=== PATIENT | female | born 2000 | race Caucasian/White ===

== ENCOUNTER 2019-11-15 18:49 | Observation (INO) | payer OTHER, SELFPAY ==
--- NOTE | 2019-11-15 18:49 | OBADM ---
This patient, Anna Dang, admitted to the OB room [facility] Post [facility] for observation. Patient/family oriented to hospital policies and general routines including ID bracelet, bed and alarms, visiting hours, pain management, procedures, bathroom and other care routines, personal items, smoking policy, room service/diet, and visiting hours. Patient/Family are encouraged to report perceived risks to care and to ask questions if they do not understand what they are told or what they should do.
[2019-11-15 19:15] VITALS: BP 121/68; PULSE 79
[2019-11-15 19:28] LABS: Add Urine Microscopic? YES; Amorphous Sediment Urine Few; Appearance Urine Clear (Clear); Bacteria Urine Trace /hpf; Bilirubin Urine Negative (Negative); Blood Urine Negative (Negative); Color Urine Straw (Yellow); Glucose Urine UA Negative (Negative); Ketones Urine 1+ mg/dL (Negative); Leukocyte Esterase Ur Negative LEU/UL (NEGATIVE); Nitrate Urine Negative (Negative); Protein Urine Negative (Negative); RBC Urine 0-2 /hpf (0-2); Specific Grav Ur 1.011 (1.001-1.035); Squamous Epithelial Cell Urine Many /hpf (Few); Urobilinogen Urine Negative mg/dL (<2.0); WBC Urine 0-3 /hpf (0-3)
[2019-11-15 19:30] VITALS: BP 102/71; PULSE 91
[2019-11-15 19:45] VITALS: BP 99/69; PULSE 96
[2019-11-15 20:00] VITALS: BP 99/56; PULSE 74
[2019-11-15 20:45] VITALS: BP 128/80; PULSE 99; TEMP 37.7
[2019-11-15] MEDS: TERBUTALINE SULFATE 1 MG/ML VIAL 0.25 MG SUB-Q (21:20)
[2019-11-15 21:36] VITALS: BMI 25.3
[2019-11-15 21:59] VITALS: TEMP 37.4
[2019-11-15 22:02] LABS: Fetal Fibronectin Negative
--- NOTE | 2019-12-16 11:12 | P.PNOB_ITS ---
OB - Triage/Final Diagnosis Evaluation Laboratory results: Laboratory Tests 11/15/19 11/15/19 19:12 21:27 Urine Color Straw Urine Appearance Clear Urine pH 8.0 Ur Specific [place] 1.011 Urine Protein Negative Urine Glucose (UA) Negative Urine Ketones 1+ H Ur Blood (Man) Negative Urine Nitrate Negative Urine Bilirubin Negative Urine Urobilinogen Negative Ur Leukocyte Esterase Negative Urine RBC 0-2 Urine WBC 0-3 Ur Squamous Epith Cells Many H Amorphous Sediment Few H Urine Bacteria Trace Fibronectin Negative Final Diagnosis (1) contractions: Code(s): O47.9 - False labor, unspecified Status: Acute
== END 2019-11-15 22:25 | disposition home or self-care (01) ==
PROVIDERS: Admitting Provider Obstetrics & Gynecology; Visit Provider Obstetrics & Gynecology
DX: O47.03 False labor before 37 completed weeks of gestation, third trimester (principal); Z3A.30 30 weeks gestation of pregnancy
CPT/HCPCS: 81001; 82731; 87086; 87088; 96372; G0378; G0379; J3105

== ENCOUNTER 2019-12-28 15:25 | Outpatient (RCR) | payer OTHER, SELFPAY ==
--- NOTE | ~2019-12-28 | US_ITS ---
EXAMINATION: US OB BPP wo non-stress EXAM DATE: 12/28/2019 16:44 INDICATION: Decreased movement. Third trimester. TECHNIQUE: Pelvic obstetrical transabdominal sonogram was performed by a technologist. There are mu ltiple grayscale and Doppler images available for interpretation. There are no earlier studies of th is gestation for comparison. FINDINGS: There is a single fetus identified in vertex presentation with a heart rate of 139 beats pe r minute. The placenta is located in the anterior position. There is no sonographic evidence of retr oplacental hemorrhage identified. BIOPHYSICAL PROFILE (performed by the technologist) breathing (30 sec sustained breathing in 30 minutes): 2 out of 2 movement (3 gross body movements in 30 minutes): 2 out of 2 tone (one episode of lwikwlo-eemarvohq-iiuuznd limb movement): 2 out of 2 Amniotic fluid pocket (2 cm): 2 out of 2 Total score: 8 out of 8 IMPRESSION: 1. Single fetus with heart rate of 139 bpm. 2. Normal biophysical profile score of 8 out of 8. Reviewed, dictated and finalized at location A.
[2019-12-28 16:50] VITALS: BP 130/89; PULSE 86
== END 2020-01-25 08:19 | disposition home or self-care (01) ==
LOC: ANHOBOP 15:25
PROVIDERS: Visit Provider Obstetrics & Gynecology
DX: O36.8130 Decreased fetal movements, third trimester, not applicable or unspecified (principal); Z3A.37 37 weeks gestation of pregnancy
CPT/HCPCS: 59025; 76819

== ENCOUNTER 2020-01-06 13:05 | Outpatient (CLI) | payer OTHER, SELFPAY ==
[2020-01-06 13:30] VITALS: BP 130/90; PULSE 85
[2020-01-06 14:00] VITALS: BP 131/84; PULSE 80
[2020-01-06 14:01] LABS: Basophils Absolute Auto 0.1 K/mm3 (0.0-0.1); Basophils Percent Auto 0.5 % (0.2-1.2); Eosinophils Absolute Auto 0.1 K/mm3 (0-0.3); Eosinophils Percent Auto 0.6 % (0-4.4); Hematocrit 36.8 % (37.0-47.0); Hemoglobin 12.5 g/dL (12.0-15.0); Immature Granulocyte Absolute 0.17 K/mm3 (0.00-0.031); Immature Granulocyte Percent A 1.7 % (0-0.5); Lymphocytes Absolute Auto 1.23 K/mm3 (0.9-3.2); Mean Corpuscular Hemoglobin 30.9 pg (26-34); Mean Corpuscular Volume 90.9 fl (80-100); Mean Platelet Volume 9.7 fl (7.4-10.4); Neutrophils Absolute Auto 7.7 K/mm3 (1.3-6.7); Neutrophils Percent Auto 75.2 % (45.5-73.1); Platelet Count Result 275 k/mm3 (150-375); Red Blood Count 4.05 M/mm3 (4.2-5.4); White Blood Count 10.3 K/mm3 (4.5-10.0)
[2020-01-06 14:04] LABS: Add Urine Microscopic? NO; Appearance Urine Clear (Clear); Bilirubin Urine Negative (Negative); Blood Urine Negative (Negative); Color Urine Straw (Yellow); Glucose Urine UA Negative (Negative); Ketones Urine Negative (Negative); Leukocyte Esterase Ur Negative LEU/UL (NEGATIVE); Nitrate Urine Negative (Negative); Protein Urine Negative (Negative); Urobilinogen Urine Negative mg/dL (<2.0)
[2020-01-06 14:08] LABS: Creatinine Urine 38.4 mg/dL; Total Protein Urine Random 12 mg/dL
[2020-01-06 14:12] LABS: Blood Urea Nitrogen 8 mg/dL (7-17); Carbon Dioxide 26 mmol/L (22-30); Chloride 105 mmol/L (98-107); Sodium 134 mmol/L (137-145)
[2020-01-06 14:13] LABS: Alanine Aminotransferase 17 U/L (4-35); Albumin Level 3.5 g/dL (3.5-5.1); Alkaline Phosphatase 86 U/L (38-126); Aspartate Amino Transferase 26 U/L (14-36); Bilirubin,Total 0.4 mg/dL (0.2-1.3); Calcium 8.8 mg/dL (8.4-10.2); Estimated Glomerular Filt Rate > 60; Glucose 83 mg/dL (65-105); Uric Acid 3.7 mg/dL (2.5-7.5)
[2020-01-06 14:15] VITALS: BP 131/86; PULSE 91
[2020-01-06 14:30] VITALS: BP 119/73; PULSE 81
--- NOTE | 2020-01-06 14:37 | PC.NURSE ---
Nikkie Celaya notified of lab results and BP's. OK to dc home and follow up next Thursday or Thu in office.
== END 2020-01-06 14:40 | disposition home or self-care (01) ==
LOC: ANHOBOP 13:27 → ANHOBPP 13:30
PROVIDERS: Advanced Practice Midwife; Visit Provider Obstetrics & Gynecology
DX: O13.9 Gestational [pregnancy-induced] hypertension without significant proteinuria, unspecified trimester (principal)
CPT/HCPCS: 36415; 59025; 80053; 81003; 82570; 84156; 84550; 85025; 87086; 99199

== ENCOUNTER 2020-01-12 12:37 | Outpatient (CLI) | payer OTHER, SELFPAY ==
[2020-01-12 13:00] VITALS: BP 119/78; PULSE 75
[2020-01-12 13:15] VITALS: BP 124/86; PULSE 68
[2020-01-12 13:30] VITALS: BP 120/81; PULSE 73
== END 2020-01-12 13:44 | disposition home or self-care (01) ==
LOC: ANHOBOP 12:49 → ANHOBPP 12:50
PROVIDERS: Visit Provider Obstetrics & Gynecology
DX: O13.9 Gestational [pregnancy-induced] hypertension without significant proteinuria, unspecified trimester (principal)
CPT/HCPCS: 59025; 99199

== ENCOUNTER 2020-01-24 16:57 | Inpatient (IN) | payer OTHER, SELFPAY ==
[2020-01-24] VITALS (14 sets, daily range): BP systolic 126–145; BP diastolic 75–99; PULSE 64–94; TEMP 36.9; BMI 29.3
--- NOTE | 2020-01-24 16:57 | LDADM ---
This patient, Anna Dang, was admitted to Labor/Delivery/Recovery 104 on 01/24/20 at 16:57. Plans for labor, pain management and were discussed with patient. Patient/family oriented to hospital policies and general routines including ID bracelet, bed and alarms, visiting hours, pain management, procedures, bathroom and other care routines, personal items, smoking policy, room service/diet and guest tray routines, security routines, and visiting hours. Patient/Family are encouraged to report perceived risks to care and to ask questions if they do not understand what they are told or what they should do. See OBIX for further documentation.
--- NOTE | 2020-01-24 17:31 | WPDANESEPP ---
Anes - Eval Pre Procedure Procedure: Labor epidural Date/Time: 01/24/20 17:31 Surgeon: Behzad Preop Diagnosis: Abd pain with contractions Pre Op Diagnosis: iol Patient Data Age: 19 Gender: F Height: Weight: Allergies Allergy/AdvReac Type Severity Reaction Status Date / Time No Known Allergies Allergy Unverified 04/21/17 17:35 Home Medications Medication Instructions Recorded Confirmed Type PNV cmb#95-ferrous fumarate-FA 1 tablet PO DAILY 12/28/19 12/28/19 History [] diphenhydramine HCl [Allergy 25 mg PO Q6H PRN 12/28/19 12/28/19 History (diphenhydramine)] Patient hx anesthesia problems: none Family hx anesthesia problems: none PMFSH Past Medical History Medical History (Updated 01/24/20 @ 17:32 by Eusebio Babb CRNA) Asthma Bipolar 1 disorder HPV (human papilloma virus) anogenital infection and not yet delivered Family History Family History Grandparent Hypertension Cancer Asthma Diabetes mellitus Heart disease Thyroid disease Mother Asthma Father Psychiatric disorder Social History Social History Substance use: current Gender identity (if verbalized by the patient): Female Spiritual care concerns: No Exam Day of Procedure 01/24/20 17:31 Patient weight: normal Airway: Mallampati scale class II Neurological: alert and oriented
[2020-01-24 17:37] LABS: Basophils Percent Auto 0.3 % (0.2-1.2); Eosinophils Absolute Auto 0.1 K/mm3 (0-0.3); Eosinophils Percent Auto 0.5 % (0-4.4); Hematocrit 38.3 % (37.0-47.0); Immature Granulocyte Absolute 0.15 K/mm3 (0.00-0.031); Immature Granulocyte Percent A 1.2 % (0-0.5); Lymphocytes Absolute Auto 1.57 K/mm3 (0.9-3.2); Lymphocytes Percent Auto 12.4 % (18.3-44.2); Mean Corpuscular HGB Conc 33.9 g/dl (32-36); Mean Corpuscular Volume 91.4 fl (80-100); Mean Platelet Volume 10.1 fl (7.4-10.4); Monocytes Absolute Auto 1.4 K/mm3 (0.1-0.6); Monocytes Percent Auto 11.2 % (2.6-8.5); Neutrophils Absolute Auto 9.5 K/mm3 (1.3-6.7); Neutrophils Percent Auto 74.4 % (45.5-73.1); Platelet Count Result 305 k/mm3 (150-375); Red Blood Count 4.19 M/mm3 (4.2-5.4); Red Cell Distribution Width 12.5 % (11.5-14.5); White Blood Count 12.7 K/mm3 (4.5-10.0)
[2020-01-24] MEDS: DINOPROSTONE 10 MG VAG INSERT VAGINAL (17:41)
[2020-01-25] VITALS (79 sets, daily range): BP systolic 100–157; BP diastolic 65–112; PULSE 52–110; TEMP 36.9–38.1; O2SAT 100
[2020-01-25 07:17] LABS: Rapid Plasma Reagin Non-Reactive (NonReactive)
--- NOTE | 2020-01-25 07:21 | WPDOBADMIT ---
Obstetrics - Admit Note Admission Note: record reviewed. No pertinent additions to the history and/or any subsequent changes in the physical findings that are not consistent with the expected course of the were found.MIL at 41 weeks gestation, cervadil overnight, cervix 170/-2 AROM large amount of clear odorless fluid, fingers felt but were pulled back after rupture, anticipate vaginal delivery Additions to the history and/or subsequent changes in the physical findings follow. None.
[2020-01-25] MEDS: LACTATED RINGERS 1,000 ML 125 ML IV CONT ×4 (08:13→19:43)
[2020-01-25] MEDS: OXYTOCIN 30 UNITS/NS 500 ML 30 UNITS/500 ML BAG 6 UNITS IV CONT (08:14)
[2020-01-25] MEDS: ONDANSETRON INJ 4 MG/2 ML VIAL IV PUSH ×2 (10:12→19:43)
--- NOTE | 2020-01-25 23:55 | WPDOBADMIT ---
Obstetrics - Admit Note Admission Note: record reviewed. No pertinent additions to the history and/or any subsequent changes in the physical findings that are not consistent with the expected course of the were found. Additions to the history and/or subsequent changes in the physical findings follow. None.
--- NOTE | 2020-01-25 23:55 | PM.OBPRVD ---
OB - Delivery Note Procedure Delivery date: 01/25/20 Procedure: vaginal delivery Intrapartal events: None Induction method: AROM, per misoprostol protocol and per pitocin protocol Delivery monitor: external FHT, external uterine and internal uterine Route of delivery: Laceration description: None Specimen: No Estimated blood loss (mL): 55 Anesthesia type: Epidural Disposition: other () Baby Date of : 01/25/20 Time of : 23:42 Weeks of gestation at delivery: 41 Infant gender: Female Weight (pounds): 6 Weight (ounces): 12 presentation: vertex position: Left Occiput Anterior Placenta delivery description: Spontaneous cord vessel description: 3 Vessels, Clamped/Cut and Around Body x2 score one minute: 7 score five minutes: 9
[2020-01-26] VITALS (9 sets, daily range): BP systolic 122–158; BP diastolic 74–109; PULSE 55–84; RESP 16; TEMP 36.8–37.3; O2SAT 98–100
[2020-01-26] MEDS: OXYTOCIN 30 UNITS/NS 500 ML 30 UNITS/500 ML BAG 125 UNITS IV CONT (00:09)
[2020-01-26] MEDS: BENZOCAINE 20% AER SPR (*SP) 56 GM CAN 1 SPRAY TOPICAL (02:23)
[2020-01-26] MEDS: IBUPROFEN 600 MG TABLET PO ×4 (02:23→21:15)
[2020-01-26] MEDS: WITCH HAZEL 40 PADS 1 PAD TOPICAL (02:23)
[2020-01-26 06:10] LABS: Hematocrit 34.2 % (37.0-47.0); Hemoglobin 11.6 g/dL (12.0-15.0)
--- NOTE | 2020-01-26 07:40 | P.PNOB_ITS ---
OB - PN: Subj Subjective Date/time seen: 01/26/20 07:40 Patient comments: no complaints, pain well controlled and other (Lochia similar to menses) [place]borne baby status: doing well OB - PN: Obj Data Labs CBC & Chem 7: 01/26/20 05:54 Labs: Laboratory Results - last 24 hr 01/26/20 05:54 Hgb 11.6 L Hct 34.2 L OB - PN A/P Plan day: 1 (s/p vaginal delivery, doing well) Plan: routine care Time Spent With Patient Time: Total time spent is greater than 50% in coordination of care (as d ocumented) at patient's floor/unit and/or counseling patient: Exam Const: General: no acute distress GI: Inspection: other (Fundus firm and nontender at umbilicus) GI Palp: Yes Soft to palpation and No Tenderness to palpation present (GI) Extrem: General: no edema
[2020-01-26] MEDS: DOCUSATE SODIUM 100 MG CAPSULE PO ×2 (08:37→21:16)
[2020-01-26] MEDS: MULTIVIT/MIN/PREN/FOL AC/IRON TABLET 1 TAB PO (08:37)
--- NOTE | 2020-01-26 09:06 | WPDANLDPN2 ---
Anes-Prog Note L&D Date/Time: 01/26/20 09:06 Comfortable throughout: labor and delivery Neuraxial method: epidural Epidural/Spinal procedure site: clean & non-tender Neuro status: Neuro function grossly intact. Cardiovascular status: normal Respiratory status: normal Airway patency: baseline Mental status: baseline Post-Op hydration status: normal Vital Signs: Last Vital Signs Temp 37.1 C 01/26/20 03:00 Pulse 66 01/26/20 03:00 Resp 16 01/26/20 03:00 BP 122/75 01/26/20 03:00 Pulse Ox 100 01/25/20 15:47 I/O: Intake & Output 01/25/20 01/26/20 01/26/20 23:59 07:59 15:59 Intake Total 1100 800 Output Total 133 Balance 1100 667 Post-procedural complaints: none Patient feedback: Patient satisfied with anesthetic care.
--- NOTE | 2020-01-26 11:50 | PC.NURSE ---
Consulted with patient, mother reports slight tenderness with feeding, reporting is easily awoken and eager to feed. Reviewed infant feeding cues, frequencies, duration of feedings, feeding elimination flow sheet, and signs of adequate intake. Demonstrated stimulation techniques to wake for feeding. Observed mother latching in cradle positioning allowing infant to self attach with shallow latch. Assisted with to breast. Reviewed positioning/alignment cross cradle, holding breast in U hold and asymmetrical latch on. Discussed the rational for each. was able to latch correctly. Infant nursed eagerly, with steady draws and frequent swallowing noted. Reviewed signs of a correct latch, effective nursing and suck swallow ratio. Infant was able to maintain latch without discomfort to mother. Mother reports has not been latching as deeply or feeding as continuous. Nipple care reviewed. Suggested mother stimulate to keep infant awake and nursing effectively for increased intake and to assist with maintaining deep latch. Instructed mother to call out for RN assistance if she is unable to latch infant for feeding or she has discomfort with nursing. Instructed feeding should be initiated three hours from start of last feeding or if feeding cues are noted before. Mother voiced understanding of information shared.
[2020-01-26] MEDS: LANOLIN (LANSINOH) 7.5 GM CREAM 1 APPLIC TOPICAL (21:16)
[2020-01-27] MEDS: IBUPROFEN 600 MG TABLET PO ×2 (05:40→12:42)
--- NOTE | 2020-01-27 07:14 | PM.OBPNVD ---
OB - PN: Subj Subjective Date/time seen: 01/27/20 07:14 Patient comments: no complaints baby status: doing well OB - PN: Obj Data Labs CBC & Chem 7: 01/26/20 05:54 OB - PN A/P Plan day: 2 Plan: discharge home Time Spent With Patient Time: Total time spent is greater than 50% in coordination of care (as documented) at patient's floor/unit and/or counseling patient: Exam Const: General: comfortable Resp: Effort & Inspection: normal respiratory effort Psych: Appearance: grossly normal Affect: normal affect Attitude: cooperative Judgement: Good judgement present (Psych)
[2020-01-27 08:20] VITALS: BP 133/80; PULSE 71; RESP 18; TEMP 36.5; O2SAT 99
[2020-01-27] MEDS: MULTIVIT/MIN/PREN/FOL AC/IRON TABLET 1 TAB PO (08:35)
[2020-01-27] MEDS: DOCUSATE SODIUM 100 MG CAPSULE PO (08:36)
--- NOTE | 2020-01-27 12:52 | PC.NURSE ---
Patient viewed the discharge video Mother & Baby Care, The First Two Weeks . Patient was given the opportunity and encouraged to ask questions. Patient verbalized understanding of information shared and has been given the mother/baby guide for home reference.
--- NOTE | 2020-01-27 13:00 | PC.NURSE ---
Observed mother is able to independently latch with appropriate positioning/alignment. She reports slight any nipple discomfort which is resolving with deeper latch. Mother is feeding as required and waking infant to feed if needed. Infant has had at least 8 effective feedings in the past 24 hours, and is currently meeting outcomes for weight, output, jaundice and feeding frequencies. Mother states she feels confident to continue effective at home. Reviewed transition to breast milk, signs of adequate intake, and engorgement/relief. Instructed to call ICP if intake/output less than required. Reviewed regular medications mother is taking. Information provided per Rosemarie. Reviewed community resources on the [facility] website and in the Mom/Baby guide. Information on outpatient services provided. Mother has no further questions at this time.
[2020-01-28 10:12] VITALS: BP 130/80; PULSE 84; RESP 20; TEMP 37.1
--- NOTE | 2020-02-03 07:50 | PM.OBDSVD ---
DS: Admitting Diagnosis Admitting Diagnosis Admitting Diagnosis: Encounter for supervision of normal , unspecified, third trimester OB - DS: Summary OB Procedures : None OB Procedures Intrapartum: Spontaneous Vag Delivery OB Procedures: : None Time Spent with Patient Time attestation: Total time spent providing and/or coordinating discharge services: Discharge Plan Discharge Attending physician on discharge: Antonietta Stahl Consulting providers: Mahad Abrams ; Katie Celaya Discharging Clinician: Katie Celaya Patient Disposition: Home, Self-Care Activity: pelvic rest Diet: regular Discharge Instructions: Education: Mom and Baby Guide Given to: Mother Follow-Up: Call your delivering provider's office for an appointment to be seen in: 4 Weeks Mom and baby should come to the [facility] for the follow-up appointment. Appointment Date/Time: January 28, 2020 at 10:00 am What to expect at your follow-up visit: Physical Assessment Call [phone] if you are unable to keep your appointment time. BREAST CARE: 1. Wear a snug supportive bra. 2. For engorgement discomfort: Breast Feeding: A. Apply warm moist washcloths B. Express milk as needed to relieve engorgement C. Wear loose clothing 3. For sore nipples: A. Identify correct latch-on B. Apply warm moist washcloths before and after nursing C. Air dry nipples after nursing D. May apply Lansinoh cream to nipples EPISIOTOMY/PERINEAL CARE: 1. Until bleeding stops, use your melissa bottle after urinating 2. Change your pad frequently throughout the day 3. You may take sitz baths several times a day (fill your bathtub with warm water and soak for 20 minutes.) Do NOT bathe in the water 4. No tub baths until seen by your physician - You may shower ACTIVITY: 1. Rest as much as possible. 2. Do not exercise or lift anything heavier than your baby (such as laundry or other children.) 3. Avoid stairs or driving as much as possible. 4. Do not put anything into the vagina. No douching, tampons, or sexual activity until seen by physician. NOTIFY PHYSICIAN IF YOU HAVE ANY QUESTIONS OR IF ANY OF THE FOLLOWING SYMPTOMS OCCUR: 1. If your episiotomy or incision becomes red, swollen, or more painful than what you have experienced in the hospital. 2. If your vaginal bleeding becomes foul smelling. 3. If your vaginal bleeding becomes more heavy than a period or if your bleeding changes from pink to bright red. However, you may pass an occasional walnut-sized clot once or twice for the first week . 4. If you experience a sharp, shooting pain in you calves. 5. If you discover a hard, reddened area on your breast or if you experience flu-like symptoms. DIET: 1. Eat regular, well-balanced meals. 2. Drink plenty of fluids daily. If , drink to thirst. Patient Instructions: Antibiotic Form Stand Alone Forms: General Discharge Information Follow-up/Referrals: Katie Celaya CNM [Certified Nurse Sewage Screen Operator] - 4 Weeks Discharge Medications: Continued PNV cmb#95-ferrous fumarate-FA [] 28 mg iron- 800 mcg Tablet 1 tablet PO DAILY RF: 0 diphenhydramine HCl [Allergy (diphenhydramine)] 25 mg Capsule 25 mg PO Q6H PRN (Reason: Allergy Symptoms) RF: 0 Date of admission: 01/24/20 16:57 Primary Care Provider: PHYSICIAN,FIELD SUPERVISOR [employer] Admitting Provider: Antonietta Stahl Discharge Date/Time: 01/27/20 14:48 Attending physician on admission: Ana Wen
== END 2020-01-27 14:48 | disposition home or self-care (01) | DRG 560 ==
LOC: ANHOB2 01-27 08:56 → ANHLDR 01-31 11:58 → ANHOB2 01-31 11:58
PROVIDERS: Advanced Practice Midwife; Admitting Provider Obstetrics & Gynecology; Visit Provider Obstetrics & Gynecology
DX: O75.2 Pyrexia during labor, not elsewhere classified (principal); O76 Abnormality in fetal heart rate and rhythm complicating labor and delivery; O69.82X0 Labor and delivery complicated by other cord entanglement, without compression, not applicable or unspecified; Z3A.41 41 weeks gestation of pregnancy; Z37.0 Single live birth
CPT/HCPCS: 36415; 85014; 85018; 85025; 86592; 86850; 86900; 86901; A9270; J0131; J2405; J2590; J2795; J3010; J7120

== ENCOUNTER 2020-05-15 17:20 | Emergency (ER) | payer OTHER, SELFPAY ==
[2020-05-15 17:26] VITALS: BP 146/86; PULSE 95; RESP 16; TEMP 36.6; O2SAT 99
--- NOTE | 2020-05-15 17:26 | ED.WOUNDLAC ---
HPI - Wound/Laceration General Chief Complaint: Wound/Laceration Stated Complaint: cat scratches on wrists/arms and thigh Time Seen by Provider: 05/15/20 17:26 Source: patient and RN notes reviewed History of Present Illness HPI narrative: Patient is a 19-year-old female who presents the urgent care with complaints of cat scratches to the right arm and left thigh. Patient also has scratches to the left wrist. States that she spoke to her breast milk and safety and health consultant and they advised her to have the areas checked out. Patient denies any increase swelling or redness to the area. States that she only has indoor cats and got into the middle of a cat fight. Patient denies of any other acute complaints. Denies of any known fever. No acute distress noted. Patient read the plan of care. Related Data Home Medications Medication Instructions Recorded Confirmed PNV cmb#95-ferrous fumarate-FA 1 tablet PO DAILY 12/28/19 05/15/20 [] Allergies Allergy/AdvReac Type Severity Reaction Status Date / Time No Known Allergies Allergy Verified 05/15/20 17:36 Review of Systems Review of Systems: Narrative: CONSTITUTIONAL: Denies fever, chills, or sweats. EYES: Denies visual changes, redness, or discharge. ENT: Denies rhinorrhea, congestion, sore throat, or otalgia. CARDIOVASCULAR: Denies chest pain, palpitations, or edema. RESPIRATORY: Denies cough or dyspnea. GASTROINTESTINAL: Denies abdominal pain, nausea, vomiting, or diarrhea. GENITOURINARY: Denies dysuria or hematuria. SKIN: Reports of cat scratches to left wrist, right forearm and left thigh MUSCULOSKELETAL: Denies back pain, joint pain, or myalgia. NEUROLOGIC: Denies headache, numbness, or weakness. All other systems reviewed are negative, except as documented in HPI. [facility] Past Medical History Medical History (Updated 05/15/20 @ 17:38 by MEGAN Ferrari) Asthma Bipolar 1 disorder HPV (human papilloma virus) anogenital infection and not yet delivered Social History Social History Smoking status: Never smoker Substance use: current Gender identity (if verbalized by the patient): Female Spiritual care concerns: No Comments At the time of my signature, I reviewed and agree with the nursing past medical, surgical, social, and family history. There is no relevant family history pertinent to the patient complaint. Exam Narrative: Exam Narrative: GENERAL: This is a well-nourished, well-developed patient, in no apparent distress. HEAD: normocephalic, atraumatic. EYES: PERRL. Sclera clear/white. Vision is grossly intact. EARS: External ears normal NOSE: External nose normal with no obvious nasal discharge, nares without redness, no rhinorrhea. THROAT: Mucous membranes moist NECK: Neck supple SKIN: Multiple linear scabbed superficial scratches noted to the right forearm, left wrist and left thigh without any surrounding erythema or drainage. Warm, intact with no suspicious lesions or rash, good texture and turgor. NEURO: awake, alert, and oriented to person, place and time. There were no obvious focal neurologic abnormalities. EXTREMITIES: No clubbing, cyanosis, or edema. Course Vital Signs Vital signs: Vital Signs Temperature 97.9 F 05/15/20 17:26 Pulse Rate 95 05/15/20 17:26 Respiratory Rate 16 05/15/20 17:26 Blood Pressure 146/86 H 05/15/20 17:26 Pulse Oximetry 99 05/15/20 17:26 Temperature 97.9 F 05/15/20 17:26 Pulse Rate 95 05/15/20 17:26 Respiratory Rate 16 05/15/20 17:26 Blood Pressure 146/86 H 05/15/20 17:26 Pulse Oximetry 99 05/15/20 17:26 Reviewed-patient is informed that they may have pre-hypertension or hypertension based on a blood pressure reading in the department. I recommend the patient call the primary care provider listed on their discharge instructions or a physician of their choice this week to arrange follow-up for further evalua
== END 2020-05-15 17:43 | disposition home or self-care (01) ==
PROVIDERS: Emergency Provider Nurse Practitioner Family
DX: O9A.219 Injury, poisoning and certain other consequences of external causes complicating pregnancy, unspecified trimester (principal); Z3A.00 Weeks of gestation of pregnancy not specified; S50.811A Abrasion of right forearm, initial encounter; S60.812A Abrasion of left wrist, initial encounter; S70.312A Abrasion, left thigh, initial encounter; W55.03XA Scratched by cat, initial encounter; J45.909 Unspecified asthma, uncomplicated
CPT/HCPCS: 99213; G0463

== ENCOUNTER 2022-04-16 15:07 | Emergency (ER) | payer OTHER, SELFPAY ==
[2022-04-16 15:14] VITALS: BP 108/59; PULSE 97; RESP 20; TEMP 37.1; O2SAT 100
--- NOTE | 2022-04-16 15:18 | ED.SKABFB ---
HPI - Skin/Abscess/Foreign Bdy General Chief complaint: Skin/Abscess/Foreign Body Stated complaint: Skin Problem Time Seen by Provider: 04/16/22 15:19 Source: patient and RN notes reviewed History of Present Illness HPI narrative: Patient is a 21-year-old female who presents the urgent care with complaints of a possible abscess to the sacral region. Patient states that she has had a tender area there for many years but the last 2 years she has had off-and-on pain. Patient denies any drainage of the area. States that for the last few weeks is gotten more painful and her primary care doctor told her to go to the emergency room or the urgent care for drainage. Patient is not taken anything [id number] for her symptoms. No other acute complaints. No acute distress noted. Patient aware of the plan of care. Some parts of this dictation were generated by voice recognition software and may contain typographical and/or grammatical inaccuracies. Related Data Home Medications Medication Instructions Recorded Confirmed No Home Medications 04/16/22 04/16/22 Allergies Allergy/AdvReac Type Severity Reaction Status Date / Time No Known Allergies Allergy Verified 04/16/22 15:32 [facility] Past Medical History Medical History (Updated 04/16/22 @ 15:40 by MEGAN Ferrari) Asthma Bipolar 1 disorder HPV (human papilloma virus) anogenital infection and not yet delivered Family History Family History Grandparent Hypertension Cancer Asthma Diabetes mellitus Heart disease Thyroid disease Mother Asthma Father Psychiatric disorder Social History Social History Smoking status: Never smoker Substance use: current Gender identity (if verbalized by the patient): Female Spiritual care concerns: No Exam Narrative: GENERAL: This is a well-nourished, well-developed patient, in no apparent distress. HEAD: normocephalic, atraumatic. EYES: PERRL. Sclera clear/white. Vision is grossly intact. EARS: External ears normal NOSE: External nose normal with no obvious nasal discharge, nares without redness, no rhinorrhea. THROAT: Mucous membranes moist NECK: Neck supple SKIN: Pea-sized, tender, deep, firm nodule to be sacrum questionable to pilonidal cyst without notable signs or symptoms of infection. NEURO: awake, alert, and oriented to person, place and time. There were no obvious focal neurologic abnormalities. EXTREMITIES: No clubbing, cyanosis, or edema. Course Course Level of Care: Express Care Visit Vital Signs Vital signs: Vital Signs Temperature 98.7 F 04/16/22 15:14 Pulse Rate 97 04/16/22 15:14 Respiratory Rate 20 04/16/22 15:14 Blood Pressure 108/59 L 04/16/22 15:14 Pulse Oximetry 100 04/16/22 15:14 Oxygen Delivery Room Air 04/16/22 15:14 Temperature 98.7 F 04/16/22 15:14 Pulse Rate 97 04/16/22 15:14 Respiratory Rate 20 04/16/22 15:14 Blood Pressure 108/59 L 04/16/22 15:14 Pulse Oximetry 100 04/16/22 15:14 Oxygen Delivery Room Air 04/16/22 15:14 Reviewed MDM - Skin/Abscess/Foreign Bdy MDM Narrative Medical decision making narrative: Explained to the patient that the current pilonidal cyst is very deep and even though it is tender, there are no signs of infection. These types of cyst need surgical removal and you will need to follow-up with a general surgeon. If you develop any increase in pain associated with an abscess to the surface with redness, swelling, fever?follow-up with your PCP or in the emergency room if necessary. Antibiotics are not necessary at this time. Advised the patient to keep the area very dry and clean. Use Tylenol/ibuprofen as needed. Follow-up with your PCP for reevaluation within 1 week. Differential Diagnosis Differential diagnosis: Likely abscess of skin or subcutaneous tissue, viral exanthem, dermatophytos
== END 2022-04-16 15:43 | disposition home or self-care (01) ==
PROVIDERS: Emergency Provider Nurse Practitioner Family; PCP Nurse Practitioner Family
DX: L05.91 Pilonidal cyst without abscess (principal); J45.909 Unspecified asthma, uncomplicated
CPT/HCPCS: 99211; G0463

== ENCOUNTER 2022-04-17 16:26 | Emergency (ER) | payer OTHER, SELFPAY ==
[2022-04-17 16:28] VITALS: BP 120/68; PULSE 88; RESP 18; TEMP 36.6; O2SAT 100
--- NOTE | 2022-04-17 17:11 | ED.SKABFB ---
HPI - Skin/Abscess/Foreign Bdy General Chief complaint: Skin/Abscess/Foreign Body Stated complaint: Cyst Time Seen by Provider: 04/17/22 16:51 Source: patient and RN notes reviewed Mode of arrival: ambulatory Limitations: no limitations History of Present Illness HPI narrative: This is a 21 year old female who presents for evaluation of pilonidal cyst. Patient has noticed small lump at her tail bone for years, but for past 2 days she has had tenderness at area. She was evaluated at an urgent care and told she needed referral for surgery. Today she is having more pain and swelling. She also thinks it has opened up. She was told she needed to come to ER for drainage. She denies nausea, vomiting and fever. Related Data Allergies Allergy/AdvReac Type Severity Reaction Status Date / Time No Known Allergies Allergy Verified 04/16/22 15:32 Review of Systems Review of Systems: CONSTITUTIONAL: Denies fever, chills, or sweats. EYES: Denies visual changes, redness, or discharge. ENT: Denies rhinorrhea, congestion, sore throat, or otalgia. CARDIOVASCULAR: Denies chest pain, palpitations, or edema. RESPIRATORY: Denies cough or dyspnea. GASTROINTESTINAL: Denies abdominal pain, nausea, vomiting, or diarrhea. GENITOURINARY: Denies dysuria or hematuria. SKIN: Denies rash or itching. MUSCULOSKELETAL: Denies back pain, joint pain, or myalgia. NEUROLOGIC: Denies headache, numbness, or weakness. PSYCHIATRIC: Denies anxiety or depression. PMFSH Past Medical History Medical History Asthma Bipolar 1 disorder HPV (human papilloma virus) anogenital infection and not yet delivered Family History Family History Grandparent Hypertension Cancer Asthma Diabetes mellitus Heart disease Thyroid disease Mother Asthma Father Psychiatric disorder Social History Social History Smoking status: Never smoker Substance use: current Gender identity (if verbalized by the patient): Female Spiritual care concerns: No Exam Const: General: alert Nutritional Appearance: well nourished Orientation/consciousness: patient oriented x3 Eyes: EOM: EOMs intact bilaterally Resp: Effort & Inspection: normal respiratory effort Skin: General skin exam: normal color Rashes: no rashes Other: small opening at gluteal crease with scant discharge. no erythema, there is mild tenderness Neuro: General: patient oriented x3, moves all extremities and CN's II-XI intact bilaterally Cranial nerves: Yes Nystagmus not present Speech: normal speech Gait exam (Neuro): Normal gait present Extrem: General: normal to inspection Psych: Mental Status: mental status grossly normal Affect: normal affect Attitude: cooperative Course Reevaluation(s) Reevaluation #1: I discussed with patient that no pus obtained this time. Will discharge with antibiotics, pain medication and she will do sitz baths. Date: 04/17/22 Time: 18:26 Vital Signs Vital signs: Vital Signs Temperature 97.9 F 04/17/22 16:28 Pulse Rate 88 04/17/22 16:28 Respiratory Rate 18 04/17/22 16:28 Blood Pressure 120/68 04/17/22 16:28 Pulse Oximetry 100 04/17/22 16:28 Oxygen Delivery Room Air 04/17/22 16:28 Temperature 97.9 F 04/17/22 16:28 Pulse Rate 88 04/17/22 16:28 Respiratory Rate 18 04/17/22 16:28 Blood Pressure 120/68 04/17/22 16:28 Pulse Oximetry 100 04/17/22 16:28 Oxygen Delivery Room Air 04/17/22 16:28 Procedures Abscess I/D other: Date of Incision: 04/17/22 Time of Incision: 18:24 Side (if applicable): left (pilonidal gluteal) Local Anesthetic: lidocaine 1% and with epi Amount of anesthesia used (mL): 5 Technique: incised with #11 blade Irrigation: Yes Packing used?: none I&D Results: Blood
[2022-04-17] MEDS: LIDO 1%/EPINEPHRINE 1:100,000 20 ML VIAL INFILTRATE (18:19)
[2022-04-17] MEDS: ONDANSETRON HCL ODT 4 MG TABLET PO (18:26)
[2022-04-17] MEDS: HYDROcodone/acetaminophen (*CRX) 5-325 MG TABLET 1 TAB PO (18:27)
== END 2022-04-17 18:39 | disposition home or self-care (01) ==
PROVIDERS: Emergency Provider General Practice; PCP Nurse Practitioner Family
DX: L05.91 Pilonidal cyst without abscess (principal); J45.909 Unspecified asthma, uncomplicated
CPT/HCPCS: 10080; 99283; A9270

== ENCOUNTER 2022-09-29 01:03 | Day surgery (SDC) | payer OTHER, SELFPAY ==
[2022-09-24 15:21] VITALS: BMI 23.3
--- NOTE | 2022-09-24 15:27 | PC.NURSE ---
Report to the Outpatient Waiting Room, entrance under the green pavilion located off [facility], at time 1000 on date 09/29/22. Planned Procedure Time: 1200. Time changes happen often and if your time is changed the preop area will call you the afternoon before. - You and your visitor will be asked to self-screen and do not enter if you have any COVID symptoms. - Only one visitor is requested with a max of two and NO children visitors are allowed at this time. - The patient visitor may be requested to leave or wait in car when not with patient due to distancing restrictions. - A mask is optional within the hospital. Patients may have clear liquids (water, carbonated beverages, clear teas, apple juice) until 3 hours prior to surgery with a maximum of 20 ounces. - No food from midnight until time of surgery Take the following medications with a SIP of water the morning of surgery: NONE Medications to discontinue per physician: N/A Date to take last dose: N/A Please no make-up, nail yoruba, hairspray, perfume, deodorant, or body powder the day of surgery. No jewelry (including any body piercings) or valuables the day of surgery, leave them at home. Please take a shower or bath the night before, or the morning of, surgery with an antibacterial soap. Wear comfortable, loose fitting clothing. - Jewelry must be removed prior to entering the operating room. Rings and piercings that are not removed may be cut off. - The hospital will not accept responsibility for valuables. - Please leave all valuables, including medications, at home the day of surgery. If you are going home after surgery, a licensed dump truck driver off highway must drive you home. - NO public transportation without another adult if you receive anesthesia. - We recommend that an adult stay with you for 24 hours following discharge. - We also recommend that you do not drive, make important decision, drink alcoholic beverages, or take any drugs that were not prescribed by your health care provider for at least 24 hours after your discharge time. Follow any additional instructions given to you from your surgeon. If you or anyone in your household have experienced Covid symptoms in the past week, please notify your surgeon or the nurse liaison at the phone number below for possible testing. Telephone instructions given to PT - KHURRAM LUO and asked if any additional questions and then verbalized understanding. Patient advised to call surgeon office or pre surgery nurse liaison [phone] if any additional questions.
--- NOTE | 2022-09-29 08:08 | WPDANESEPPF ---
Anes - Initial Pre Proc Eval Procedure: Operation Date: 09/29/22 12:00 Proposed Procedures p Hysteroscopy, Intrauterine Device Removal - Tiffanie Gorman MD Date/Time: 09/29/22 08:08 Surgeon: Tiffanie Gorman MD Pre Op Diagnosis: misplaced IUD Patient Data Age: 22 Gender: F Height: 1.65 m Weight: 63.5 kg Allergies Allergy/AdvReac Type Severity Reaction Status Date / Time No Known Allergies Allergy Verified 09/24/22 15:20 Home Medications Medication Instructions Recorded Confirmed Type lactase 3,000 unit tablet (Lactaid) 3,000 unit PO ONCE PRN Abdominal 09/24/22 09/24/22 History Discomfort Patient hx anesthesia problems: none Family hx anesthesia problems: none Results Review: All pre-operative results and documents have been reviewed as part of the pre-operative evaluation. [facility] Past Medical History Medical History Asthma Bipolar 1 disorder HPV (human papilloma virus) anogenital infection and not yet delivered Family History Family History Grandparent Hypertension Cancer Asthma Diabetes mellitus Heart disease Thyroid disease Mother Asthma Father Psychiatric disorder Social History Social History Smoking packs per day: 0.5 Smoking cigarettes per day: 10.0 Years smoked: 5 Smoking pack-years: 2.50 Smoking status: Former smoker Tobacco type: cigarettes and e-cigarettes/vaping Smoking end date: 09/07/21 Alcohol intake: current Alcohol use details: 1/MONTH Substance use: current Substance use type: marijuana Living arrangements: with family Gender identity (if verbalized by the patient): Female Spiritual care concerns: No Anes - Eval Final PreProcedure Day of Procedure 09/29/22 08:08 Patient weight: normal Heart: regular rate and rhythm Lungs: clear to auscultation and normal air movement Airway: Mallampati scale class II Neurological: alert and oriented Last oral intake: >/= 8 hours ASA classification: II Emergent: no Anesthetic plan: proceed Anesthesia type and monitoring: general GIVS Results Review: All pre-operative results and documents have been reviewed as part of the pre-operative evaluation. Informed Consent: The patient's anesthetic plan and its attendant risks and benefits were discussed with the patient/family/POA. Questions were solicited and answers provided to the satisfaction of the patient/family/POA.
[2022-09-29] MEDS: LACTATED RINGERS 1,000 ML 30 ML IV CONT (10:57)
[2022-09-29 11:05] VITALS: BP 117/82; PULSE 110; RESP 16; TEMP 37.2; O2SAT 100
--- NOTE | 2022-09-29 11:53 | PM.IMHP ---
H&P: HPI History of Present Illness Date/Time: 09/29/22 11:53 Chief Complaint: retained IUD Narrative: Teodoro is a with mirena IUD in since 2019. [place] get [place] [facility] [place] it but it did not budge, and pt has severe anxiety, so doing it in the OR this time. She also has bipolar and asthma. Review of Systems Review of Systems: All systems reviewed & are unremarkable except as noted in HPI and below PMFSH Past Medical History Medical History Asthma Bipolar 1 disorder HPV (human papilloma virus) anogenital infection and not yet delivered Family History Family History Grandparent Hypertension Cancer Asthma Diabetes mellitus Heart disease Thyroid disease Mother Asthma Father Psychiatric disorder Social History Social History Smoking packs per day: 0.5 Smoking cigarettes per day: 10.0 Years smoked: 5 Smoking pack-years: 2.50 Smoking status: Former smoker Tobacco type: cigarettes and e-cigarettes/vaping Smoking end date: 09/07/21 Alcohol intake: current Alcohol use details: 1/MONTH Substance use: current Substance use type: marijuana Living arrangements: with family Gender identity (if verbalized by the patient): Female Spiritual care concerns: No Meds Home Medications and Allergies Home Medications Medication Instructions Recorded Confirmed Type lactase 3,000 unit tablet (Lactaid) 3,000 unit PO ONCE PRN Abdominal 09/24/22 09/24/22 History Discomfort Allergies Allergy/AdvReac Type Severity Reaction Status Date / Time No Known Allergies Allergy Verified 09/24/22 15:20 Vital Signs Vital Signs - 24 hr 09/29/22 11:05 Temperature 98.9 F Pulse Rate 110 H Respiratory Rate 16 Blood Pressure 117/82 Pulse Oximetry 100 Oxygen Delivery Room Air Exam Const: General: no acute distress Resp: Effort & Inspection: normal respiratory effort Auscultation: clear to auscultation bilaterally Cardio: Rate: regular rate Rhythm: regular rhythm GI: GI Palp: Yes Soft to palpation Extrem: General: normal to inspection Assessment and Plan Assessment and plan (1) IUD complication: Code(s): T83.9XXA - Unspecified complication of genitourinary prosthetic device, implant and graft, initial encounter Status: Acute Plan COnsented for HSC and IUD removal in OR, discussed RBA including failure to remove all or part of IUD. Questions answered. Will proceed.
--- NOTE | 2022-09-29 11:56 | WPDHPUPDATE1 ---
History and Physical Update Update Date/Time: 09/29/22 11:56 History and Physical has been reviewed, including an updated exam of the patient. There are NO changes in the patient's condition. Risks, benefits, and alternatives have been discussed and questions answered. Patient agrees to proceed with procedure.
[2022-09-29] MEDS: BUPIVACAINE/EPINEPHRINE 0.5% 10 ML VIAL INFILTRATE (12:31)
[2022-09-29] MEDS: FERRIC SUBSULFATE 8 ML SOLUTION WITH APPLICATOR TOPICAL (12:32)
--- NOTE | 2022-09-29 12:38 | W.PM.PROC2 ---
Procedure Note - Detailed Date of Procedure 09/29/22 Pre-op Diagnosis misplaced IUD Post-op Diagnosis Same Procedure Performed Hysteroscopy and IUD removal Surgeon Tiffanie Gorman MD Cooker Sulfite none Anesthesia MAC Indications IUD unable to remove in office Findings IUD and string in uterine cavity Description of Procedure The patient was taken to the OR and placed in dorthal lithotomy in [facility]. She received MAC anesthesia. A speculum was placed and the cervix grasped with a single tooth tenaculum. 10cc of 0.5% marcaine with epinephrine was instilled in a paracervical block. The cervix was sequentially dilated to accomodate a 5mm hysteroscope. The hysteroscope was inserted and the uterine cavity was visualized with the findings noted above. The IUD string was grasped firmly with the hysteroscopic grasper and with firm traction and the IUD was removed with the hysteroscope. The tenaculum was removed and the cervix was made hemostatic with Monsel's solution and pressure. The speculum was removed. The patient tolerated the procedure well. Estimated Blood Loss 5 Drains No Packing No Pathology Yes Complications No immediate complications Condition Stable Disposition Same day
[2022-09-29 12:41] VITALS: BP 106/56; PULSE 87; RESP 16; O2SAT 100
[2022-09-29 13:10] VITALS: BP 109/46; PULSE 66; RESP 16; O2SAT 98
[2022-09-29 13:40] VITALS: BP 109/55; PULSE 84; RESP 16; O2SAT 100
[2022-09-29 13:49] VITALS: BP 121/58; PULSE 64; RESP 16
== END 2022-09-29 13:55 | disposition home or self-care (01) ==
PROVIDERS: PCP Nurse Practitioner Family; Visit Provider Obstetrics & Gynecology
PROC: 0U5B8ZZ Destruction of Endometrium, Via Natural or Artificial Opening Endoscopic (ICD-10-PCS; CPT 58563; principal; 2022-09-29 12:00)
DX: T83.32XA Displacement of intrauterine contraceptive device, initial encounter (principal); Y84.8 Other medical procedures as the cause of abnormal reaction of the patient, or of later complication, without mention of misadventure at the time of the procedure; F31.9 Bipolar disorder, unspecified; F41.9 Anxiety disorder, unspecified; J45.909 Unspecified asthma, uncomplicated; A63.0 Anogenital (venereal) warts; Z87.891 Personal history of nicotine dependence
CPT/HCPCS: 58562; A9270; J2250; J2704; J3010; J7030; J7120

== ENCOUNTER 2023-01-23 15:04 | Emergency (ER) | payer OTHER, SELFPAY ==
[2023-01-23 15:10] VITALS: BP 116/73; PULSE 97; RESP 14; TEMP 37; O2SAT 100
[2023-01-23 15:19] VITALS: BP 116/73; PULSE 97; RESP 14; TEMP 37; O2SAT 100
--- NOTE | 2023-01-23 15:45 | ED.DENTAL ---
HPI - Dental/Oral General Chief complaint: Dental/Oral Stated complaint: Mouth Sore Time Seen by Provider: 01/23/23 15:46 Source: patient, RN notes reviewed and old records reviewed Mode of arrival: ambulatory Limitations: no limitations History of Present Illness HPI Narrative: 22 year old female who presents to [facility] care with complaints of discomfort to left upper jaw region related to red lesion on gum which has some white exudate under most posterior upper molar for the past 3 days. Patient reports that she saw her dentist recently for filling on right molar. Patient reports that she has some radiation of pain to her jaw has taken Ibuprofen and has used peroxide gargles, denies any pain to tooth.Patient reports no fevers or any facial swelling, no trismus noted. MD Complaint: tooth pain (gum lesion) Location: Tooth # (under #16 tooth) Onset (ago): day(s) (3) Severity scale (1-10): 3 Treatment prior to arrival: other (Ibuprofen and peroxide and water gargles) Related Data Home Medications Medication Instructions Recorded Confirmed lamotrigine 50 mg disintegrating 50 mg PO BID 01/23/23 01/23/23 tablet Allergies Allergy/AdvReac Type Severity Reaction Status Date / Time No Known Allergies Allergy Verified 01/23/23 15:18 Review of Systems Review of Systems: CONSTITUTIONAL: Denies fever, chills, or sweats. ENT: Denies rhinorrhea, congestion, sore throat, or otalgia. Reports dental pain lesion to gum area right below most posterior upper molar CARDIOVASCULAR: Denies chest pain, palpitations, or edema. RESPIRATORY: Denies cough or dyspnea. SKIN: Denies rash or itching. MUSCULOSKELETAL: Denies myalgia. NEUROLOGIC: Denies headache All systems reviewed & are unremarkable except as noted in HPI and below PMFSH Past Medical History Medical History Asthma Bipolar 1 disorder HPV (human papilloma virus) anogenital infection and not yet delivered Family History Family History Grandparent Hypertension Cancer Asthma Diabetes mellitus Heart disease Thyroid disease Mother Asthma Father Psychiatric disorder Social History Social History Smoking packs per day: 0.5 Smoking cigarettes per day: 10.0 Years smoked: 5 Smoking pack-years: 2.50 Smoking status: Former smoker Tobacco type: cigarettes and e-cigarettes/vaping Smoking end date: 09/07/21 Alcohol intake: current Alcohol use details: 1/MONTH Substance use: current Substance use type: marijuana Living arrangements: with family Gender identity (if verbalized by the patient): Female Spiritual care concerns: No Comments At time of signature, agree with nursing past medical, surgical, social and family history. There is no relevant family history pertinent to the presenting complaint Exam Narrative: GENERAL: Well-appearing, well-nourished, and in no acute distress. HEAD: Normocephalic, atraumatic. EYES: PERRLA and EOMI. ENT: Nares clear, no rhinorrhea or epistaxis. Mucous membranes moist. Patient has good dentition, lesion underneath left upper back molar that is red with white exudate, no trismus or Bryson angina or facial swelling. NECK: Supple. no lymphadenopathy CHEST: Clear to auscultation. No respiratory distress.SAO2 100% on room air HEART: Regular rate and rhythm. No murmur heard. Normal peripheral pulses. SKIN: Warm, dry, no rash. NEURO: No focal deficits. Alert and oriented x3. Course Course Emergency Course: Patient is aware of diagnosis, understands and agrees to treatment plan. Anticipatory guidance given. Patient agrees to follow-up as directed and is aware of reasons to seek care at the emergency department. Portions of this record may have been created with voice recognition software Level of Care: Express Care Visit
== END 2023-01-23 16:11 | disposition home or self-care (01) ==
PROVIDERS: Emergency Provider Registered Nurse; PCP Nurse Practitioner Family
DX: K05.20 Aggressive periodontitis, unspecified (principal); J45.909 Unspecified asthma, uncomplicated; F31.9 Bipolar disorder, unspecified; F12.90 Cannabis use, unspecified, uncomplicated
CPT/HCPCS: 99213; G0463

== ENCOUNTER 2023-04-02 15:03 | Outpatient (CLI) | payer OTHER, SELFPAY ==
--- NOTE | 2023-04-02 15:17 | ECG_ITS ---
Measurements Intervals [place] Rate: 76 P: 68 [place]: 141 QRS: 82 QRSD: 100 T: 69 QT: 366 QTc: 412 Interpretive Statements SINUS RHYTHM WITH SINUS ARRHYTHMIA INCOMPLETE RIGHT BUNDLE BRANCH BLOCK BORDERLINE ECG NO PREVIOUS ECG AVAILABLE FOR COMPARISON Electronically Signed On 04-02-2023 16:11:43 CDT by Efrain Conde D.O.
== END 2023-04-02 15:04 | disposition home or self-care (01) ==
LOC: ANHCARD 15:06
PROVIDERS: PCP Nurse Practitioner Family; Visit Provider Nurse Practitioner Family
DX: Z86.79 Personal history of other diseases of the circulatory system (principal); I45.10 Unspecified right bundle-branch block
CPT/HCPCS: 93005

== ENCOUNTER 2023-05-02 15:15 | Emergency (ER) | payer OTHER, SELFPAY ==
[2023-05-02 15:20] VITALS: BP 130/69; PULSE 93; RESP 20; TEMP 36.8; O2SAT 100
[2023-05-02 15:24] VITALS: BP 130/69; PULSE 93; RESP 20; TEMP 36.8; O2SAT 100
--- NOTE | 2023-05-02 15:24 | ED.FEMALEGU ---
HPI - Female Genitourinary General Chief complaint: Urogenital-Female Stated complaint: Urinary Problems History of Present Illness HPI Narrative: patient presents with urinary tract infection symptoms and vaginal irritation no concern for std no flank pain no gross hematuria and no suprapubic pain Related Data Home Medications Medication Instructions Recorded Confirmed lamotrigine 100 mg tablet mg 05/02/23 Allergies Allergy/AdvReac Type Severity Reaction Status Date / Time No Known Allergies Allergy Verified 01/23/23 15:18 Review of Systems Review of Systems: CONSTITUTIONAL: Denies fever, chills, or sweats. EYES: Denies visual changes, redness, or discharge. ENT: Denies rhinorrhea, congestion, sore throat, or otalgia. CARDIOVASCULAR: Denies chest pain, palpitations, or edema. RESPIRATORY: Denies cough or dyspnea. GASTROINTESTINAL: Denies abdominal pain, nausea, vomiting, or diarrhea. GENITOURINARY: Denies dysuria or hematuria. SKIN: Denies rash or itching. MUSCULOSKELETAL: Denies back pain, joint pain, or myalgia. NEUROLOGIC: Denies headache, numbness, or weakness. PSYCHIATRIC: Denies anxiety or depression. [facility] Past Medical History Medical History Asthma Bipolar 1 disorder HPV (human papilloma virus) anogenital infection and not yet delivered Family History Family History Grandparent Hypertension Cancer Asthma Diabetes mellitus Heart disease Thyroid disease Mother Asthma Father Psychiatric disorder Social History Social History Smoking packs per day: 0.5 Smoking cigarettes per day: 10.0 Years smoked: 5 Smoking pack-years: 2.50 Smoking status: Former smoker Tobacco type: cigarettes and e-cigarettes/vaping Smoking end date: 09/07/21 Alcohol intake: current Alcohol use details: 1/MONTH Substance use: current Substance use type: marijuana Living arrangements: with family Gender identity (if verbalized by the patient): Female Spiritual care concerns: No Comments At time of signature, agree with nursing past medical, surgical, social and family history. There is no relevant family history pertinent to the presenting complaint Exam Narrative: GENERAL: Well-appearing, well-nourished, and in no acute distress. HEAD: Normocephalic, atraumatic. EYES: PERRLA and EOMI. ENT: Nares clear, no rhinorrhea or epistaxis. Mucous membranes moist. NECK: Supple. CHEST: Clear to auscultation. No respiratory distress. HEART: Regular rate and rhythm. No murmur heard. Normal peripheral pulses. ABDOMEN: Soft, nontender, nondistended, normal active bowel sounds. EXTREMITIES: Normal range of motion. No edema. SKIN: Warm, dry, no rash. NEURO: No focal deficits. Alert and oriented x3. [place] Coma Scale Eye Opening: Spontaneous 4 Lisa Coma Scale Motor: Obeys Commands 6 [place] Coma Scale Verbal: Oriented 5 [place] Coma Scale Total 15 Course Course Level of Care: Express Care Visit Vital Signs Vital signs: Vital Signs Temperature 36.8 C 05/02/23 15:20 Pulse Rate 93 05/02/23 15:20 Respiratory Rate 20 05/02/23 15:20 Blood Pressure 130/69 05/02/23 15:20 Pulse Oximetry 100 05/02/23 15:20 Oxygen Delivery Room Air 05/02/23 15:20 Temperature 36.8 C 05/02/23 15:20 Pulse Rate 93 05/02/23 15:20 Respiratory Rate 20 05/02/23 15:20 Blood Pressure 130/69 05/02/23 15:20 Pulse Oximetry 100 05/02/23 15:20 Oxygen Delivery Room Air 05/02/23 15:20 Please ADRIANA schedule a followup visit with your personal physician for further evaluation and treatment. Including recheck and discussion of your blood pressure. If your symptoms persist, change or worsen significantly before you can contact your personal physician then please, without delay, go to the emergency d
== END 2023-05-02 15:39 | disposition home or self-care (01) ==
PROVIDERS: Emergency Provider Nurse Practitioner Family; PCP Nurse Practitioner Family
DX: N39.0 Urinary tract infection, site not specified (principal); N76.0 Acute vaginitis; F12.90 Cannabis use, unspecified, uncomplicated; J45.909 Unspecified asthma, uncomplicated
CPT/HCPCS: 81003; 87086; 87088; 99213; G0463

== ENCOUNTER 2023-05-08 13:35 | Outpatient (CLI) | payer OTHER, SELFPAY ==
--- NOTE | 2023-05-13 12:24 | WPDHOLTEREM ---
Holter/Event Monitor Holter/Event Monitor Date of procedure: 05/08/23 Holter/Event Procedure: 48 Hr Holter Monitor Indications: Abnormal EKG Conclusion: 1. 48 hour holter monitor on 05/08/23. 2. Underlying rhythm is sinus rhythm. HR range 41-169 bpm; average HR 79 bpm. HR at 41 bpm was at 03:29; HR at 169 bpm was at 14:39. 3. There are 9 premature supraventricular complexes and 3 supraventricular couplets. No supraventricular tachycardia. 4. There are 172 premature ventricular complexes. No ventricular tachycardia. 5. No sinoatrial or atrioventricular blocks. No significant pauses greater than 2 seconds. 6. Patient reports symptoms of shortness of breath, chest tightness, lightheadedness, spotty vision which demonstrate sinus rhythm, HR range 101-113 bpm.
== END 2023-05-08 13:36 | disposition home or self-care (01) ==
LOC: ANHCARD 13:37
PROVIDERS: PCP Nurse Practitioner Family; Visit Provider Nurse Practitioner Family
DX: R94.31 Abnormal electrocardiogram [ECG] [EKG] (principal)
CPT/HCPCS: 93225; 93226

== ENCOUNTER 2023-06-21 10:19 | Emergency (ER) | payer OTHER, SELFPAY ==
[2023-06-21 10:30] VITALS: BP 126/63; PULSE 93; RESP 16; TEMP 36.6; O2SAT 98
--- NOTE | 2023-06-21 10:56 | ED.URI ---
HPI - URI/Sore Throat General Chief Complaint: Upper Respiratory Infection Stated Complaint: Runny Nose/Sore Throat History of Present Illness HPI Narrative: PATIENT PRESENTS WITH NASAL CONGESTION SORE THROAT ON AND OFF. NO FEVER NO COUGH NORMALLY HEALTHY INDIVIDUAL IS NOT TAKING ANYTHING [id number] FOR SYMPTOMS Related Data Home Medications Medication Instructions Recorded Confirmed lamotrigine 100 mg tablet 100 mg PO HS 05/02/23 06/21/23 Allergies Allergy/AdvReac Type Severity Reaction Status Date / Time No Known Allergies Allergy Verified 06/21/23 10:41 Review of Systems Review of Systems: CONSTITUTIONAL: DENIES CHILLS, OR SWEATS. REPORTS FEVER AND GENERALIZED BODY ACHES EYES: DENIES VISUAL CHANGES, REDNESS, OR DISCHARGE. ENT: DENIES OTALGIA. REPORTS NASAL CONGESTION RUNNY NOSE AND SORE THROAT CARDIOVASCULAR: DENIES CHEST PAIN, PALPITATIONS, OR EDEMA. RESPIRATORY: DENIES DYSPNEA. REPORTS OCCASIONAL COUGH GASTROINTESTINAL: DENIES ABDOMINAL PAIN, NAUSEA, VOMITING, OR DIARRHEA. GENITOURINARY: DENIES DYSURIA OR HEMATURIA. SKIN: DENIES RASH OR ITCHING. MUSCULOSKELETAL: DENIES BACK PAIN, JOINT PAIN, OR MYALGIA. REPORTS GENERALIZED BODY ACHES NEUROLOGIC: DENIES HEADACHE, NUMBNESS, OR WEAKNESS. PSYCHIATRIC: DENIES ANXIETY OR DEPRESSION. FOR[facility]LY [facility], [facility] Past Medical History Medical History Asthma Bipolar 1 disorder HPV (human papilloma virus) anogenital infection and not yet delivered Family History Family History Grandparent Hypertension Cancer Asthma Diabetes mellitus Heart disease Thyroid disease Mother Asthma Father Psychiatric disorder Social History Social History Smoking packs per day: 0.5 Smoking cigarettes per day: 10.0 Years smoked: 5 Smoking pack-years: 2.50 Smoking status: Former smoker Tobacco type: cigarettes and e-cigarettes/vaping Smoking end date: 09/07/21 Alcohol intake: current Alcohol use details: 1/MONTH Substance use: current Substance use type: marijuana Living arrangements: with family Gender identity (if verbalized by the patient): Female Spiritual care concerns: No Comments AT TIME OF SIGNATURE, AGREE WITH NURSING PAST MEDICAL, SURGICAL, SOCIAL AND FAMILY HISTORY. THERE IS NO RELEVANT FAMILY HISTORY PERTINENT TO THE PRESENTING COMPLAINT Exam Narrative: THE PATIENT IS A WELL-DEVELOPED, WELL-NOURISHED IN NO ACUTE DISTRESS. SKIN: SKIN IS WARM AND DRY WITHOUT ERYTHEMA, SWELLING OR EXUDATE. THERE IS GOOD TURGOR. NO TENTING. HEAD: ATRAUMATIC. NORMOCEPHALIC. NO TEMPORAL OR SCALP TENDERNESS. EYES: MOIST AND BRIGHT. SCLERA AND CONJUNCTIVAE NORMAL. NO DISCHARGE. PERRLA. EXTRAOCULAR MOTIONS INTACT. GROSS VISUAL ACUITY INTACT. EARS: PINNA IS NORMAL SHAPE AND CONTOUR. CLEAR EXTERNAL AUDITORY CANALS. TM PEARLY VILLATORO WITH GOOD CONE OF LIGHT, NO ERYTHEMA OR SUPPURATION. BILATERAL CERUMEN NOTED NO GROSS HEARING DEFICIT. NOSE: PINK, MOIST MUCOSA WITH GOOD AIR MOVEMENT. CLEAR RHINORRHEA WITHOUT NASAL FLARING. SEPTUM MIDLINE. MOUTH: MOIST MUCOUS MEMBRANES. THROAT; MILD ERYTHEMA NOTED TO POSTERIOR OROPHARYNX WITH MODERATE POSTNASAL DRAINAGE. WITHOUT EXUDATE OR ULCERATION.. UVULA MIDLINE. NORMAL MOVEMENT OF SOFT PALATE. NECK: SUPPLE AND NONTENDER WITH FULL RANGE OF MOTION WITHOUT DISCOMFORT. NO MENINGEAL SIGNS. LUNGS: EQUAL AND BILATERAL BREATH SOUNDS WITHOUT WHEEZES, RALES OR RHONCHI. CHEST: THE CHEST WALL IS WITHOUT RETRACTIONS OR USE OF ACCESSORY MUSCLES. HEART: HAS A REGULAR RATE AND RHYTHM WITHOUT MURMUR, GALLOPS, CLICK OR RUB. ABDOMEN: SOFT, NONTENDER WITH POSITIVE ACTIVE BOWEL SOUNDS. NO REBOUND TENDERNESS. EXTREMITIES: WITHOUT CYANOSIS, CLUBBING OR EDEMA. EQUAL 2+ DISTAL PULSES AND 2 SECOND CAPILLARY REFILL NOTED. NEUROLOGIC: ALERT, ACTIVE, . THE PATIENT MOVES ALL EXTREMITIES WI
== END 2023-06-21 11:10 | disposition home or self-care (01) ==
PROVIDERS: Emergency Provider Nurse Practitioner Family; PCP Nurse Practitioner Family
DX: J06.9 Acute upper respiratory infection, unspecified (principal); F12.90 Cannabis use, unspecified, uncomplicated; Z87.891 Personal history of nicotine dependence; J45.909 Unspecified asthma, uncomplicated; F31.9 Bipolar disorder, unspecified
CPT/HCPCS: 99213; G0463

== ENCOUNTER 2024-03-12 18:07 | Emergency (ER) | payer OTHER, SELFPAY ==
[2024-03-12 18:15] VITALS: BP 129/79; PULSE 91; RESP 18; TEMP 36.4; O2SAT 100
--- NOTE | 2024-03-12 18:19 | ED.SKABFB ---
HPI - Skin/Abscess/Foreign Bdy General Chief complaint: Skin/Abscess/Foreign Body Stated complaint: Insect Bites Time Seen by Provider: 03/12/24 18:20 Source: patient, RN notes reviewed and old records reviewed Mode of arrival: ambulatory Limitations: no limitations History of Present Illness HPI narrative: 23 year old female presents to [facility] care with complaints of bug bites which are itchy and red. Patient reports bite behind right knee, left thigh and to left upper arm for the past 5-6 days. Patient reports that she has applied some BRANDAN to the bites. Patient has not taken any Benadryl or any antihistamines for itching. Patient reports no fevers. chills or body aches. MD complaint: insect bite/sting Onset (ago): day(s) (5-6 days) Severity scale (1-10): 3 Quality: pruritic Treatments prior to arrival: OTC topical medication (BRANDAN) Related Data Home Medications Medication Instructions Recorded Confirmed lamotrigine 100 mg tablet 100 mg PO HS 05/02/23 03/12/24 Allergies Allergy/AdvReac Type Severity Reaction Status Date / Time No Known Allergies Allergy Verified 03/12/24 18:18 Review of Systems Review of Systems: CONSTITUTIONAL: Denies fever, chills, or sweats. CARDIOVASCULAR: Denies chest pain, palpitations, or edema. RESPIRATORY: Denies cough or dyspnea. SKIN: Reports insect bites to right leg behind knee, to left thigh and to left arm that are itchy and red MUSCULOSKELETAL: Denies joint pain or myalgia. NEUROLOGIC: Denies headache, numbness, or weakness. All systems reviewed & are unremarkable except as noted in HPI and below PMFSH Past Medical History Medical History (Updated 03/14/24 @ 13:56 by Courtney Hardy NP) Anxiety Asthma Bipolar 1 disorder HPV (human papilloma virus) anogenital infection IUD complication had to be surgically removed Family History Family History Grandparent Hypertension Cancer Asthma Diabetes mellitus Heart disease Thyroid disease Mother Asthma Father Psychiatric disorder Social History Social History Smoking packs per day: 0.5 Smoking cigarettes per day: 10.0 Years smoked: 5 Smoking pack-years: 2.50 Smoking status: Former smoker Tobacco type: cigarettes and e-cigarettes/vaping Smoking end date: 09/07/21 Alcohol intake: current Alcohol use details: 1/MONTH Substance use: current Substance use type: marijuana Living arrangements: with family Gender identity (if verbalized by the patient): Female Spiritual care concerns: No Comments At time of signature, agree with nursing past medical, surgical, social and family history. There is no relevant family history pertinent to the presenting complaint Exam Narrative: GENERAL: Well-appearing, well-nourished, and in no acute distress. HEAD: Normocephalic, atraumatic. EYES: PERRLA, conjunctivae clear, and EOMI. ENT: Mucous membranes moist. Oropharynx without edema, erythema or lesions. NECK: Supple. No lymphadenopathy CHEST: Clear to auscultation. No respiratory distress.No cough SAO2 100% on room air HEART: Regular rate and rhythm. SKIN: Warm, dry.? Red itchy insect bites right posterior knee, left thigh, and left arm itchy no drainage noted. NEURO:? Alert and oriented x3. PSYCH: Normal mood and affect Course Course Emergency Course: Patient is aware of diagnosis, understands and agrees to treatment plan.? Anticipatory guidance given.? Patient agrees to follow-up as directed and is aware of reasons to seek care at the emergency department. Portions of this record may have been created with voice recognition software Level of Care: Express Care Visit Vital Signs Vital signs: Vital Signs Temperature 36.4 C L 03/12/24 18:15 Pulse Rate 91 03/12/24 18:15 Respiratory Rate 18 03/12/24 18:15 Blood Pressure 129/79 03/12/24
== END 2024-03-12 18:43 | disposition home or self-care (01) ==
PROVIDERS: Emergency Provider Registered Nurse; PCP Nurse Practitioner Family
DX: S80.261A Insect bite (nonvenomous), right knee, initial encounter (principal); S70.362A Insect bite (nonvenomous), left thigh, initial encounter; S40.862A Insect bite (nonvenomous) of left upper arm, initial encounter; W57.XXXA Bitten or stung by nonvenomous insect and other nonvenomous arthropods, initial encounter; Z87.891 Personal history of nicotine dependence; F31.9 Bipolar disorder, unspecified
CPT/HCPCS: 99213; G0463

== ENCOUNTER 2024-07-04 10:37 | Emergency (ER) | payer OTHER, SELFPAY ==
[2024-07-04 10:40] VITALS: BP 135/62; PULSE 109; RESP 18; TEMP 37.2; O2SAT 100
--- NOTE | 2024-07-04 11:16 | ED_ITS ---
HPI - URI/Sore Throat General Chief Complaint: Upper Respiratory Infection Stated Complaint: Congestion/Cough/Chest Congestion Time Seen by Provider: 07/04/24 11:10 Source: patient, RN notes reviewed and old records reviewed Mode of arrival: ambulatory Limitations: no limitations History of Present Illness HPI Narrative: 24 year old female who presents to [facility] care with complaints of 1 week duration of cough with wheezing at times noted, sinus congestion with stuffiness and drainage, facial pressure and intermittent headaches. Patient reports that she has history of GRACE denies any increased dyspnea, no tachypnea noted SAO2 100% on room air. Patient reports that cough has increased in the past 2 days and she feels very fatigued. MD elicited complaint: cough, rhinorrhea, nasal congestion, sinus pain and other (headache) Onset (ago): week(s) (1) Consistency: progressively worsening Severity: moderate Pain scale (0-10): 5 Able to tolerate fluids by mouth: Yes Treatments prior to arrival: acetaminophen, ibuprofen and other (Zyrtec) Related Data Home Medications Medication Instructions Recorded Confirmed lamotrigine 100 mg tablet 100 mg PO HS 05/02/23 07/04/24 metoprolol succinate 25 mg See Rx Instructions .Route .COMPLEX 07/04/24 07/04/24 tablet,extended release 24 hr sodium chloride 1,000 mg soluble 1,000 mg PO BID 07/04/24 07/04/24 tablet Allergies Allergy/AdvReac Type Severity Reaction Status Date / Time No Known Allergies Allergy Verified 07/04/24 10:52 Review of Systems Review of Systems: CONSTITUTIONAL: Reports malaise, no chills, sweats, or fever. states fatigue EYES: Denies visual changes, redness, or discharge. ENT: Reports rhinorrhea, congestion, sinus pain,no otalgia and no sore throat. CARDIOVASCULAR: Denies chest pain, palpitations, or edema. RESPIRATORY: Reports cough.? Denies acute dyspnea, reports noted some ewheezing GASTROINTESTINAL: Denies abdominal pain, nausea, vomiting, diarrhea SKIN: Denies rash or itching. MUSCULOSKELETAL: Denies myalgia. NEUROLOGIC:Rports headache. All systems reviewed & are unremarkable except as noted in HPI and below PMFSH Past Medical History Medical History Anxiety Asthma Bipolar 1 disorder HPV (human papilloma virus) anogenital infection IUD complication had to be surgically removed Grace disease Family History Family History Grandparent Hypertension Cancer Asthma Diabetes mellitus Heart disease Thyroid disease Mother Asthma Father Psychiatric disorder Social History Social History Smoking packs per day: 0.5 Smoking cigarettes per day: 10.0 Years smoked: 5 Smoking pack-years: 2.50 Smoking status: Former smoker Tobacco type: cigarettes and e-cigarettes/vaping Smoking end date: 09/07/21 Alcohol intake: current Alcohol use details: 1/MONTH Substance use: current Substance use type: marijuana Living arrangements: with family Gender identity (if verbalized by the patient): Female Spiritual care concerns: No Comments At time of signature, agree with nursing past medical, surgical, social and family history. There is no relevant family history pertinent to the presenting complaint Exam Narrative: GENERAL: Well-appearing, well-nourished, and in no acute distress. HEAD: Normocephalic EYES: PERRLA, conjunctivae clear ENT: Nares clear, turbinates edematous and erythematous, clear discharge, sinus pressure headache,. Mucous membranes moist. TM pearly molina with dull light reflex bilaterally; no tragal tenderness. Oropharynx erythematous without lesions. Tonsils not enlarged and without exudate, no drooling, no hoarseness, n o trismus, uvula midline, post nasal drainage. NECK: Supple. No lymphadenopathy CHEST: Clear to auscultation, breath sounds equal. No wheezing, rhonchi, rales, or stridor. No respiratory distress, speaks in full sentences.cough noted SAO2 100% on room air HEART: Regular rate and rhythm. No murmur heard. SKIN: Warm, dry, no rash. NEURO: Alert and oriented x3. PSYCH: Normal mood and affect Course Course Emergency Course: Patient is aware of diagnosis, understands and agrees to treatment plan.? Anticipatory guidance given.? Patient agrees to follow-up as directed and is aware of reasons to seek care at the emergency department. Portions of this record may have been created with voice recognition software Level of Care: Express Care Visit Vital Signs Vital signs: Vital Signs Temperature 37.2 C 07/04/24 10:40 Pulse Rate 109 H 07/04/24 10:40 Respiratory Rate 18 07/04/24 10:40 Blood Pressure 135/62 07/04/24 10:40 Pulse Oximetry 100 07/04/24 10:40 Oxygen Delivery Room Air 07/04/24 10:40 Temperature 37.2 C 07/04/24 10:40 Pulse Rate 109 H 07/04/24 10:40 Respiratory Rate 18 07/04/24 10:40 Blood Pressure 135/62 07/04/24 10:40 Pulse Oximetry 100 07/04/24 10:40 Oxygen Delivery Room Air 07/04/24 10:40 Reviewed MDM - URI/Sore Throat MDM Narrative Medical decision making narrative: Differential diagnosis considered: Ruiz virus, strep pharyngitis, allergic rhinitis, upper respiratory tract infection, sinusitis, rhinosinusitis, nasopharyngitis. viral pharyngitis, otitis media, otitis externa, pneumonia, bronchitis, viral cough syndrome, viral syndrome, and influenza.? Exam findings show no acute concerns or changes; patient is non-toxic appearing and is in no distress.? Patient is appropriate for outpatient treatment and follow-up. Differential Diagnosis Differential diagnosis: Likely upper respiratory infection, sinusitis, viral infection and other (cough and congestion) Medical Records Attestation: I reviewed the patient's medical records. Lab Data Attestation: I reviewed the patient's lab results. Lab results narrative: COVID antigen negative Labs: Lab Results 07/04/24 Range/Units 11:08 POC SARS CoV-2 Ag Negative (Negative) Critical Care Time Critical Care Time Critical Care Time: No Discharge Plan Discharge Clinical Impression: Bacterial sinusitis, Acute cough Patient Disposition: Home, Self-Care Condition: Stable Instructions: Antibiotic Form Additional Instructions: Increase fluids especially juices and water [id number] cough and cold medicine of your choice for your symptoms Zyrtec Claritin or Pau daily Tylenol or ibuprofen for any fever pain Steroids as directed--take with food heat to the face 20-30 minutes 4-6 times a day for pain Salt water gargles, throat lozenges or throat sprays as desired Antibiotic as directed--finished the medication If your symptoms persist, change or worsen significantly before you can contact your personal physician then please, without delay, go to the emergency department for further evaluation. Follow-up with PCP in 7-10 days or sooner if needed Follow up with PCP soon in regards to your blood pressure which is elevated above threshold for referral. Blood pressure above 120/80 may indicate pre- hypertension. 135/62 Prescriptions: New amoxicillin-pot clavulanate 875-125 mg tablet 1 tablet PO Q12H Qty: 20 0RF prednisone 20 mg tablet 20 mg PO BID Qty: 10 0RF Rx Instructions: Take a.m. and early p.m. No Action lamotrigine 100 mg tablet 100 mg PO HS mupirocin 2 % ointment 1 applic topical BID Qty: 22 0RF metoprolol succinate 25 mg tablet extended release 24 hr See Rx Instructions .ROUTE .COMPLEX Rx Instructions: as prescribed sodium chloride 1,000 mg tablet,soluble 1,000 mg PO BID Follow-up/Referrals: Tristan,Mitzy Rankin APN [Primary Care Provider] - Stand Alone Forms: Work/School Release IP Time of Disposition: 11:26 Quality [place] Coma Scale Eyes: Open Verbal: Oriented and Alert Motor: Follows Commands Lisa Coma Total Score: 15
[2024-07-04 11:23] LABS: EDCOVIDSCREEN Negative (Negative)
== END 2024-07-04 11:30 | disposition home or self-care (01) ==
PROVIDERS: Emergency Provider Registered Nurse; PCP Nurse Practitioner Family
DX: J32.9 Chronic sinusitis, unspecified (principal); R05.1 Acute cough; Z20.822 Contact with and (suspected) exposure to COVID-19; Z87.891 Personal history of nicotine dependence; F31.9 Bipolar disorder, unspecified; J45.909 Unspecified asthma, uncomplicated
CPT/HCPCS: 87426; 99213; G0463

== ENCOUNTER 2024-07-26 14:49 | Emergency (ER) | payer OTHER, SELFPAY ==
[2024-07-26 14:59] VITALS: BP 109/67; PULSE 94; RESP 16; TEMP 37.1; O2SAT 99
--- NOTE | 2024-07-26 15:32 | ED_ITS ---
HPI - Nausea/Vomiting/Diarrhea General Chief complaint: Nausea/Vomiting/Diarrhea Stated complaint: Vomiting/Diarrhea/Headache/Body Aches Time Seen by Provider: 07/26/24 15:32 Source: patient, RN notes reviewed and old records reviewed Mode of arrival: ambulatory Limitations: no limitations History of Present Illness HPI Narrative: 24-year-old female to Express Care with complaint of acute onset of emesis and diarrhea starting at 7:00 a.m. today. Patient reports vomiting 6 times since onset and to episodes of diarrhea. Patient endorsing abdominal cramping and body aches. Patient states that she took Zofran at home 1 hour prior to arrival. Patient denies urinary changes, fever, allergies, abdominal injury, pertinent medical history. patient states she is unable to keep anything down, including water. Patient resting comfortably in exam room in no acute distress. Respirations even and nonlabored. Related Data Home Medications Medication Instructions Recorded Confirmed lamotrigine 100 mg tablet 100 mg PO HS 05/02/23 07/04/24 metoprolol succinate 25 mg See Rx Instructions .Route .COMPLEX 07/04/24 07/04/24 tablet,extended release 24 hr sodium chloride 1,000 mg soluble 1,000 mg PO BID 07/04/24 07/04/24 tablet Allergies Allergy/AdvReac Type Severity Reaction Status Date / Time No Known Allergies Allergy Verified 07/26/24 17:35 Review of Systems Review of Systems: All systems reviewed & are unremarkable except as noted in HPI and below Constitutional: Constitutional: Reports as per HPI and Reports body ache(s) Eyes: Eyes: Reports no additional eye complaints ENT: Reports system reviewed and no additional complaints, except as documented Cardiovascular: Cardiovascular: Reports no additional cardiovascular complaints, Denies chest pain and Denies dyspnea Respiratory: Respiratory: Reports no additional respiratory complaints, Denies cough and Denies dyspnea Gastrointestinal: Gastrointestinal: Reports as per HPI, Reports abdominal pain, Denies melena, Denies hematochezia, Reports diarrhea, Reports nausea and Reports vomiting Musculoskeletal: Musculoskeletal: Reports no additional musculoskeletal complaints Neurologic: Reports system reviewed and no additional complaints, except as documented Psychiatric: Psychiatric: Reports no additional psychiatric complaints PMFSH Past Medical History Medical History Anxiety Asthma Bipolar 1 disorder HPV (human papilloma virus) anogenital infection IUD complication 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 Family History Family History Grandparent Hypertension Cancer Asthma Diabetes mellitus Heart disease Thyroid disease Mother Asthma Father Psychiatric disorder Social History Social History Smoking packs per day: 0.5 Smoking cigarettes per day: 10.0 Years smoked: 5 Smoking pack-years: 2.50 Smoking status: Former smoker Tobacco type: cigarettes and e-cigarettes/vaping Smoking end date: 09/07/21 Alcohol intake: current Alcohol use details: 1/MONTH Substance use: current Substance use type: marijuana Living arrangements: with family Gender identity (if verbalized by the patient): Female Spiritual care concerns: No Comments At the time of my signature, I reviewed and agree with the nursing past medical, surgical, social, and family history. There is no relevant family history pertinent to the patient complaint. Exam Const: General: cooperative, no acute distress, well developed, alert, tired appearing, uncomfortable and well nourished Nutritional Appearance: well nourished Orientation/consciousness: patient oriented x3 Limitations: no limitations HENMT: Head: normal to inspection Ears: external ears normal Face/Nose/Sinus: Normal external nose present, Normal nares present, normal fac ial exam, No erythema and No edema Face and sinus: normal facial exam, no erythema and no edema Mouth: Yes Normal oral and palatal mucosa present Eyes: General: appearance normal, both eyes and all related structures Neck: Neck: normal visual inspection, full ROM and no meningeal signs Chest: Chest palpation & inspection: normal inspection of the chest Resp: Effort & Inspection: normal respiratory effort and able to speak in complete sentences Auscultation: clear to auscultation bilaterally Cardio: Jugular venous distension: no JVD Rate: regular rate Rhythm: regular rhythm GI: Inspection: normal to inspection GI Palp: Yes abdominal tenderness, Yes Soft to palpation, Yes Guarding due to palpation present (GI) and Yes Rebound tenderness present Back/Spine/Pelvis: Cervical Spine: cervical ROM normal Skin: General skin exam: normal color, no rashes or lesions noted and turgor normal Neuro: General: patient oriented x3, gait normal, moves all extremities and no meningeal signs Speech: normal speech Gait exam (Neuro): Normal gait present Extrem: General: normal to inspection, full ROM and capillary refill normal Psych: Appearance: grossly normal and well kempt Course Course Emergency Course: Some parts of this dictation were generated by voice recognition software and may contain typographical and/or grammatical inaccuracies. Level of Care: Express Care Visit Vital Signs Vital signs: Vital Signs Temperature 37.1 C 07/26/24 14:59 Pulse Rate 94 07/26/24 14:59 Respiratory Rate 16 07/26/24 14:59 Blood Pressure 109/67 07/26/24 14:59 Pulse Oximetry 99 07/26/24 14:59 Oxygen Delivery Room Air 07/26/24 14:59 Temperature 37.1 C 07/26/24 14:59 Pulse Rate 94 07/26/24 14:59 Respiratory Rate 16 07/26/24 14:59 Blood Pressure 109/67 07/26/24 14:59 Pulse Oximetry 99 07/26/24 14:59 Oxygen Delivery Room Air 07/26/24 14:59 reviewed Transfer Transfered to: [facility] Transportation: Other ( private vehicle) Transfer rationale: higher level of care Accepting physician: Dr. Dempsey MDM - Nausea/Vomiting/Diarrhea MDM Narrative Medical decision making narrative: 24-year-old female to Express Care with complaint of acute onset of emesis and diarrhea starting at 7:00 a.m. today. Patient reports vomiting 6 times since onset and to episodes of diarrhea. Patient endorsing abdominal cramping and body aches. Patient states that she took Zofran at home 1 hour prior to arrival. Patient denies urinary changes, fever, allergies, abdominal injury, pertinent medical history. patient states she is unable to keep anything down, including water. Patient resting comfortably in exam room in no acute distress. Respirations even and nonlabored. On exam, patient appears acutely tender in all 4 quadrants, especially to right upper quadrant and right lower quadrant. Rebound tenderness present. Extensive conversation with patient regarding transfer recommendation. Patient is sitting uncomfortably in exam room nontoxic in appearance. Patient appropriate for transfer to [facility] Transfer instructions reviewed with patient, including strict orders to report directly to the emergency department. Patient offered EMS transport. Patient declined and prefers private vehicle. Patient verbalized understanding. Some parts of this dictation were generated by voice recognition software and may contain typographical and/or grammatical inaccuracies. Differential Diagnosis Differential diagnosis: Likely traveler's diarrhea, food poisoning, gastroenteritis, clostridium difficile infection, drug-induced nausea and vomiting and dehydration Discharge Plan Discharge Clinical Impression: Gastroenteritis, Abdominal pain Patient Disposition: Home, Self-Care Condition: Stable Prescriptions: No Action lamotrigine 100 mg tablet 100 mg PO HS metoprolol succinate 25 mg tablet extended release 24 hr See Rx Instructions .ROUTE .COMPLEX Rx Instructions: as prescribed sodium chloride 1,000 mg tablet,soluble 1,000 mg PO BID ondansetron 4 mg tablet,disintegrating 4 mg PO Q8H Qty: 14 0RF Follow-up/Referrals: Tristan,Mitzy Rankin APN [Primary Care Provider] -
== END 2024-07-26 16:16 | disposition home or self-care (01) ==
PROVIDERS: Emergency Provider Nurse Practitioner Family; PCP Nurse Practitioner Family
DX: K52.9 Noninfective gastroenteritis and colitis, unspecified (principal); Z87.891 Personal history of nicotine dependence
CPT/HCPCS: 99211; G0463

== ENCOUNTER 2024-07-26 17:35 | Emergency (ER) | payer OTHER, SELFPAY ==
[2024-07-26] VITALS (18 sets, daily range): BP systolic 104–128; BP diastolic 64–88; PULSE 77–131; RESP 10–26; TEMP 36.9; O2SAT 93–100
--- NOTE | ~2024-07-26 | CT_ITS ---
EXAMINATION: CT abdomen pelvis w con DATE: 07/26/2024 19:16 INDICATION: Right lower quadrant abdominal pain. TECHNIQUE: Computed tomography (CT) of the abdomen and pelvis was performed with 100 mL Omnipaque 350 intravenous contrast. Automated exposure control and iterative reconstruction technique were employe d. The dose-length product was 328.95 mGy-cm. COMPARISON: None. FINDINGS: The visualized portions of the lung bases are clear without pneumonia or pleural effusion. The heart size is normal. No pericardial effusion. The liver, gallbladder, spleen, pancreas, adrenal glands, and kidneys are normal. There are no dilated loops of bowel. The appendix is not visualized. There is a physiologic fluid in the pelvis. There are no pathologically enlarged lymph nodes. The bon es are unremarkable. IMPRESSION: 1. No etiology for the patient's symptoms. Reviewed, dictated and finalized at location A. YS DRAFTSPERSON
--- NOTE | ~2024-07-26 | US_ITS ---
EXAMINATION: US transvaginal DATE: 07/26/2024 20:53 INDICATION: Right lower quadrant abdominal pain. Ovarian torsion. TECHNIQUE: Multiple transabdominal and transvaginal sonographic images of the pelvis were obtained. COMPARISON: CT abdomen and pelvis 07/26/2024 FINDINGS: TRANSABDOMINAL ULTRASOUND: The uterus measures 8.8 x 3.5 x 4.7 cm. There is no free fluid in the pelvis. TRANSVAGINAL ULTRASOUND: The endometrial complex measures 8 mm in thickness. The right ovary measures 3.4 x 2.0 x 2.7 cm. The left ovary measures 3.7 x 2.1 x 2.9 cm. There is normal vascular flow in the ovaries. IMPRESSION: 1. Normal pelvis. Reviewed, dictated and finalized at location A. D SYSTEM OPERATOR IMPRESSION: 1. Normal pelvis.
[2024-07-26 18:12] LABS: BEDSIDEPREGUCG Negative (Negative)
--- NOTE | 2024-07-26 18:19 | ED_ITS ---
HPI - Abdominal Pain General Chief Complaint: Abdominal Pain Stated Complaint: sent from for abdominal pain Time Seen by Provider: 07/26/24 17:56 History of Present Illness HPI narrative: 24-year-old female history of Juarez presents to the emergency department from urgent care for abdominal pain. Patient states she woke up this morning at 7:00 a.m. with nausea and vomiting. She then developed pain generally throughout her abdomen. she went to urgent care in a tenderness in the right lower quadrant was sent to the ED for further evaluation. She denies prior abdominal surge amy, no fever. She does report a history of sinus tachycardia and is on metoprolol succinate 12.5 mg q.d. but is not taking this today because of vomiting and for at her dose yesterday. She also reports associated diarrhea. LMP 3 weeks ago. Denies dysuria or hematuria, vaginal discharge or concern for STDs. Related Data Home Medications Medication Instructions Recorded Confirmed lamotrigine 100 mg tablet 100 mg PO HS 05/02/23 07/04/24 metoprolol succinate 25 mg See Rx Instructions .Route .COMPLEX 07/04/24 07/04/24 tablet,extended release 24 hr sodium chloride 1,000 mg soluble 1,000 mg PO BID 07/04/24 07/04/24 tablet Allergies Allergy/AdvReac Type Severity Reaction Status Date / Time No Known Allergies Allergy Verified 07/26/24 17:35 Review of Systems Review of Systems: All systems reviewed & are unremarkable except as noted in HPI and below PMFSH Past Medical History Medical History Anxiety Asthma Bipolar 1 disorder HPV (human papilloma virus) anogenital infection IUD complication 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 Family History Family History Grandparent Hypertension Cancer Asthma Diabetes mellitus Heart disease Thyroid disease Mother Asthma Father Psychiatric disorder Social History Social History Smoking packs per day: 0.5 Smoking cigarettes per day: 10.0 Years smoked: 5 Smoking pack-years: 2.50 Smoking status: Former smoker Tobacco type: cigarettes and e-cigarettes/vaping Smoking end date: 09/07/21 Alcohol intake: current Alcohol use details: 1/MONTH Substance use: current Substance use type: marijuana Living arrangements: with family Gender identity (if verbalized by the patient): Female Spiritual care concerns: No Exam Narrative: GENERAL: Well-appearing, well-nourished, and in no acute distress. HEAD: Normocephalic, atraumatic. EYES: EOMI. ENT: Nares clear, no rhinorrhea or epistaxis. Mucous membranes moist. NECK: Supple. CHEST: Clear to auscultation. No respiratory distress. HEART: Tachycardic, regular rhythm. No murmur heard. Normal peripheral pulses. ABDOMEN: normoactive bowel sounds. Abdomen soft with tenderness in the right lower quadrant and right upper quadrant. No rebound, guarding rigidity. Negative Rovsing's, psoas and obturator's sign. No CVA tenderness EXTREMITIES: Normal range of motion. No edema. SKIN: Warm, dry, no rash. NEURO: No focal deficits. Alert and oriented x3 Course Vital Signs Vital signs: Vital Signs Temperature 98.5 F 07/26/24 17:45 Pulse Rate 120 H 07/26/24 17:45 Respiratory Rate 16 07/26/24 17:45 Blood Pressure 109/64 07/26/24 17:45 Pulse Oximetry 100 07/26/24 17:45 Oxygen Delivery Room Air 07/26/24 17:45 Temperature 98.5 F 07/26/24 17:45 Pulse Rate 91 07/26/24 18:47 Respiratory Rate 21 H 07/26/24 18:47 Blood Pressure 108/71 07/26/24 18:46 Pulse Oximetry 100 07/26/24 18:47 Oxygen Delivery Room Air 07/26/24 17:45 MDM - Abdominal Pain MDM Narrative Medical decision making narrative: 24-year-old female with history of sinus tachycardia Juarez presents to the emergency department for abdominal pain, N/ V/ D that started this morning. Vit als with tachycardia 120. She is afebrile nontoxic appearing. Exam significant for the above. CBC shows mild leukocytosis of 10.9. Chemistries are unremarkable other than mild bilirubin of 2. Remainder of LFTs are unremarkable. She has no significant tenderness to the right upper quadrant, negative Benjamin sign. Urinalysis does show ketonuria, 6-10 WBCs 3 RBCs. She denies signs of UTI, w ill wait for urine culture results. is negative. Lipase is normal. CT abdomen pelvis is unremarkable. Transvaginal ultrasound is unremarkable. Workup discussed with the patient. She states her symptoms have largely resolved after IV fluids and Toradol. She states she feels much better. Tachycardia has resolved. Suspect gastroenteritis. Will send Bradly to pharmacy. Encouraged Tylenol ibuprofen as needed for pain and discuss strict ED return precautions. She is agreeable to plan and verbalized understanding. Discharged in stable condition. Lab Data 07/26/24 18:12 07/26/24 18:12 Labs: Lab Results 07/26/24 07/26/24 Range/Units 18:11 18:12 WBC 10.9 H (4.5-10.0) K/mm3 RBC 4.74 (4.2-5.4) M/mm3 Hgb 14.4 (12.0-15.0) g/dL Hct 41.9 (37.0-47.0) % MCV 88.4 (80-100) fl MCH 30.4 (26-34) pg MCHC 34.4 (32-36) g/dl RDW 11.4 L (11.5-14.5) % Plt Count 336 (150-375) k/mm3 MPV 9.1 (7.4-10.4) fl Immature Gran % (Auto) 0.4 (0-0.5) % Neut % (Auto) 88.9 H (45.5-73.1) % Lymph % (Auto) 4.3 L (18.3-44.2) % Hancock % (Auto) 6.1 (2.6-8.5) % Eos % (Auto) 0.1 (0-4.4) % Baso % (Auto) 0.2 (0.2-1.2) % Lymph # (Auto) 0.47 L (0.9-3.2) K/mm3 Hancock # (Auto) 0.7 H (0.1-0.6) K/mm3 Eos # (Auto) 0.0 (0-0.3) K/mm3 Baso # (Auto) 0.0 (0.0-0.1) K/mm3 Abs Immat Gran (auto) 0.04 H (0.00-0.031) K/mm3 Absolute Neuts (auto) 9.7 H (1.3-6.7) K/mm3 Absolute Nucleated RBC 0.000 (0.0-0.012) K/mm3 Nucleated RBC % 0.0 (0.0-0.2) % Sodium 135 L (137-145) mmol/L Potassium 3.7 (3.4-5.0) mmol/L Chloride 102 (98-107) mmol/L Carbon Dioxide 22 (22-30) mmol/L Anion Gap 11 (4-12) mmol/L BUN 11 (7-17) mg/dL Creatinine 0.50 L (0.7-1.0) mg/dL Estim Creat Clear Calc 128 ml/min Estimated GFR > 60 (59 - ) Glucose 105 (65-110) mg/dL Calcium 9.4 (8.4-10.2) mg/dL Total Bilirubin 2.0 H (0.2-1.3) mg/dL AST 32 (14-36) U/L ALT 30 (6-35) U/L Alkaline Phosphatase 50 (38-126) U/L Total Protein 8.0 (6.3-8.2) g/dL Albumin 4.9 (3.5-5.1) g/dL Lipase 38 (23-300) U/L Urine Color Yellow (Yellow) Urine Appearance Turbid H (Clear) Urine pH 6.5 (5.0-9.0) Ur Specific Ulysses 1.018 (1.001-1.035) Urine Protein Negative (Negative) mg/dL Urine Glucose (UA) Negative (Negative) mg/dL Urine Ketones 3+ H (Negative) mg/dL Ur Blood (Man) 1+ H (Negative) Urine Nitrate Negative (Negative) Urine Bilirubin Negative (Negative) Urine Urobilinogen 1.0 (<2.0) mg/dL Leukocyte Esterase Rfl 2+ H (Negative) LYNN/UL Urine RBC 3-5 H (0-2) /hpf Urine WBC 6-10 H (0-3) /hpf Ur Squamous Epith Cells Few (Few) /hpf Urine Bacteria 1+ /hpf Urine Casts ---- POC Urine HCG, Qual Negative (Negative) Imaging Data Radiologist's impression: ITS Impressions Abdomen/Pelvis CT 07/26/24 19:23 IMPRESSION: 1. No etiology for the patient's symptoms. Transvaginal US 07/26/24 20:55 IMPRESSION: 1. Normal pelvis. Discharge Plan Discharge Clinical Impression: Gastroenteritis Patient Disposition: Home, Self-Care Condition: Stable Instructions: Antibiotic Form, Gastroenteritis (ED), Abdominal Pain (ED) Additional Instructions: You were evaluated in the emergency department for abdominal pain and nausea and vomiting. Your workup here is reassuring. Please take the Zofran as needed, eat a bland diet and drink plenty of fluids. Follow-up your primary care provider. Return to the emergency department if you develop worsening or changing symptoms. Prescriptions: New ondansetron 4 mg tablet,disintegrating 4 mg PO Q8H Qty: 14 0RF No Action lamotrigine 100 mg tablet 100 mg PO HS metoprolol succinate 25 mg tablet extended release 24 hr See Rx Instructions .ROUTE .COMPLEX Rx Instructions: as prescribed sodium chloride 1,000 mg tablet,soluble 1,000 mg PO BID Follow-up/Referrals: Tristan,Mitzy Rankin APN [Primary Care Provider] -
[2024-07-26] MEDS: SODIUM CHLORIDE 0.9% IV 1,000 ML 999 ML IV CONT (18:25)
[2024-07-26] MEDS: KETOROLAC 15 MG/ML VIAL (*BKC) IV PUSH (18:25)
[2024-07-26 18:26] LABS: Basophils Percent Auto 0.2 % (0.2-1.2); Eosinophils Percent Auto 0.1 % (0-4.4); Hematocrit 41.9 % (37.0-47.0); Hemoglobin 14.4 g/dL (12.0-15.0); Immature Granulocyte Absolute 0.04 K/mm3 (0.00-0.031); Immature Granulocyte Percent A 0.4 % (0-0.5); Lymphocytes Absolute Auto 0.47 K/mm3 (0.9-3.2); Lymphocytes Percent Auto 4.3 % (18.3-44.2); Mean Corpuscular HGB Conc 34.4 g/dl (32-36); Mean Corpuscular Hemoglobin 30.4 pg (26-34); Mean Corpuscular Volume 88.4 fl (80-100); Mean Platelet Volume 9.1 fl (7.4-10.4); Monocytes Absolute Auto 0.7 K/mm3 (0.1-0.6); Monocytes Percent Auto 6.1 % (2.6-8.5); Neutrophils Absolute Auto 9.7 K/mm3 (1.3-6.7); Neutrophils Percent Auto 88.9 % (45.5-73.1); Platelet Count Result 336 k/mm3 (150-375); Red Blood Count 4.74 M/mm3 (4.2-5.4); Red Cell Distribution Width 11.4 % (11.5-14.5); White Blood Count 10.9 K/mm3 (4.5-10.0)
[2024-07-26] MEDS: METOPROLOL SUCCINATE EXT REL 12.5 MG TABCR PO (18:33)
[2024-07-26 18:36] LABS: Alanine Aminotransferase 30 U/L (6-35); Albumin Level 4.9 g/dL (3.5-5.1); Alkaline Phosphatase 50 U/L (38-126); Anion Gap 11 mmol/L (4-12); Aspartate Amino Transferase 32 U/L (14-36); Blood Urea Nitrogen 11 mg/dL (7-17); Calcium 9.4 mg/dL (8.4-10.2); Carbon Dioxide 22 mmol/L (22-30); Chloride 102 mmol/L (98-107); Estimated CRCL calculation 128 ml/min; Estimated Glomerular Filt Rate > 60; Glucose 105 mg/dL (65-110); Lipase 38 U/L (23-300); Potassium 3.7 mmol/L (3.4-5.0); Sodium 135 mmol/L (137-145)
[2024-07-26 18:52] LABS: Add Urine Microscopic? YES; Appearance Urine Turbid (Clear); Bilirubin Urine Negative (Negative); Blood Urine 1+ (Negative); Color Urine Yellow (Yellow); Glucose Urine UA Negative (Negative); Ketones Urine 3+ mg/dL (Negative); Leukocyte Esterase Ur 2+ LEU/UL (Negative); Nitrate Urine Negative (Negative); Protein Urine Negative (Negative); Specific Grav Ur 1.018 (1.001-1.035); pH Urine 6.5 (5.0-9.0)
[2024-07-26 18:54] LABS: Bacteria Urine 1+ /hpf; Squamous Epithelial Cell Urine Few /hpf (Few)
== END 2024-07-26 21:46 | disposition home or self-care (01) ==
PROVIDERS: Emergency Provider Physician Assistant; PCP Nurse Practitioner Family
DX: K52.9 Noninfective gastroenteritis and colitis, unspecified (principal); J45.909 Unspecified asthma, uncomplicated; A18.01 Tuberculosis of spine; Z87.891 Personal history of nicotine dependence
CPT/HCPCS: 36415; 74177; 76830; 80053; 81001; 81025; 83690; 85025; 87086; 96361; 96374; 99284; A9270; J1885; J7030; Q9967

== ENCOUNTER 2024-09-08 11:41 | Outpatient (CLI) | payer OTHER, SELFPAY ==
--- NOTE | ~2024-09-08 | XR_ITS ---
HISTORY: NON TRAUMA BUMP To MIDDLE OF FOREARM WITH PAIN COMPARISON: None TECHNIQUE: 2 views of the left forearm were performed FINDINGS: No acute or subacute fracture. Joint spaces are preserved and alignment is normal. Soft tissues are unremarkable without foreign body or significant calcification. Age-appropriate mineralization. IMPRESSION: No acute or subacute fracture, as detailed above Reviewed, dictated and finalized at location A. [employer]
== END 2024-09-08 11:42 | disposition home or self-care (01) ==
PROVIDERS: PCP Nurse Practitioner Family; Visit Provider Nurse Practitioner Family
DX: M79.632 Pain in left forearm (principal)
CPT/HCPCS: 73090

== ENCOUNTER 2024-10-05 10:44 | Outpatient (CLI) | payer OTHER, SELFPAY ==
--- NOTE | ~2024-10-05 | US_ITS ---
EXAMINATION: US soft tissue UE LT DATE: 10/05/2024 11:25 INDICATION: Nontraumatic painful bump at the mid left forearm TECHNIQUE: Multiple ultrasound grayscale images of the region of concern at the left forearm were obt ained. COMPARISON: None. FINDINGS: At the region of concern is a small lenticular region of decreased echogenicity in the subcutaneous f at which measures 4.5 x 4 x 2 mm. There is a linear echogenic internal septation which extends throug hout the hypoechoic region but which appears contiguous with septations extending throughout the surr ounding fat without evident mass effect or architectural distortion. Vascular flow seen on color Dopp ler in the soft tissues surrounding the lesion. The underlying musculature and surface of the bone. U nremarkable. No other abnormal masses or fluid collections identified. IMPRESSION: 1. Indeterminate 4.5 x 4 x 2 mm hypoechoic lesion in the subcutaneous fat at the region of concern. Would favor focal edema/inflammation of indeterminate etiology over a lymph node, lipoma or other araceli id neoplasm. Reviewed, dictated and finalized at location B. H UP PAINTER IMPRESSION: 1. Indeterminate 4.5 x 4 x 2 mm hypoechoic lesion in the subcutaneous fat at t he region of concern. Would favor focal edema/inflammation of indeterminate letty ology over a lymph node, lipoma or other solid neoplasm.
--- OUTSIDE RECORDS SUMMARY | 2024-10-05 11:52 | XMS_ITS | Referral Summary ---
Author Organization [facility] Address [address] [place] [address] Care Team Providers [employer] Name Role Phone Mitzy Hudson NP Primary Care Provider [phone] Encounters Date Type Department Care Team Description 09/29/2024 9:00 AM FEDERAL AID COORDINATOR - 09/29/2024 11:59 PM FEDERAL AID COORDINATOR Hospital Encounter [facility] [address] [place] [address] Obstructive sleep apnea Discharge Disposition: Discharge to home or self care 09/23/2024 Telephone [facility] [address] [place] [address] [address] [place] [phone] Mel Chi MA 09/20/2024 2:20 PM FEDERAL AID COORDINATOR Lab [address] Restless leg syndrome; Iron deficiency 09/20/2024 1:15 PM FEDERAL AID COORDINATOR Office Visit [facility] Sleep Medicine at [address] [place] [phone] Naheed Mcleod MD Obstructive sleep apnea (Primary Dx); Pulmonary hypertension (HCC); Hypersomnia; Overweight; Restless leg syndrome; Iron deficiency 08/29/2024 3:15 PM FEDERAL AID COORDINATOR Therapy [facility] [place] [address] Darinel Davenport PT Low back pain, unspecified back pain laterality, unspecified chronicity, unspecified whether sciatica present (Primary Dx) 07/27/2024 5:45 PM FEDERAL AID COORDINATOR Therapy [facility] [place] [address] Marcella Cruz, PT Low back pain, unspecified back pain laterality, unspecified chronicity, unspecified whether sciatica present (Primary Dx) 07/22/2024 9:00 AM FEDERAL AID COORDINATOR Therapy [facility] [place] [address] Marcella Cruz, PT Low back pain, unspecified back pain laterality, unspecified chronicity, unspecified whether sciatica present (Primary Dx) 07/13/2024 9:15 AM FEDERAL AID COORDINATOR Therapy [facility] [place] [address] Marcella Cruz, PT Low back pain, unspecified back pain laterality, unspecified chronicity, unspecified whether sciatica present (Primary Dx) 07/12/2024 12:47 PM FEDERAL AID COORDINATOR - 07/12/2024 11:59 PM FEDERAL AID COORDINATOR Hospital Encounter [facility] [address] [place] [address] Nontoxic goiter, unspecified Discharge Disposition: Discharge to home or self care 07/11/2024 9:30 AM [facility] [place] [address] Marcella Cruz, PT Low back pain, unspecified back pain laterality, unspecified chronicity, unspecified whether sciatica present (Primary Dx) from Last 3 Months Allergies No known active allergies Medications lamoTRIgine (LaMICtal) 100 mg tablet Take 1 tablet (100 mg total) by mouth daily Active metoprolol XL (TOPROL-XL) 25 mg extended release tablet Take 1 tablet (25 mg total) by mouth daily 30 tablet 11 Active Additional Information Patient taking differently: 12.5 mgoral Daily, Reported on 09/20/2024 Active Problems Problem Noted Date Diagnosed Date Obstructive sleep apnea 10/04/2024 POTS (postural orthostatic tachycardia syndrome) 07/02/2023 Syncope and collapse 05/26/2023 Orthostatic dizziness 05/26/2023 Chest tightness 05/26/2023 Depressive disorder 02/16/2021 Asthma 11/16/2019 Anxiety 11/16/2019 Social History Tobacco Use Types Packs/Day Years Used Date Smoking Tobacco: Former Cigarettes Smokeless Tobacco: Never Tobacco Cessation:Counseling Given: Not Answered Comments:09/09 ppd Comments No Sex and Gender Information Value Date Recorded Sex Assigned at Not on file Legal Sex Female 7:55 AM FEDERAL AID COORDINATOR Gender Identity Not on file Sexual Orientation Not on file Last Filed Vital Signs Vital Sign Reading Time Taken Comments Blood Pressure 116/72 09/20/2024 1:29 PM FEDERAL AID COORDINATOR Pulse 90 09/20/2024 1:29 PM FEDERAL AID COORDINATOR Temperature 36.4 ??C (97.5 ??F) 06/18/2022 2:17 PM CD T Respiratory Rate 18 06/29/2023 2:27 PM CDT Oxygen Saturation 98% 09/20/2024 1:29 PM FEDERAL AID COORDINATOR Inhaled Oxygen Concentration - - Weight 68.5 kg (151 lb) 09/20/2024 1:29 PM FEDERAL AID COORDINATOR Height 165.1 cm (5' 5 ) 09/20/2024 1:29 PM FEDERAL AID COORDINATOR Body Mass Index 25.13 09/20/2024 1:29 PM FEDERAL AID COORDINATOR Plan of Treatment Not on file Procedures Procedure Name Priority Date/Time Associated Diagnosis Comments PORTABLE/HOME SLEEP STUDY Routine 10/03/2024 Obstructive sleep apnea FERRITIN Routine 09/20/2024 2:19 PM FEDERAL AID COORDINATOR Restless leg syndrome Iron deficiency THYROID Schedule Routine, Read Routine (OP Routine) 07/12/2024 1:11 PM FEDERAL AID COORDINATOR Nontoxic goiter, unspecified from Last 3 Months Results * Portable/Home Sleep Study (10/03/2024) Nathalias Naheed Mcleod MD - 10/03/2024 HOME SLEEP APNEA TEST HISTORY: nAna Dang is a 24 y.o. female who presents for Home sleep apnea test. (HSAT). Reason for sleep study: Snoring, excessive daytime sleepiness, pulmonary hypertension [place] Sleepiness Score: 4 Weight: 151 lbs BMI: 25.13 ?? PROCEDURE: This is a single night diagnostic study. This Home Sleep apnea Test (HSAT) utilized an unattended FDA approved [employer] apnea link home air portable monitoring device investigating for obstructive sleep apnea. The patient was provided instructions of the device and application by the registered generation engineering technologist at the [facility]. This test was performed without a cytotechnologist supervisor in attendance. In this study, the following parameters were monitored: Kait-nasal airflow, snoring, chest respiratory effort, abdominal respiratory effort, body position, movement, oxygen saturation, and heart rate. Respiratory events are scored according to the criteria from The [place] Academy [employer] (AASM) Manual for the scoring of sleep and associated events - version 2.6. FINDINGS: The recorded bed time starts at 11:55 pm. The total recording duration is 7:23 hours. The respiratory events (RE) included 1 apneas and 1 hypopneas. The total Respiratory event index (SARI) was 0.5 per hour. Obstructive apnea index was 0.2, central apnea index was 0.0, mixed apnea index was 0.0. Lowest SpO2 was 88 % and time spent < 88% was 0:00 hours. Oxygen desaturation index was 0.4. Patient spent 1:21 hours in supine and 2:37 hours in non-supine position. Average heart rate was 65/min, minimum heart rate was 48/min, and maximum heart rate was 114/min. INTERPRETATION: This is an adequate quality Home Sleep apnea Test. (HSAT) 1. This home sleep apnea study (HSAT) is negative for obstructive sleep apnea. RECOMMENDATIONS: 1. If there is strong clinical suspicion of sleep apnea, a repeat home sleep apnea test or in-lab attended sleep study should be considered. Limitations of the study: 1. A sleep EEG was not recorded; therefore, the actual amount of time spent in sleep, stages of sleep and respiratory events associated with arousals cannot be determined by this study. 2. All indexes are computed against monitoring time, not total sleep time. For this reason, the degree of severity may be underestimated * Please note: The severity of the sleep apnea may vary from night to night depending on body position during sleep, REM sleep and sleep efficiency. These factors should be taken into consideration. Naheed Mcleod MD [facility] Narrative Naheed Mcleod MD - 10/03/2024 Ocst is ready for review us Naheed Mcleod MD SLEEP CENTER ORDERABLES Final Re sult * Ferritin (09/20/2024 2:19 PM FEDERAL AID COORDINATOR) Ferritin 50 15 - 150 ng/mL Blood 09/20/2024 2:19 PM FEDERAL AID COORDINATOR 09/20/2024 4:08 PM FEDERAL AID COORDINATOR us Naheed Mcleod MD LAB BLOOD ORDERABLES Final Resul t HUSAM JONES (WITHAMS) [facility] Department [place] [address] * US Thyroid (07/12/2024 1:11 PM FEDERAL AID COORDINATOR) Anatomical Region Laterality Modality Head and Neck N/A Ultrasound 07/15/2024 1:19 PM FEDERAL AID COORDINATOR Narrative 07/15/2024 1:20 PM FEDERAL AID COORDINATOR EXAM DESCRIPTION: ?? US THYROID REASON FOR STUDY: ?? Nontoxic goiter. ??Per the patient, clinician thought thyroid looked enlarged on exam. TECHNIQUE: Ultrasound of the thyroid was performed with grayscale and color doppler. COMPARISON: None FINDINGS: RIGHT: The right thyroid lobe measures 6.1 x 1.7 x 1.6 cm. ??The parenchyma is homogeneous, without discrete nodule. LEFT: The left thyroid lobe measures ??5.8 x 1.7 x 1.8 ??cm. ??The parenchyma is homogeneous, without discrete nodule. ISTHMUS: The isthmus measures ??4 mm ??in AP dimension. ??The isthmus is normal in echotexture. VASCULARITY: ??Normal. OTHER: ??No other significant finding. IMPRESSION: 1. ?? Thyroid lobes symmetric in size. ??No discrete nodularity. REFERENCE: According to the ACR Thyroid Imaging, Reporting and Data System (TI-RADS): White Paper of the ACR TI-RADS Committee Jan, 2017 recommendations regarding the management of thyroid nodules are as follows: 1. ?? TI-RADS 1: Risk of malignancy <2%, no FNA or follow up required. 2. ?? TI-RADS 2: Risk of malignancy <2%, no FNA or follow up required. 3. ?? TI-RADS 3: Risk of malignancy 2%-5%. Nodules 1.5 cm or greater follow up at 1, 3 and 5 years recommended, for nodules 2.5 cm or greater FNA recommended. 4. ?? TI-RADS 4: Risk of malignancy 5%-20% Nodules 1.0 cm or greater follow up at 1, 2, 3 and 5 years recommended, for nodules 1.5 cm or greater FNA recommended 5. ?? TI-RADS 5: Risk of malignancy >20%. Nodules 0.5 cm or greater annual follow up for 5 years recommended, for nodules 1.0 cm or greater FNA recommended. The ACT TI-RADS committee recommends targeting no more than two nodules for FNA. ??If three or more nodules meet criteria for FNA, the two with the most suspicious appearance based on ACR TI-RADS points should be sampled. THIS IS AN ELECTRONICALLY VERIFIED FINAL REPORT 07/15/2024 1:20 PM - Electronically signed by ??Ninfa Dumas M.D. TW: RAYMOND D: ??07/15/2024 1:20 PM T: ??07/15/2024 1:20 PM Report ID: [id number] Reading Location: ??[id number] Procedure Note Ninfa Dumas MD - 07/15/2024 EXAM DESCRIPTION: US THYROID REASON FOR STUDY: Nontoxic goiter. Per the patient, clinician thought thyroid looked enlarged on exam. TECHNIQUE: Ultrasound of the thyroid was performed with grayscale andcolor doppler. COMPARISON: None FINDINGS: RIGHT: The right thyroid lobe measures 6.1 x 1.7 x 1.6 cm. The parenchymais homogeneous, without discrete nodule. LEFT: The left thyroid lobe measures 5.8 x 1.7 x 1.8 cm. The parenchymais homogeneous, without discrete nodule. ISTHMUS: The isthmus measures 4 mm in AP dimension. The isthmus isnormal in echotexture. VASCULARITY: Normal. OTHER: No other significant finding. IMPRESSION: 1. Thyroid lobes symmetric in size. No discrete nodularity. REFERENCE: According to the ACR Thyroid Imaging, Reporting and Data System (TI-RADS): White Paper of the ACR TI-RADS Committee Jan, 2017recommendations regarding the management of thyroid nodules are as follows: 1. TI-RADS 1: Risk of malignancy <2%, no FNA or follow up required. 2. TI-RADS 2: Risk of malignancy <2%, no FNA or follow up required. 3. TI-RADS 3: Risk of malignancy 2%-5%. Nodules 1.5 cm or greater followup at 1, 3 and 5 years recommended, for nodules 2.5 cm or greater FNArecommended. 4. TI-RADS 4: Risk of malignancy 5%-20% Nodules 1.0 cm or greater followup at 1, 2, 3 and 5 years recommended, for nodules 1.5 cm or greater FNA recommended 5. TI-RADS 5: Risk of malignancy >20%. Nodules 0.5 cm or greater annual follow up for 5 years recommended, for nodules 1.0 cm or greater FNA recommended. The ACT TI-RADS committee recommends targeting no more than two nodulesfor FNA. If three or more nodules meet criteria for FNA, the two with themost suspicious appearance based on ACR TI-RADS points should be sampled. THIS IS AN ELECTRONICALLY VERIFIED FINAL REPORT 07/15/2024 1:20 PM - Electronically signed by Ninfa Dumas M.D. TW: RAYMOND Report ID: [id number] Reading Location: [place] [address] us Mitzy Catherine Hudson PRUNE WASHER IMG US PROCEDURES Final Resu lt from Last [address] [place] [address] [place] [address] [facility] Care Teams Retail [employer] Restaurant Relationship Specialty Start Date End Date Tristan, Mitzy Alexander NP [address] [place] [address] [place] [id number] PCP - General Nurse Practitioner 06/23/22
--- OUTSIDE RECORDS SUMMARY | 2024-10-05 11:52 | XMS_ITS | Clinical Summary ---
Author Organization [facility] Address [address] [place] [address] Phone Care Team Providers Care Domestic Travel Consultant Name Role Phone Provider, None Primary Care Provider Unavailabl e Immunizations Immunization Administration Dates Next Due DTAP VACCINE 06/01/2003, 0,1998,11/05,1998 Hepatitis A Vaccine, Pediatric/adolescent, 2 Dose Schedule 07/14/2005 Hepatitis A, Pediatric, Unsp ecified Formulation 04/14/2006 Hepatitis B Vaccine, Pediatric/adolescent 1998,1998,1998 Hib Vaccine,unspecified Formulation 09/26/1999,0 1998,1998 Human Papillomavirus Vaccine (HPV), quadrivalent 01/16/2010,09/17/2009,07/05/2009 Inactivated Polio Vaccine 06/01/2003,,1998,08/27 Influenza Vaccine 10/14/2012 Influenza Vaccine Nasal 08/15/2010,07/05/2009 Influenza Vaccine, Quadrivalent, PF 06/08/2013 Influenza Vaccine,unspecifie d Formulation 07/25/2008,06/12/2006,07/14/2005,07/18,10/26/2002 Influenza, Seasonal, Injecta ble, Undefined 06/10/2011 MMR Vaccine 10/26/2002,07/02/1999 Meningococcal MCV4, Unspecif ied Formulation 04/24/2010 TDAP Vaccine 04/24/2010 Varicella Vaccine Live 12/28/2006,07/02/1999 Social History Tobacco Use Types Packs/Day Years Used Date Smoking Tobacco: Never Assessed Comments Unknown Sex and Gender Information Value Date Recorded Sex Assigned at Not on file Legal Sex Female 11:15 PM CDT Gender Identity Not on file Sexual Orientation Not on file Plan of Treatment Health Maintenance Due Date Last Done Comments Hepatitis C Virus (HCV) Screening 1998 Pap Smear 2019 DTaP/Tdap/Td Immunization (7 - Td or Tdap) 04/24/2020 04/24/2010, 06/01/2003, 09/26/1999, Additional history exists Influenza Immunization (#1) 05/08/202410/2012, 10/14/2012, 08/15/2010, Additional history exists SARS-COV-2 Immunization ( season) 2024 09/25/2021 Respiratory Syncytial Virus (RSV) Immunization (Adult) (1 - 1-dose 75+ series) 2073 Hepatitis B Immunization Completed 999, 1998, 1998 Human Papillomavirus (HPV) Immunization Completed 01/16/2010, 09/17/2009, 07/05/2009 Meningococcal Immunization (ACWY) Aged Out 04/24/2010 No longer eligible based on patient's age to complete this topic Pneumococcal Immunization Combined Aged Out No longer eligible based on patient's age to complete this topic Rotavirus Immunization Aged Out No lo nger eligible based on patient's age to complete this topic Insurance MEDICAID [employer] [facility] [employer] Care Teams Domestic Travel Consultant Relationship Specialty Start Date End Date Provider, None [place] PCP - General 08/08/18
--- OUTSIDE RECORDS SUMMARY | 2024-10-05 11:52 | XMS_ITS | Referral Summary ---
Author Organization [facility] Address [address] [place] [address] Care Team Providers Care Director Of Development Name Role Phone Mitzy Hudson KATY-GUNCOTTON PACKER Primary Care Provider [phone] Source Comments [facility],non-owned Affiliates and Associated Physician Practices is amultiple site organization consisting of ambulatory clinics and hospital sitesin [place], [place], [place] and [place]. This disclosure is being madepursuant to the Care Everywhere program and may not contain all information available regarding this patient. Last updated 18.[facility] Encounters Date Type Department Care Team Description 07/27/2024 Telephone [facility] [place] [address] Tatiana Aguilar DO 07/18/2024 Travel 07/18/2024 3:00 PM POWDER CARRIER Office Visit [facility] [address] [place] [phone] Tatiana Aguilar DO Chronic urticaria (Primary Dx); Seasonal allergic rhinitis due to pollen; Mild intermittent asthma without complication (HCC); Abdominal bloating; Rhinorrhea 07/05/2024 Travel from Last 3 Months Allergies Active Allergy Reactions Criticality Noted Date Comments Peanut-Derived Anaphylaxis High 07/18/2024 Medications * Be aware that medications may not be up to date on this document. Alwaysverify current medications with the patient. Medication Sig Dispensed Refills Start Date End Date Status ondansetron (ZOFRAN) 8 MG tabletIndications: Nausea and/or Vomiting in Take 8 mg by mouth every 6 hours as needed for Nausea/Vomiting Reasons: Nausea and Vomiting in Active Vit-Fe Fumarate-FA ( VITAMIN) 28-0.8 MG tabletIndications: Take 1 tablet by mouth once daily Reasons: Active acetaminophen (TYLENOL) 500 MG tablet Take 500 mg by mouth every 4 hours as needed for Pain Maximum allowable Acetaminophen amount = 4 Grams (4000 mg) / 24 hours. Active lamoTRIgine (LaMICtal) 100 MG tablet Take 1 (one) tablet by mouth once daily Active metoprolol succinate XL 24hr (Toprol XL) 25 MG tablet Take 0.5 (one-half) tablet by mouth once daily 06/29/2023 Active fexofenadine (Pau) 180 MG tabletIndications: Chronic urticaria Take 1 (one) tablet by mouth once daily 90 tablet 3 07/18/2024 Active fluticasone propionate (Flonase) 50 MCG/ACT nasal sprayIndications:S easonal allergic rhinitis due to pollen,Rhinorrhea Luning 2 (two) sprays into each nostril once daily 16 g 07/18/2024 Active Active Problems Problem Noted Date Diagnosed Date Supervision of normal first , antepartu m 11/16/2019 Echogenic intracardiac focus of fetus on ultrasound 11/16/2019 Overview (11/16/2019): Noted in LV on outside scan Encounter for ultrasound 11/16/2019 Poor growth affecting management of mother, antepartum 11/16/2019 Anxiety 11/16/2019 Asthma 11/16/2019 Bipolar depression 11/16/2019 Social History Tobacco Use Types Packs/Day Years Used Date Smoking Tobacco: Former Cigarettes Q uit: 09/18/2019 Smokeless Tobacco: Never Alcohol Use Standard Drinks/Week Comments Not Currently 0 (1 standard drink = 0.6 oz pur e alcohol) Sex and Gender Information Value Date Recorded Sex Assigned at Not on file Gender Identity Not on file Sexual Orientation Not on file Last Filed Vital Signs Vital Sign Reading Time Taken Comments Blood Pressure 111/75 07/18/2024 3:13 PM POWDER CARRIER Pulse 67 07/18/2024 3:13 PM POWDER CARRIER Temperature 37 ??C (98.6 ??F) 07/18/2024 3:13 PM POWDER CARRIER Respiratory Rate 18 07/18/2024 3:13 PM POWDER CARRIER Oxygen Saturation 98% 07/18/2024 3:13 PM POWDER CARRIER Inhaled Oxygen Concentration - - Weight 67.6 kg (149 lb) 07/18/2024 3:13 PM POWDER CARRIER Height 165.1 cm (5' 5 ) 07/18/2024 3:13 PM POWDER CARRIER Body Mass Index 24.79 07/18/2024 3:13 PM POWDER CARRIER Plan of Treatment Not on file Care Teams Director Of Development Relationship Specialty Start Date End Date Mitzy Hudson APRN-PALOMO [address] [place] [address] PCP - General Nurse Practitioner Family 07/18/24
--- OUTSIDE RECORDS SUMMARY | 2024-10-05 11:52 | XMS_ITS | Patient Health Summary ---
Author Organization [facility] Address [address] [facility] [place] [address] Care Team Providers Care Art Model Name Role Phone Hudson Mitzy BURNS-PIECE PRESSER Primary Care Provider [phone] Note from [facility],non-owned Affiliates and Associated Physician Practices is amultiple site organization consisting of ambulatory clinics and hospital sitesin [place], [place], [place] and [place]. This disclosure is being madepursuant to the Care Everywhere program and may not contain all information available regarding this patient. Last updated 18.[facility] Allergies * Peanut-Derived(Anaphylaxis) -High Criticality Medications * Be aware that medications may not be up to date on this document. Alwaysverify current medications with the patient. * ondansetron (ZOFRAN) 8 MG tablet Take 8 mg by mouth every 6 hours as needed for Nausea/Vomiting Reasons: Nausea and Vomiting in * Vit-Fe Fumarate-FA ( VITAMIN) 28-0.8 MG tablet Take 1 tablet by mouth once daily Reasons: * acetaminophen (TYLENOL) 500 MG tablet Take 500 mg by mouth every 4 hours as needed for Pain Maximum allowable Acetaminophen amount = 4 Grams (4000 mg) / 24 hours. * lamoTRIgine (LaMICtal) 100 MG tablet Take 1 (one) tablet by mouth once daily * metoprolol succinate XL 24hr (Toprol XL) 25 MG tablet(Started 06/29/2023) Take 0.5 (one-half) tablet by mouth once daily * fexofenadine (Pau) 180 MG tablet(Started 07/18/2024) Take 1 (one) tablet by mouth once daily 3 refills by 07/18/2025 * fluticasone propionate (Flonase) 50 MCG/ACT nasal spray(Started 07/18/2024) [place] 2 (two) sprays into each nostril once daily Active Problems Problem Noted Date Diagnosed Date Supervision of normal first , antepartu m 11/16/2019 Echogenic intracardiac focus of fetus on ultrasound 11/16/2019 Encounter for ultrasound 11/16/2019 Poor growth affecting [...] Comments Blood Pressure 111/75 07/18/2024 3:13 PM DEALER SALES REP Pulse 67 07/18/2024 3:13 PM DEALER SALES REP Temperature 37 ??C (98.6 ??F) 07/18/2024 3:13 PM DEALER SALES REP Respiratory Rate 18 07/18/2024 3:13 PM DEALER SALES REP Oxygen Saturation 98% 07/18/2024 3:13 PM DEALER SALES REP Inhaled Oxygen Concentration - - Weight 67.6 kg (149 lb) 07/18/2024 3:13 PM DEALER SALES REP Height 165.1 cm (5' 5 ) 07/18/2024 3:13 PM DEALER SALES REP Body Mass Index 24.79 07/18/2024 3:13 PM DEALER SALES REP Procedures * ECHO CONSULT - (Performed 12/23/2019) Performed for Family history of congenital heart defect, Supervision of normal first , antepartum (HCC), Echogenic intracardiac focus of fetus on ultrasound, Intrauterine growth restriction (IUGR) affecting care of mother, unspecified trimester, single or unspecified fetus * SONOGRAM - COMPLETE(Performed 11/17/2019) Performed for Supervision of normal first , antepartum (HCC), Echogenic intracardiac focusof fetus on ultrasound, Encounter for ultrasound (HCC), Intrauterine growth restriction (IUGR) affecting care of mother, unspecified trimester, single or unspecified fetus, Anxiety, Asthma, unspecified asthma severity, unspecified whether complicated, unspecified whether persistent (HCC), Bipolar depression (HCC) Results * ECHO CONSULT - (12/23/2019 11:29 AM CDT) 12/23/2019 11:2 9 AM CDT Narrative [facility] - 12/23/2019 6:28 PM CDT ?[facility] ? Echo Pat.Name: ??ANNA DANG ? Pat.ID: ?[id number] ? St.Date: ?? 12/23/2019 ? Refer.MD: ??Noman Maria ? Exam Time: 11:29:00 AM ? Study Type: Echo ? Height: ?165cm ? Weight: ?70.8kg ? BSA: ? 1.78 m2 ?Age: ??2000,19Y ? Sex: ? FEMALE ?Sonogrphr: Olga Cortes RDCS ? Pat. Stat.:Outpatient ? CPT - 4: ?90014, 37876, [id number], [id number] Reason for Study: Suspected Cardiac Abnormality History / Clinical: Suspected cardiac anomaly ??137 ??01/20/2020 Procedures: ?? 2D Complete, Doppler Complete, Color Flow Visit ID: ??[id number] ? SUMMARY: Study Data: GA: 36/0 weeks. ??JUANITA: 01/20/2020 . ??: 1. ??Para: 0. ?? Type: Chapman. ?? Lie: Vertex. 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 Findings: Anatomic Relationships: ??Left sided cardiac apex (levocardia). ??There is normal visceral-cardiac situs, and normal segmental cardiac anatomical relationship. Systemic Veins: ??There is normal systemic venous return. Pulmonary Veins: ??The visualized pulmonary veins drain normally to the left atrium. Right Atrium: ??The right atrial size is normal. Left Atrium: ??The left atrial size is normal. Atrial Septum: ??Patent foramen ovale is seen with the foramen flap bowing from right to left and color flow is right to left. Tricuspid Valve: ??The tricuspid valve is structurally normal. ??The inflow pattern is normal. ??Tricuspid velocity is within the normal range. There is no regurgitation present. Mitral Valve: ??The mitral valve is structurally normal. ??The inflow pattern is normal. ??Mitral velocity is within the normal range. There is no regurgitation present. Right Ventricle: ??The cavity size is normal. ??The wall thickness is normal. ??The systolic function is normal. RV Outflow Tract: ??The outflow tract is normal. Left Ventricle: ??The cavity size is normal. ??The wall thickness is normal. ??The systolic function is normal. LV Outflow Tract: ??The outflow tract is normal. Ventricular Septum: ??There is tiny midmuscular defect with bidirectional shunting. Pulmonary Valve: ??Leaflets exhibited normal mobility. The transpulmonic velocity is within the normal range. ??There is no regurgitation present. Aortic Valve: ??Leaflets exhibited normal mobility. The transaortic velocity is within the normal range. ??There is no regurgitation present. Pulmonary Artery: ??The MPA is normal with confluent branch pulmonary arteries. Aorta: ?? aortic arch visualized and is without obstruction by 2D, color flow and Doppler. Ductus Arteriosus: ??The antegrade flow velocity and pattern in the ductal arch is normal. A normal ductus arteriosus is appreciated. Hydrops Assessment: ??No pericardial effusion. ??No evidence of ascites or pleural effusion. Rhythm: ??The rhythm is normal. ??There is 1:1 AV conduction. Dopplers: ??Flow in the ductus venosus is not well visualized. The umbilical vein flow pattern is normal. ??The umbilical artery flow pattern is normal. MEASUREMENTS: ?DOPPLER Pulmonic Valve ?? PV pkPG ? 2.01 mmHg ?PV pkVel ?0.71 m/s HR ?? HR ? 142 bpm ? Signed 12/23/2019 06:28 PM Urvashi Fox MD Procedure Note Urvashi Fox MD - 12/26/2019 [facility] Echo Pat.Name: ANNA DANG Pat.ID: [id number] .Date: 12/23/2019 Refer.MD: Noman Maria Exam Time: 11:29:00 AM Study Type: Echo Height: 165cm Weight: 70.8kg BSA: 1.78 m2 Age: 8 2000,19Y Sex: FEMALE Sonogrphr: Olga Cortes SOFIA Pat. Stat.:Outpatient CPT - 4: 24233, 78512, 27493, 78477 Reason for Study: Suspected Cardiac Abnormality History / Clinical: Suspected cardiac anomaly 137 01/20/2020 Procedures: 2D Complete, Doppler Complete, Color Flow Visit ID: [id number] SUMMARY: Study Data: GA: 36/0 weeks. JUANITA: 01/20/2020 . : 1. Para: 0. Type: Chapman. Lie: Vertex. 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 Findings: Anatomic Relationships: Left sided cardiac apex (levocardia). There is normal visceral-cardiac situs, and normal segmental cardiac anatomical relationship. Systemic Veins: There is normal systemic venous return. Pulmonary Veins: The visualized pulmonary veins drain normally to the left atrium. Right Atrium: The right atrial size is normal. Left Atrium: The left atrial size is normal. Atrial Septum: Patent foramen ovale is seen with the foramen flap bowing from right to left and color flow is right to left. Tricuspid Valve: The tricuspid valve is structurally normal. The inflow pattern is normal. Tricuspid velocity is within the normal range. There is no regurgitation present. Mitral Valve: The mitral valve is structurally normal. The inflow pattern is normal. Mitral velocity is within the normal range. There is no regurgitation present. Right Ventricle: The cavity size is normal. The wall thickness is normal. The systolic function is normal. RV Outflow Tract: The outflow tract is normal. Left Ventricle: The cavity size is normal. The wall thickness is normal. The systolic function is normal. LV Outflow Tract: The outflow tract is normal. Ventricular Septum: There is tiny midmuscular defect with bidirectional shunting. Pulmonary Valve: Leaflets exhibited normal mobility. The transpulmonic velocity is within the normal range. There is no regurgitation present. Aortic Valve: Leaflets exhibited normal mobility. The transaortic velocity is within the normal range. There is no regurgitation present. Pulmonary Artery: The MPA is normal with confluent branch pulmonary arteries. Aorta: aortic arch visualized and is without obstruction by 2D, color flow and Doppler. Ductus Arteriosus: The antegrade flow velocity and pattern in the ductal arch is normal. A normal ductus arteriosus is appreciated. Hydrops Assessment: No pericardial effusion. No evidence of ascites or pleural effusion. Rhythm: The rhythm is normal. There is 1:1 AV conduction. Dopplers: Flow in the ductus venosus is not well visualized. The umbilical vein flow pattern is normal. The umbilical artery flow pattern is normal. MEASUREMENTS: DOPPLER Pulmonic Valve PV pkPG 2.01 mmHg PV pkVel 0.71 m/s HR HR 142 bpm Signed 12/23/2019 06:28 PM Urvashi Fox MD Noman Maria MD ECHO ORDERABLES Performing Organization Address City/State/[facility] [place] Phone Number [facility] [address] [place] [address] * SONOGRAM - COMPLETE (11/17/2019 2:01 PM CDT) Anatomical Region Laterality Modality Other 11/17/2019 2:01 PM CDT Narrative 11/17/2019 4:53 PM CDT ?[facility] ?PHONE: ??FAX: ? Pat. Name: ?ANNA DANG Rosalba. No: ?[id number] Study Date: ?? 11/17/2019 ??2:01pm , Age: ? 2000, 19 Pregnancies: ?? 1 Height: ? 65 in Weight: ? 137 lb LMP: ?04/15/2019 GA by LMP: ?30w6d GA by US: ? 30w2d ?? JUANITA: 01/24/2020 GA Selected: ??30w6d (LMP) JUANITA: ?01/20/2020 Referring MD: Hermann Stahl MD Can Solderer: ??Christin Jacobs, TYRON, [facility] CPT4: ? 23605 BMI: ?22.8 Hist/Ind: ? EIF and IUGR on outside exam ?FOB hole in heart/closed a few months after MEASUREMENTS & AGE ? GROWTH EVALUATION Measurement ??GA ? Range ? Srce %for GA Ratios ----- ---- ------- BPD ??7.7 cm 31w0d (01m4t-86x3f) Hadl BPD 42% FL/BPD 0.72 (0.71 - 0.87) HC ??29.5 cm 32w4d (74w5i-77z7z) Hadl HC ??62% FL/AC ??0.21 (0.20 - 0.24) AC ??26.2 cm 30w3d (09m1z-57b5y) Hadl AC ??31% HC/AC ??1.13 (0.97 - 1.16) FL ?? 5.5 cm 29w1d (14x4d-03f8h) Hadl FL ??4% CI ? 0.72 (0.70 - 0.86) HL ?? 5.0 cm 29w3d (61j4i-69w8x) Clark HL ??25% Cere 4.0 cm 32w3d (37l0q-46g7m) Hill Cere78% GA for sonogram 30w2d (42k1l-28u0s) ?? Weight Estimate: based on (BPD,HC,AC,FL) Hadlock ?Weight: 1538 gm (1314-1763gm) Had ? : 3lbs, 6oz ? Normal: 1732 gm (1299- 2165gm) Had ? Wt% ? 20% for 30w6d Amniotic Fluid Index: 20.4cm (08.8-23.8) Q1: 5.1cm ??Q2: 5.4cm ??Q3: 4.4cm ??Q4: 5.5cm ?? EVAL, PLACENTA Presentation: cephalic Umbilical Cord: 3 Vessels Placenta: anterior Amniotic Fluid Volume: normal Anatomy!Normal!Abnormal!Suboptimal!Prev. Seen!Comments Cranium ?! ?? x ??! ?! ?! ?! Mdl (CSP/Thal! ?? x ??! ?! ?! ?! Ventricles ?? ! ?? x ??! ?! ?! ?! Choroid Plexu! ?? x ??! ?! ?! ?! Cerebellum ?? ! ?? x ??! ?! ?! ?! Cisterna M. ??! ?? x ??! ?! ?! ?! Profile ?! ?? x ??! ?! ?! ?! Nasal Bone ?? ! ?? x ??! ?! ?! ?! Lip ?! ?? x ??! ?! ?! ?! Spine ?! ?? x ??! ?! ?! ?! Lungs ?! ?? x ??! ?! ?! ?! 4 Chamber Hea! ?! ?! ?! ?!Muscular VSD LVOT ? ! ?? x ??! ?! ?! ?! RVOT ? ! ?? x ??! ?! ?! ?! 3 Vessel View! ?? x ??! ?! ?! ?! Cross-over ?? ! ?? x ??! ?! ?! ?! Ductal Arch ??! ?? x ??! ?! ?! ?! Aortic Arch ??! ?? x ??! ?! ?! ?! Caval View ?? ! ?? x ??! ?! ?! ?! Situs ?! ?? x ??! ?! ?! ?! Diaphragm ?! ?? x ??! ?! ?! ?! Stomach ?! ?? x ??! ?! ?! ?! Bowel ?! ?? x ??! ?! ?! ?! Kidneys ?! ?? x ??! ?! ?! ?! Bladder ?! ?? x ??! ?! ?! ?! 3 Vessel Cord! ?? x ??! ?! ?! ?! Cord In! ?? x ??! ?! ?! ?! Upper Extremi! ?? x ??! ?! ?! ?! Hands ?! ?? x ??! ?! ?! ?! Lower Extreme! ?? x ??! ?! ?! ?! Feet ? ! ?? x ??! ?! ?! ?! External Natividad! ?? x ??! ?! ?! ?!Female Placental Cor! ?? x ??! ?! ?! ?! CLINICAL SUMMARY Study Number: 1 ?? A single fetus is seen in cephalic presentation. ??The measurements today are consistent with appropriate size. ??The JUANITA is based on LMP and a prior ultrasound. ??The amniotic fluid volume is within normal limits. ?? The anatomy was limited by position. ?? Within the heart there is a ventricular septal defect measuring approximately 1.9 mm and appears to be in the muscular portion of the ventricular septum. ??No other malformations were seen within the limitations of ultrasound. ?? IMPRESSION: Single. live intrauterine at 30w6d ?? size is within normal limits ?? Amniotic fluid volume: within normal limits Within the heart there is a ventricular septal defect measuring approximately 1.9 mm and appears to be in the muscular portion of the ventricular septum. ??No other malformations were seen within the limitations of ultrasound. Examination limited by positioning RECOMMEND: Referral to [facility] for [facility] consult, genetics counseling, and echo. ??Patient interested in noninvasive testing for aneuploidy today (NIPT) to include screening for trisomy 21, trisomy 18, trisomy 13, and 22 Q deletion for DiGeorge syndrome. ??Reviewed case by phone with the [facility] genetics counselor Ms. Marcela Bernardo and it my understanding that she is in agreement with the plan. ??The patient and her family members questions were answered. Ultrasound in 4 weeks for growth. ?? Thank you for allowing us they opportunity to care for your patient. ?? Noman Maria MD <Electronic Signature> ??11/17/2019 04:53pm Ordering Provider Unlisted MD [facility]YES ORDERA [facility] Care Teams Art Model Relationship Specialty Start Date End Date Mitzy Hudson APRN-PIECE PRESSER [address] [place] [address] PCP - General Nurse Practitioner Family 07/18/24
--- OUTSIDE RECORDS SUMMARY | 2024-10-05 11:52 | XMS_ITS | Encounter Summary ---
Author Organization [facility] Healthcare Address [address] [place] [address] Care Team Providers Care Electrical Appliance Repairer Name Role Phone TristanBethelMitzymaria ines Alexander NP Primary Care Provider [phone] Encounter Details Date Type Department Care Team (Late st Contact Info) Description 09/23/[address] [facility] [address] [place] [phone] Mel Chi MA Social History Tobacco Use Types Packs/Day Years Used Date Smoking Tobacco: Former Cigarettes Smokeless Tobacco: Never Comments:09/09 ppd Comments No Sex and Gender Information Value Date Recorded Sex Assigned at Not on file Legal Sex Female 7:55 AM CRYSTALIZER OPERATOR Gender Identity Not on file Sexual Orientation Not on file documented as of this encounter Miscellaneous Notes * Telephone Encounter - Mel Chi MA - 09/23/2024 10:23 AM CRYSTALIZER OPERATOR Called left message TALIZER OPERATOR * Telephone Encounter - Mel Chi MA - 09/23/2024 10:20 AM CRYSTALIZER OPERATOR ----- Message from Naheed Mcleod MD sent at 09/21/2024 8:07 AM CRYSTALIZER OPERATOR ----- Let patient know that the ferritin level was low and to start taking OTC Ferrous sulfate 325 mg every other day with either orange juice or Vitamin C 100 or 200mg. Will recheck it in 3 months. TALIZER OPERATOR documented in this encounter Plan of Treatment Not on file documented as of this encounter Visit Diagnoses Not on filedocumented in this encounter Care Teams Electrical Appliance Repairer Relationship Specialty Start Date End Date Tristan, Mitzy Alexander NP [address] [place] [address] PCP - General Nurse Practitioner 06/23/22 documented as of this encounter
--- OUTSIDE RECORDS SUMMARY | 2024-10-05 11:52 | XMS_ITS | Encounter Summary ---
Author Organization [facility] Address [address] [place] [address] Care Team Providers Care Atomic Process Engineer Name Role Phone Bethel Hudsonmaria ines [employer] SUPERVISOR Primary Care Provider [phone] Encounter Details Date Type Department Care Team (Late st Contact Info) Description 07/27/2024 Telephone [facility] - [facility] [address] [place] [address] Tatiana Aguilar DO [address] [facility] DIV OF ALLERGY/[place] [address] Social History Tobacco Use Types Packs/Day Years [...] encounter Miscellaneous Notes * Telephone Encounter - Courtney Gale - 07/27/2024 2:22 PM CST Current Provider: Dr. Tatiana Aguilar Reason for Call: Ms. Anna Dang is new pt. Pharmacy received ONE of her medications, please submit request for fexofenadine (Pau) 180 MG tablet which they did not receive. [id number] [id number] [address] Patient Call Back Number: [phone] R ENERGY ADVISOR documented in this encounter Plan of Treatment Not on file documented as of this encounter Visit Diagnoses Not on filedocumented in this encounter Care Teams Atomic Process Engineer Relationship Specialty Start Date End Date Hudson, KATY Forrester-PALOMO [address] [place] [address] PCP - General Nurse Practitioner Family 07/18/24 documented as of this encounter
--- OUTSIDE RECORDS SUMMARY | 2024-10-05 11:52 | XMS_ITS | Data Portability ---
Author Organization [facility] [place] Address [address] [place] [address] Assessment Encounter Date Assessment Date Assessment LastModified by Organization Details LastModified Time 08/12/2022 08/12/2022 DIscussed procedure, RBA, questions answered procedure meds sent. 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 [email or web address] Not available 08/12/2022 13:50:26 09/17/2022 09/17/2022 Unable to remove IUD with in office HSC despite grabbing it several times. suspect arm perforating into myometrium. Pt consented for same procedure under anesthesia in operating room. Will schedule. [email or web address] Not available 09/17/2022 16:21:30 10/24/2022 10/24/2022 s/p HSC iud removal- doing well normal post op exam female partner- declines BC discussed if not cycling at least every 3 mos, risk of hyperplasia/prakash gnancy, should be medically managed. Follow up WWE 2 mos [email or web address] Not available 10/24/2022 11:52:27 07/13/2024 07/13/2024 Annual gynecological exam performed. Patient will come back in a year unless there are new symptoms. [email or web address] Not available 07/13/2024 14:05:00 Plan of Treatment Reminders Order Date Submit Date Provider Last Modified By Organization Details Last Modified Time Details Appointments None recorded. Lab None recorded. Referral None recorded. Procedures None recorded. Surgeries hysterosco py, removal of foreign body (SURG) 2022 023 [facility] [place], [facility] [facility], [place], [address], 10:01:18 Imaging None recorded. Medication Orders [place] 10 mg-325 mg tablet 2021 [facility] #[id number], [address], [place], [place], [id number], 3 11:41:46 Xanax 0.5 mg tablet 2021 [facility] #[id number], [address], [place], [place], [id number], 3 11:41:43 Zofran 8 mg tablet 2021 [facility] #[id number], [address], [place], [place], [id number], 3 11:41:54 ibuprofen 800 mg tablet 2021 [facility] #[id number], [address], [place], [place], [id number], 3 11:41:49 Patient TargetsNo targets recorded. Patient InstructionsNo instructions recorded. Reason for Referral None Reported. Results Created Date Observation Date Name Description Value Unit Range Abnormal Flag Note LastModifiedBy Organization Detail LastModifiedTime 07/13/20 24 07/13/2024 IMAGE GUIDE D PAP, REFLE X HPV IF ASCUS ONLY image guided Pap, reflex HPV ASCUS only SEE RESULT S BELOW CASE REPOR T: Cytol ogy Gynec ologi nay Repor t Case: [id number] Autho sushil mann Provi tamara: Ivelisse Jefferson MD Colle cted: 07/13 1418 Order ing Locat ion: [place] [facility] Recei lazaro: 07/14 1220 First Scree n: Stevie montoya, Daksha ed, CT Rescr een: Malvin en, Vinayak ndra Speci men: Scree halima Pap - Image d, Cervi x STATE MENT OF ADEQU ACY: UNSAT ISFAC TORY SPECI MEN ----- ----- ----- ----- ----- ----- ----- ----- ----- ----- ----- ----- ----- ----- ----- ----- ----- ---- FINAL DIAGN OSIS: Unsat isfac tory for evalu ation . Inade quate squam ous epith elial compo nejulianne for diagn osis. Elect clarke ramos d by Vinayak Whyte on 07/21 at 1:05 PM ----- ----- ----- ----- ----- ----- ----- ----- ----- ----- ----- ----- ----- ----- ----- ----- ----- ---- COMME NT: Slide scree promise epifanio baptiste due to rejec tion by the Thinp rep Imagi ng Syste m. CLINI NAY INFOR MATIO N: Menst rual Statu s: LMP (if appli cable ): Clini nay Histo ry/Pr eviou s Pap: Type of Neopl lora (if appli cable ): Signi ficnorman t Clini nay Findi ngs: Other Histo ry: Hormo gumaro (if appli cable ): Not Available [facility] (Lab) [address], [place], [address], 07/21/2024 14:10:14 Result Notes None recorded. Problems Name Problem SNOMED Code Status Onset Date Resolution Date Notes Provider Name and Address Organization Details Recorded Time Atypical squamous cells of undeterm ined signific ance on cervical Papanico laou smear 154797190 Active 2018 Atyp squam cell of undet signfc cyto smr crvx (ASC-US) ;Recorde d Elsewher e: No Locat ion: Shital babin [facility] S ource: EHR Furrier Apprentice dakota: N Filomena ce ID: [id number] Usman lable Time: 03:24:34 PM Not Available [facility] 15:00:12 Pregnanc y 44635201 Completed 201908/22/2020 Sofy Li [facility] 0 15:00:58 Ventricu lar septal defect 56282620 Completed Ok to deliver at [facility] 0 16:50:46 Bipolar I disorder , most recent episode depressi on 992814404 Active 2019 [facility] 0 11:10:14 Problem Notes None recorded. Procedures Surgical History Date Name Laterality Status Provider Name and Address Organization Details Recorded Time 09/29/19 23 HYSTEROSCOPY, REMOVAL OF FOREIGN BODY (SURG) completed Rsoa Simms [facility] 09/30/2022 10:01:18 09/17/19 23 Hysteroscopy completed Tiffanie Gorman MD [address], [place], [address], [facility] 09/17/2022 16:19:41 07/10/20 22 IUD Removal completed LILY Chong [address], [place], [address], [facility] 07/10/2022 16:16:12 03/14/20 20 IUD Insertion completed Miriam Ortiz [facility] 03/14/2020 11:12:08 03/12/20 20 IUD Insertion completed Lalita Hirsch [facility] 03/12/2020 17:45:24 07/23/20 19 Date of Last Pap Smear completed Sofy Li [facility] 12/30/2019 21:27:24 Imaging Results None recorded. Procedure Notes None recorded. Medical Equipment None Reported. Allergies Allergen ID Allergen Name Allergen Category Reaction Reaction Severity Criticality Documentation Date Start Date Code Code System Note Provider Name and Address Organization Details Recorded Time 21983 peanut allergeni c extract food,medi cation Not available Not available Not available 07/13/2024 09511 8 RxNorm Roxane Hoffmann [facility] 4 14:08:52 Medications Name Sig Start Date Stop Date Status Note LastModified by Organization Details LastModified Time Mirena 21 mcg/24 hr (up to 8 years) 52 mg intrauter ine device Take 1 device by intraute rine route. 10/24 completed Not Available Not Available Not Available ibuprofen 800 mg tablet TAKE 1 TABLET BY MOUTH 2 HOURS BEFORE PROCEDUR E 10/24 completed Not Available Not Available Not Available fluconazo le 150 mg tablet Take 1 tablet by oral route before meals for 2 days. 04/12 completed Not Available Not Available Not Available hydrocodo ne 5 mg-acetam inophen 325 mg tablet TAKE 1 TABLET BY MOUTH EVERY 6 HOURS NEEDED FOR PAIN 07/01 completed Not Available Not Available Not Available ondansetr on HCl 8 mg tablet TAKE 1 TABLET BY MOUTH 2 HOURS BEFORE THE PROCEDUR E 10/24 completed Not Available Not Available Not Available metronida zole 0.75 % (37.5 mg/5 gram) vaginal gel INSERT 1 APPLICAT ORFUL VAGINALL Y EVERY DAY FOR 5 DAYS 07/01 completed Not Available Not Available Not Available prednison e 20 mg tablet 07/13 completed Not Available Not Available Not Available hydrocodo ne 10 mg-acetam inophen 325 mg tablet TAKE 1 TABLET BY MOUTH 2 HOURS BEFORE PROCEDUR E 10/24 completed Not Available Not Available Not Available lamotrigi ne 25 mg tablet TAKE 1 TABLET BY MOUTH FOR 14 DAYS. INCREASE TO 1 TABLET 2 TIMES DAILY FOR 14 DAYS 07/13 completed Not Available Not Available Not Available Macrobid 100 mg capsule Take 1 capsule every 12 hours by oral route. 09/05 completed Not Available Not Available Not Available alprazola m 0.5 mg tablet TAKE 1 TABLET BY MOUTH 2 HOURS BEFORE PROCEDUR E 10/24 completed Not Available Not Available Not Available dicyclomi ne 20 mg tablet 12/29 completed Not Available Not Available Not Available cephalexi n 500 mg capsule Take one tablet by oral route twice daily for 7 days 08/22 completed Not Available Not Available Not Available nystatin 100,000 unit/gram topical cream APPLY TO THE AFFECTED AREA(S) BY TOPICAL ROUTE 2 TIMES PER DAY 02/21 completed Not Available Not Available Not Available mupirocin 2 % topical ointment 08/22 completed Not Available Not Available Not Available metoprolo l succinate ER 25 mg tablet,ex tended release 24 hr TAKE 1/2 TABLET BY MOUTH EVERY DAY active Not Available Not Available No t Available lamotrigi ne 100 mg tablet TAKE 1/2 TABLET BY MOUTH TWICE DAILY DIRECTED active Not Available Not Available No t Available amoxicill in 875 mg-potass ium clavulana te 125 mg tablet TAKE 1 TABLET BY MOUTH EVERY 12 HOURS active Not Available Not Available No t Available chlorhexi dine gluconate 0.12 % mouthwash SWISH AND SPIT 15 ML BY MOUTH TWICE DAILY FOR 7 DAYS 10/24 completed Not Available Not Available Not Available Zofran 02/21 completed pt is only taking it PRN Not Available Not Available Not Available 09/05 completed Prescrib ed Elsewher e: Yes Loca tion: [facility] M odify By: steven saucedo DateTime : 09/29/19 02:30:00 PM Not Available Not Available Not Available sodium chloride 1,000 mg soluble tablet active Not Available Not Available Not Available + DHA 10/24 completed Not Available Not Available Not Available ID NOW COVID-19 Test Kit TEST DIRECTED TODAY 07/01 completed Not Available Not Available Not Available Vitals Date Recorded Body height Body mass index (BMI) Body weight Systolic blood pressure Diastolic blood pressure Provider Name and Address Organization Details Last Updated DateTime 08/12/2022 163.83 cm 24 kg/m2 59424.12 g 116 mm[Hg] 74 mm[Hg] [facility] 2 12:07:30 Date Recorded Body height Body mass index (BMI) Body weight Systolic blood pressure Diastolic blood pressure Provider Name and Address Organization Details Last Updated DateTime 09/17/2022 163.83 cm 23.8 kg/m2 24847.52 g 115 mm[Hg] 73 mm[Hg] [facility] 3 14:10:12 Date Recorded Body height Body mass index (BMI) Body weight Systolic blood pressure Diastolic blood pressure Provider Name and Address Organization Details Last Updated DateTime 10/24/2022 163.83 cm 24.3 kg/m2 61941.3 g 119 mm[Hg] 71 mm[Hg] [facility] 3 11:41:38 Date Recorded Body height Body mass index (BMI) Body weight Systolic blood pressure Diastolic blood pressure Provider Name and Address Organization Details Last Updated DateTime 07/13/2024 163.83 cm 24.8 kg/m2 06587.08 g 103 mm[Hg] 67 mm[Hg] Roxaneolaf Hoffmann [facility] 4 14:08:29 Social History Question Answer Notes LastModified by Organizat ion Details LastModified Time Tobacco Smoking Status Former Smoker Not Available [facility] 07/10/2020 03:28:11 What Is Your Level Of Alcohol Consumption? Occasional [id number] Information not available 07/10/2020 If You Are , What Was Your Level Of Alcohol Consumption Prior To ? Occasional [id number] Information not available 07/10/2020 Are You Blind Or Do You Have Difficulty Seeing? No Information not available 07/10/2022 In The 14 Days Before Symptom Onset, Have You Had Close Contact With A Laboratory-confir med COVID-19 While That Case Was Ill? No [email or web address] Information not available 07/13/2024 In The 14 Days Before Symptom Onset, Have You Had Close Contact With A Person Who Is Under Investigation For COVID-19 While That Person Was Ill? No [email or web address] Information not available 07/13/2024 Have You Been To An Area Known To Be High Risk For COVID-19? No [email or web address] Information not available 07/13/2024 Are You Deaf Or Do You Have Serious Difficulty Hearing? No Information not available 07/10/2022 What Type Of Diet Are You Following? REGULAR Information not available 07/10/2022 Which Illicit Or Recreational Drugs Have You Used? Marijuana [id number] Information not available 07/10/2020 Do You Or Have You Ever Used E-cigarettes Or Vape? Never Used Electronic Cigarettes [email or web address] Information not available 08/22/2020 What Was The Date Of Your Most Recent Tobacco Screening? 08/22/2020 [email or web address] Information not available 08/22/2020 Do You Or Have You Ever Used Smokeless Tobacco? Never Used Smokeless Tobacco [email or web address] Information not available 08/22/2020 How Much Tobacco Do You Smoke? No [email or web address] Information not available 08/22/2020 Smoking Pre- Yes [email or web address] Information not available 12/23/2019 Sex: Unknown Functional Status Question Answer Note LastModified by Organizat ion Details LastModified Time Do you have difficulty walking or climbing stairs? No Information not available 07/10/2022 Are you able to walk? YESWOREST Information not available 07/10/2022 Are you able to care for yourself? Yes Information not available 07/10/2022 Do you have difficulty dressing or bathing? No Information not available 07/10/2022 What is your exercise level? Occasional [id number] Information not available 07/10/2020 Mental Status None recorded. Family History Relationship Description Onset Age of this Age Resolved Age Notes LastModified by Organization Details LastModified Time Mother Asthma [email or web address] Not available 12/23/2019 18:00:02 Mother Cyst of ovary [email or web address] Not available 12/22 18:00:31 Mother Past history of pre-eclampsi a [email or web address] Not available 01/17 16:01:40 Maternal Grandmother Asthma [email or web address] Not available 18:00:02 Maternal Grandmother Hypercholest erolemia Not available 12/22 18:01:00 Maternal Grandmother Hypertensive disorder [email or web address] Not available 12/22 18:02:08 Maternal Grandmother Disorder of thyroid gland Not available 12/22 18:02:22 Maternal Grandmother Cyst of ovary [email or web address] Not available 12/22 18:02:32 Maternal Grandmother Malignant tumor of ovary [email or web address] Not available 12/22 18:03:03 Maternal Grandmother Malignant tumor of lung Not available 12/22 18:03:53 Maternal Grandfather Heart disease Not available 12/22 18:01:29 Maternal Grandfather Malignant tumor of colon [email or web address] Not available 12/22 18:03:23 Maternal Aunt Malignant tumor of breast [email or web address] Not available 12/22 18:04:32 Maternal Aunt Malignant tumor of lung [email or web address] Not available 12/22 18:04:47 Father Psychotic disorder [email or web address] Not available 12/22 18:05:12 Notes:Father: psychiatric di sease Maternal aunt: Cancer, breast, Cancer, lung Maternal grandfather: Heart disease, Diabetes mellitus, Cancer, colon Maternal grandmother: Hypertension, ovarian cyst, Cancer, ovarian, Cancer, esophageal, Asthma, Cancer, lung, High cholesterol, Thyroid disease Mother: Asthma, ovarian cyst Medical History Condition Response Anxiety Disorder Y Asthma Y Psychiatric Illness Y Gynecological History Statement/Question Response Date of Last Pap Smear 07/23/2019 Current Control Method None Date of LMP 07/13/2024 LMP Definite Obstetrics History GPAL:G 2 P 2 0 0 2 Type Value Full Term 2 Living 2 Total 2 Past Encounters Encounter ID Performer Location Encounter Start Date Encounter Closed Date Diagnosis/Indication Diagnosis SNOMED-CT Code Diagnosis ICD10 Code Diagnosis Note [id number] Katie Celaya CNM [place] [address] [place] [address] 12/23/2019 15:37:23 12/23/2019 16:21:05 Routine care 071531855 Z34.90 [id number] [address] [place] [address] 12/30/2019 14:56:37 12/30/2019 15:59:11 Routine care 375932991 Z34.90 [id number] Katie Celaya CNM [place] [address] [place] [address] 01/06/2020 12:55:22 01/06/2020 14:56:10 Routine care 417278999 Z34.90 [id number] [address] [address] 01/13/2020 14:49:23 01/13/2020 15:46:25 Routine care 633585532 Z34.90 [id number] [facility] [address] [address] 01/18/2020 12:01:38 01/18/2020 12:45:12 Routine care 051461257 Z34.90 [id number] [facility] [address] [address] 02/22/2020 12:52:10 02/22/2020 14:28:09 Candidiasis 30751601 B37.9 care 80426608 8 Z39.2 [id number] [facility] [address] [address] 03/12/2020 17:44:03 03/12/2020 18:18:29 Surveillance of intrauterine device contraception done 6142454520 58925 Z30.40 Will have IUD placed tomorrow. [id number] [place] [address] [address] 03/14/2020 09:54:26 03/14/2020 11:22:11 Insertion of intrauterine contraceptive device 23425065 Z30.430 IUD placed w/o complicati on. Patient should return to office after next period to check for string placement. Patient to expect irregular bleeding but should be seen in the ED if bleeding increases to soaking a pad an hour for at least 2 hours. She verbalized understand ing. [id number] LILY Chong [place] [address] [address] 07/10/2022 15:03:51 07/10/2022 16:40:21 Removal of intrauterine device 27453429 Z30.432 Strings unable to be located on exam, IUD removal attempted but IUD not removedPat ient tolerated procedure well. No immediate complicati ons noted.We agreed to move forward with pelvic u/s for further evaluation of IUD placementW ill likely need hysterosco py IUD removal - will await imaging and notify patient of next steps accordingl y.Pelvic u/s scheduled for tomorrowED precaution s discussed - abdominal pains, vaginal bleeding, etc [id number] Miriam Jorgedagoberto [place] [address] [address] 04/12/2020 14:10:35 04/12/2020 14:44:25 Surveillance of intrauterine device contraception done 4705889009 22815 Z30.40 RTC if any problems or concerns. Otherwise return in July for wwe with repeat pap. [id number] Katie Celaya [facility] [address],[place] [address] 08/22/2020 14:45:33 08/22/2020 16:11:52 Pain in pelvis 56070751 R10.2 Dyspareunia 47346438 N94 .10 IUD check 519692449 Z30. 431 [id number] Katie Celaya [facility] [address],[place] [address] 09/12/2020 14:08:14 09/12/2020 17:34:45 Pain in pelvis 02559079 R10.2 tx for bv and f/u with us Gynecologi c examination 62812244 Z01.419 [id number] [facility] [address] [address] 09/14/2020 10:08:32 09/14/2020 10:39:41 Pain in pelvis 87101233 R10.2 [id number] LILY Chong [place] [address] [address] 07/01/2022 14:56:03 07/01/2022 15:42:19 Pain in pelvis 54060467 R10.2 No acute pain today. Symptoms seem to have resolved 2 days ago.STI endocervic al testing sentUA today (-)UPT (-)She is interested in switching BC methods. Has tried depo, nexplanon, and IUD before.We discussed all methods.Yeny babin is most interested in phexxi. Handout given. She will consider.R TC for IUD removal - as she desires IUD removal nowED precaution s discussed Time spent in visit is a total of 30 mins with at least 50% of visit consisting of counseling and review of plan of care. Dyspareunia 51459116 N94 .10 [id number] Zoe [place] [address] [address] 07/11/2022 11:53:14 07/11/2022 12:58:16 Pain in pelvis 24739197 R10.2 [id number] Tiffanie Gorman MD [place] [address] [address] 07/21/2022 12:44:34 07/21/2022 13:40:11 IUD threads lost 630193627 T83.89XD [id number] Tiffanie Gormna MD [place] [address] [address] 08/12/2022 11:54:51 08/12/2022 13:51:20 IUD threads lost 163150775 T83.89XD Preoperative state 07194 002 Z78.9 [id number] Tiffanie Gorman MD [place] [address] [address] 09/17/2022 14:04:24 09/17/2022 16:54:46 Mechanical complication of intrauterine contraceptive device 764612028 T83.39XD [id number] Tiffanie Gorman MD [place] [address] [address] 10/24/2022 11:36:25 10/24/2022 12:33:06 Postoperative visit 805991647 Z09 Irregular periods 827109 07 N92.6 [id number] CHELITA RAE MD [place] [address] [address] 07/13/2024 14:00:29 07/14/2024 10:52:18 Gynecologic examination 03932263 Z01.419 Well woman care- Cervical cancer screening: Pap smear obtained today, will follow up on the results with the patient as they become available- Breast cancer screening: mammogram not indicated- Colon cancer screening: does not qualify- HPV immunizati on: unsure- STD testing: declined- hereditary cancer screening: does not qualify for testing Premenstru al dysphoric disorder 665960 F32.81 - reports worsening depression during week prior to menses; otherwise well controlled BPD- no SI/HI- discussed treatment options including luteal phase SSRI (would recommend discussion with psych prior to starting due to BPD) vs OCPs to inhibit ovulation and decrease hormonal lability- patient to consider options Hirsutism 842617772 L68. 0 - patient reports increased facial hair and acne over the past year- hx of irregular periods however currently regular- discussed possible PCOS diagnosis, however has not had US to confirm presence of polycystic ovaries- discussed treatment options including pravin-inosit ol and OCPs- patient to consider and call clinic if she would like to start OCPs Health Concerns Section Related Observation LastModified by Organization Detai ls LastModified Time None Recorded Concern Status LastModified by Organization Details LastModified Time None Recorded Advance Directives Directive None Recorded Payers Encounter Date Sequence Insurance Name Policy Number Policy Olivares Covered Member ID Olivares Member ID Guarantor Name 08/12/2022 1 [employer] [place] [id number] [facility] [id number] 09/17/2022 1 [employer] [place] [id number] [employer] [id number] 10/24/2022 1 [employer] [place] [id number] [employer] [id number] 07/13/2024 1 [employer] [place] [id number] [employer] [id number] Notes Date Note Type Note Provider Name and Address Organization Details Recorded Time 08/12/2022 text/html Preop for HSC IU D removal in office. tara escobedo and unable to grab. Very anxious about the procedure. Tiffanie Goramn MD [address], [place], [address], [facility] 08/12/2022 13:50:42 09/17/2022 text/html Here for HSC and IUD removal. string short, unable to remove blindly. Tiffanie Gorman MD [address], [place], [address], [facility] 09/17/2022 16:22:56 10/24/2022 text/html Here for follow up HSC and IUD removal in OR- unable to remove in office. IN OR removed easily in once piece. Her recovery was easy, no pain. Female partner. No period yet, reports irregular periods prior to mirena use. Tiffanie Gorman MD [address], [place], [address], [facility] 10/24/2022 11:52:38 07/13/2024 text/html Presents today f or her annual well-woman exam. Denies abnormal vaginal discharge. She is sexually active and denies dyspareunia. She is not using contraception, and she states that she is satisfied. Same sex partner. She has not noticed any changes or masses in her breasts. LMP 07/13/24. Periods are Q30 days. Flow is moderate, no intermenstrual spotting. Patient reports worsening depression around the week prior to periods and believes she may have PMDD. Well controlled bipolar disorder aside from during luteal phase. Concerned about PCOS due to hx of irregular periods. Since removal of IUD, periods have been regular however she does report increased facial hair and acne. CHELITA RAE MD [address], [place], [address], [facility] 07/14/2024 10:51:01 OBGyn Episode Ob Episode Information Episode Created Date Number of Fetuses Patient Bloodtype Patient rh Status Prepregnancy Weight lbs Domestic Partner Domestic Partner Phone Father Name Rug Cutter Status 12/23/19 20 1 O Positive 137 CLOSED Fetus Data First Name Last Name Admitted to NICU Weight (g) Sex Living Outcome Pediatric Complications Fetus ID Race Codes Race Delivery Type 3061.74 6 F true Full Term VSD/nuchalx2 587 Vaginal Delivery Problems Problem Notes Problem Name Start Date End Date Resolution Snomed Code Not e Ventricular septal defect 77233724 Ok to deliver a t Rufino Chris Calculation Initial Chris Date Initial Exam Date Initial Exam Provider Initial Ultrasound Date Last Menstrual Period Date Ultra Sound Weeks Gestation 01/18/2020 12/23/2019 07/14/2019 04/15/2019 13 Eighteen To Twenty Week Chris Update Ultra Sound Date Fundal Height At Umbil Quickening Date Ultra Sound Latest Weeks Gestation Final Chris Confirmed By Final Chris Confirmed Date Final Chris Date Ultra Sound Latest Days Gestation 0 [email or web address] l1 12/30/2019 01/18/20 20 0 Pre-kerrie Flowsheet Flowsheet Date 12/23/2019 Guzmán Score Blood Edema Fundus Height Fundus Units Glucose Ketones Leukocytes Nitrite Labor Signs Protein Cervic Dilation Cervic Effacement Cervic Station neg none 34 trace Type Weight in lbs Pre/Post Dialysis Refused Weight 165.260247473683 BP Diastolic BP Location Tested BP Systolic BP Type 75 113 Fetus Heart Rate Present A 160 Fetus Movement A Yes Comments patient states that having R ight side pelvic and back pain, hand and feet pain and numbness, saw [facility]CT today and ok to deliver at [facility] Flowsheet Date 12/30/2019 Guzmán Score Blood Edema Fundus Height Fundus Units Glucose Ketones Leukocytes Nitrite Labor Signs Protein Cervic Dilation Cervic Effacement Cervic Station 35 0cm 60% -2 Type Weight in lbs Pre/Post Dialysis Refused BP Diastolic BP Location Tested BP Systolic BP Type Fetus Heart Rate Present A 160 Present Fetus Movement A Yes Comments labor precautions Flowsheet Date 01/06/2020 Guzmán Score Blood Edema Fundus Height Fundus Units Glucose Ketones Leukocytes Nitrite Labor Signs Protein Cervic Dilation Cervic Effacement Cervic Station neg trace trace 1cm 60% -2 Type Weight in lbs Pre/Post Dialysis Refused Weight 171.612405335122 BP Diastolic BP Location Tested BP Systolic BP Type 92 134 Fetus Heart Rate Present A 160 Present Fetus Movement A Yes Comments patient states that having n ausea, pressure and discharge with some itching to LD for PIH evaluation Flowsheet Date 01/13/2020 Guzmán Score Blood Edema Fundus Height Fundus Units Glucose Ketones Leukocytes Nitrite Labor Signs Protein Cervic Dilation Cervic Effacement Cervic Station 39 trace 1cm 60% -2 Type Weight in lbs Pre/Post Dialysis Refused Weight 171.603991590806 BP Diastolic BP Location Tested BP Systolic BP Type 86 124 sitting Fetus Heart Rate Present A 155 Fetus Movement A Yes Comments Pt c/o seeing spots in her v ision that happen two days in a row, headaches , dc, nausea and right arm aches . sxs resolved on own, none today Flowsheet Date 01/18/2020 Guzmán Score Blood Edema Fundus Height Fundus Units Glucose Ketones Leukocytes Nitrite Labor Signs Protein Cervic Dilation Cervic Effacement Cervic Station neg none trace Type Weight in lbs Pre/Post Dialysis Refused Weight 176.501099152868 BP Diastolic BP Location Tested BP Systolic BP Type 85 132 Fetus Heart Rate Present Fetus Movement A Yes Comments patient states that having h eartburn, nausea and abdominal pain Flowsheet Date 02/22/2020 Guzmán Score Blood Edema Fundus Height Fundus Units Glucose Ketones Leukocytes Nitrite Labor Signs Protein Cervic Dilation Cervic Effacement Cervic Station Type Weight in lbs Pre/Post Dialysis Refused Weight 158.628803619772 BP Diastolic BP Location Tested BP Systolic BP Type 67 118 Fetus Heart Rate Present Fetus Movement Comments Flowsheet Date 03/12/2020 Guzmán Score Blood Edema Fundus Height Fundus Units Glucose Ketones Leukocytes Nitrite Labor Signs Protein Cervic Dilation Cervic Effacement Cervic Station Type Weight in lbs Pre/Post Dialysis Refused Weight 160.509417446280 BP Diastolic BP Location Tested BP Systolic BP Type 75 L arm 117 sitting Fetus Heart Rate Present Fetus Movement Comments Flowsheet Date 03/14/2020 Guzmán Score Blood Edema Fundus Height Fundus Units Glucose Ketones Leukocytes Nitrite Labor Signs Protein Cervic Dilation Cervic Effacement Cervic Station Type Weight in lbs Pre/Post Dialysis Refused Weight 159.744065717498 BP Diastolic BP Location Tested BP Systolic BP Type 66 L arm 110 sitting Fetus Heart Rate Present Fetus Movement Comments Flowsheet Date 04/12/2020 Guzmán Score Blood Edema Fundus Height Fundus Units Glucose Ketones Leukocytes Nitrite Labor Signs Protein Cervic Dilation Cervic Effacement Cervic Station Type Weight in lbs Pre/Post Dialysis Refused BP Diastolic BP Location Tested BP Systolic BP Type 67 L arm 111 sitting Fetus Heart Rate Present Fetus Movement Comments Flowsheet Date 08/22/2020 Guzmán Score Blood Edema Fundus Height Fundus Units Glucose Ketones Leukocytes Nitrite Labor Signs Protein Cervic Dilation Cervic Effacement Cervic Station Type Weight in lbs Pre/Post Dialysis Refused Weight 142.401596097889 BP Diastolic BP Location Tested BP Systolic BP Type 67 113 Fetus Heart Rate Present Fetus Movement Comments Menstrual History Last Menstrual Date Menses Monthly On Bcp Conception Prior Menses Frequency Hcg Plus Date Menarche Onset Age 0804/15/2019 Delivery Information Delivery Date Delivery Type Labor Anesthesia Weeks Gestation Incision Type Labor Labor Length Hrs Delivered By Post Complications Tubal Sterilization Discharge Date Comments 0 Induce d Regional-Ep idural 41 false [id number] mater nal temp Discharge Information Feeding Method Contraceptive Method Maternal HG B and HCT Levels Ob Episode Information Episode Created Date Number of Fetuses Patient Bloodtype Patient rh Status Prepregnancy Weight lbs Domestic Partner Domestic Partner Phone Father Name Rug Cutter Status 02/22/20 20 1 DELETED Chris Calculation Initial Chris Date Initial Exam Date Initial Exam Provider Initial Ultrasound Date Last Menstrual Period Date Ultra Sound Weeks Gestation 0 Eighteen To Twenty Week Chris Update Ultra Sound Date Fundal Height At Umbil Quickening Date Ultra Sound Latest Weeks Gestation Final Chris Confirmed By Final Chris Confirmed Date Final Chris Date Ultra Sound Latest Days Gestation 0 0 Menstrual History Last Menstrual Date Menses Monthly On Bcp Conception Prior Menses Frequency Hcg Plus Date Menarche Onset Age Delivery Information Delivery Date Delivery Type Labor Anesthesia Weeks Gestation Incision Type Labor Labor Length Hrs Delivered By Post Complications Tubal Sterilization Discharge Date Comments 0 41 Discharge Information Feeding Method Contraceptive Method Maternal HG B and HCT Levels
--- OUTSIDE RECORDS SUMMARY | 2024-10-05 11:52 | XMS_ITS | Clinical Summary ---
Author Organization [facility] Address [address] [place] [address] Care Team Providers Care Dope Firer Name Role Phone Mitzy Hudson NP Primary Care Provider Allergies No known active allergies Medications [id number] [...] Depressive disorder 02/16/2021 Asthma 11/16/2019 Anxiety 11/16/2019 Encounters Date Type Department Care Team Description 09/29/2024 9:00 AM CREW LEAD - 09/29/2024 11:59 PM CREW LEAD Hospital Encounter [facility] [address] [place] [address] Obstructive sleep apnea Discharge Disposition: Discharge to home or self care 09/23/2024 Telephone [facility] [address] [place] [address] [address] [place] [address] Mel Chi MA 09/20/2024 2:20 PM CREW LEAD Lab [address] Restless leg syndrome; Iron deficiency 09/20/2024 1:15 PM CREW LEAD Office Visit [facility] Sleep Medicine at [address] [place] [address] Naheed Mcleod MD Obstructive sleep apnea (Primary Dx); Pulmonary hypertension (HCC); Hypersomnia; Overweight; Restless leg syndrome; Iron deficiency 08/29/2024 3:15 PM CREW LEAD Therapy [facility] Physical Therapy [facility] [place] [address] Darinel Davenport, PT Low back pain, unspecified back pain laterality, unspecified chronicity, unspecified whether sciatica present (Primary Dx) 07/27/2024 5:45 PM CREW LEAD Therapy [facility] Physical [place] [address] Marcella Cruz, PT Low back pain, unspecified back pain laterality, unspecified chronicity, unspecified whether sciatica present (Primary Dx) 07/22/2024 9:00 AM CREW LEAD Therapy [facility] [place] [address] Marcella Cruz, PT Low back pain, unspecified back pain laterality, unspecified chronicity, unspecified whether sciatica present (Primary Dx) 07/13/2024 9:15 AM CREW LEAD Therapy [facility] Physical Therapy [facility] [place] [address] Marcella Cruz, PT Low back pain, unspecified back pain laterality, unspecified chronicity, unspecified whether sciatica present (Primary Dx) 07/12/2024 12:47 PM CREW LEAD - 07/12/2024 11:59 PM CREW LEAD Hospital Encounter [facility] Imaging Center [address] [place] [address] Nontoxic goiter, unspecified Discharge Disposition: Discharge to home or self care 07/11/2024 9:30 AM CREW LEAD Therapy [facility] Physical Therapy [facility] [place] [address] Marcella Cruz, PT Low back pain, unspecified back pain laterality, unspecified chronicity, unspecified whether sciatica present (Primary Dx) from Last 3 Months Family History Relation Name Status Comments Father Alive Mother Alive Social History Tobacco Use Types Packs/Day Years Used Date Smoking Tobacco: Former Cigarettes Smokeless Tobacco: Never Tobacco Cessation:Counseling Given: Not Answered Comments:09/09 ppd Comments No Sex and Gender Information Value Date Recorded Sex Assigned at Not on file Legal Sex Female 7:55 AM CREW LEAD Gender Identity Not on file Sexual Orientation Not on file Obstetrics History Para Term AB IAB SAB Ectopic Multiple Livin g Live Births 1 Date Outcome GA Total Labor Labor/2nd/3rd Weight Sex Type Anes PTL Yolande A1 A5 Name Clin Last Filed Vital Signs Vital Sign Reading Time Taken Comments Blood Pressure 116/72 09/20/2024 1:29 PM CREW LEAD Pulse 90 09/20/2024 1:29 PM CREW LEAD Temperature 36.4 ??C (97.5 ??F) 06/18/2022 2:17 PM CD T Respiratory Rate 18 06/29/2023 2:27 PM CDT Oxygen Saturation 98% 09/20/2024 1:29 PM CREW LEAD Inhaled Oxygen Concentration - - Weight 68.5 kg (151 lb) 09/20/2024 1:29 PM CREW LEAD Height 165.1 cm (5' 5 ) 09/20/2024 1:29 PM CREW LEAD Body Mass Index 25.13 09/20/2024 1:29 PM CREW LEAD Plan of Treatment Health Maintenance Due Date Last Done Comments Cervical Cancer Screening 1998 Depression Screening 1998 Hepatitis C Screening 1998 Pneumococcal vaccine <65 (1 of 2 - PCV) 2004 Regular Well Visit/Exam 18-64 2016 DTaP/Tdap/Td Vaccine (7 - Td or Tdap) 04/24/2020 04/24/2010, 06/01/2003, 09/26/1999, Additional history exists Influenza Vaccine (#1) 2024 3, 10/14/2012, 06/10/2011, Additional history exists Varicella Vaccines Completed 12/28/2006, 07/02/1999 HPV Vaccines Completed 01/16/2010, 09/07, 07/05/2009 Procedures Procedure Name Priority Date/Time Associated Diagnosis Comments PORTABLE/HOME SLEEP STUDY Routine 10/03/2024 Obstructive sleep apnea FERRITIN Routine 09/20/2024 2:19 PM CREW LEAD Restless leg syndrome Iron deficiency US THYROID Schedule Routine, Read Routine (OP Routine) 07/12/2024 1:11 PM CREW LEAD Nontoxic goiter, unspecified from Last 3 Months Results * Portable/Home Sleep Study (10/03/2024) Impressions Naheed Mcleod MD - 10/03/2024 HOME SLEEP APNEA TEST HISTORY: Anna Dang is a 24 y.o. female who presents for Home sleep apnea test. (HSAT). Reason for sleep study: Snoring, excessive daytime sleepiness, pulmonary hypertension Gardiner Sleepiness Score: 4 Weight: 151 lbs BMI: 25.13 ?? PROCEDURE: This is a single night diagnostic study. This Home Sleep apnea Test (HSAT) utilized an unattended FDA approved RedMed apnea link home air portable monitoring device investigating for obstructive sleep apnea. The patient was provided instructions of the device and application by the registered certified ophthalmic technologist at the [facility]. This test was performed without a ct scan technologist in attendance. In this study, the following parameters were monitored: Kait-nasal airflow, snoring, chest respiratory effort, abdominal respiratory effort, body position, movement, oxygen saturation, and heart rate. Respiratory events are scored according to the criteria from The [place] [employer] (AASM) Manual for [...] be taken into consideration. Naheed Mcleod MD [facility] Sleep Medicine Narrative Naheed Mcleod MD - 10/03/2024 Ocst is ready for review Naheed Mcleod MD SLEEP CENTER ORDERABLES Final Re sult * Ferritin (09/20/2024 2:19 PM CREW LEAD) Ferritin 50 15 - 150 ng/mL Blood 09/20/2024 2:19 PM CREW LEAD 09/20/2024 4:08 PM CREW LEAD Naheed Mcleod MD LAB BLOOD ORDERABLES Final Resul t [facility] Department [place] [address] * US Thyroid (07/12/2024 1:11 PM CREW LEAD) Anatomical Region Laterality Modality Head and Neck N/A Ultrasound 07/15/2024 1:19 PM CREW LEAD Narrative 07/15/2024 1:20 PM CREW LEAD EXAM DESCRIPTION: ?? US THYROID REASON FOR [...] PM T: ??07/15/2024 1:20 PM Report ID: [id number] Reading Location: ??[id number] Procedure Note Ninfa Dumas MD - 07/15/2024 [...] Ninfa Dumas M.D. TW: RAYMOND Report ID: [id number] Reading Location: [id number] us Mitzy Hudson BOTTOM POLISHER IMG US PROCEDURES Final Resu lt from Last 3 Months Insurance Care Teams Dope Firer Relationship Specialty Start Date End Date Mitzy Hudson NP [address] [place] [address] PCP - General Nurse Practitioner 06/23/22
--- OUTSIDE RECORDS SUMMARY | 2024-10-05 11:53 | XMS_ITS | Clinical Summary ---
Author Organization [facility] [employer] Address [address] [place] [address] Care Team Providers Care Textile Dyer Name Role Phone Mitzy Hudson KATY-TIRE SETTER Primary Care Provider [phone]- [phone] Source Comments [facility] [employer],non-owned Affiliates and Associated Physician Practices is amultiple site organization consisting of ambulatory clinics and hospital sitesin [place], [place], [place] and [place]. This disclosure is being madepursuant to the Care Everywhere program and may not contain all information available regarding this patient. Last updated 18.[facility] [employer] Allergies Active Allergy Reactions Criticality Noted Date [...] sprayIndications:S easonal allergic rhinitis due to pollen,Rhinorrhea [place] 2 (two) sprays into each nostril once daily 16 g 07/18/2024 Active Active Problems Problem Noted Date Diagnosed Date Supervision of normal first , antepartu m 11/16/2019 Echogenic intracardiac focus of fetus on ultrasound 11/16/2019 Overview (11/16/2019): Noted in [place] on outside scan Encounter for ultrasound 11/16/2019 Poor growth affecting management of mother, antepartum 11/16/2019 Anxiety 11/16/2019 Asthma 11/16/2019 Bipolar depression 11/16/2019 Encounters Date Type Department Care Team Description 07/27/2024 Telephone [facility] [address] [place] [address], [place] [address] Tatiana Aguilar DO 07/18/2024 3:00 PM B2B SALES MANAGER Office Visit [facility] [address] [place] [address], [place] [address] Tatiana Aguilar DO Chronic urticaria (Primary Dx); Seasonal allergic rhinitis due to pollen; Mild intermittent asthma without complication (HCC); Abdominal bloating; Rhinorrhea 07/18/2024 Travel 07/05/2024 Travel from Last 3 Months Family History Medical History Relation Name Comments Other - Gastrointestinal Father Alzheimer's Disease Maternal Grandmother Other Mother Relation Name Status Comments Father Alive Maternal Grandfather Maternal Grandmother Alive Mother Alive Paternal Grandfather Paternal Grandmother Alive half-brother Alive half-sister 1 Alive half-sister 2 Alive Social History Tobacco Use Types Packs/Day [...] Comments Blood Pressure 111/75 07/18/2024 3:13 PM B2B SALES MANAGER Pulse 67 07/18/2024 3:13 PM B2B SALES MANAGER Temperature 37 ??C (98.6 ??F) 07/18/2024 3:13 PM B2B SALES MANAGER Respiratory Rate 18 07/18/2024 3:13 PM B2B SALES MANAGER Oxygen Saturation 98% 07/18/2024 3:13 PM B2B SALES MANAGER Inhaled Oxygen Concentration - - Weight 67.6 kg (149 lb) 07/18/2024 3:13 PM B2B SALES MANAGER Height 165.1 cm (5' 5 ) 07/18/2024 3:13 PM B2B SALES MANAGER Body Mass Index 24.79 07/18/2024 3:13 PM B2B SALES MANAGER Plan of Treatment Health Maintenance Due Date Last Done Comments PAP SMEAR 1998 HIV SCREENING 2013 HPV VACCINE (1 - 3-dose series) 2013 HEPATITIS C SCREENING 06/22/2016 DTAP/TDAP/TD VACCINES (1 - Tdap) 2017 HEPATITIS B VACCINE (1 of 3 - 19+ 3-dose series) 2017 PNEUMOCOCCAL VACCINE (1 of 2 - PCV) 2017 COVID-19 VACCINE (1 - season) 2024 INFLUENZA VACCINE (#1) 2024 3, 10/14/2012, 06/10/2011, Additional history exists ZOSTER VACCINE (1 of 2) 2048 HIB VACCINE Aged Out No longer eligi ble based on patient's age to complete this topic MENINGOCOCCAL (Group B) VACCINE Aged Out No longer eligible based on patient's age to complete this topic MENINGOCOCCAL VACCINE Aged Out No loy adis eligible based on patient's age to complete this topic Care Teams Textile Dyer Relationship Specialty Start Date End Date Mitzy Hudson APRN-TIRE SETTER [address] [place] [address] PCP - General Nurse Practitioner Family 07/18/24
== END 2024-10-05 10:45 | disposition home or self-care (01) ==
LOC: ANHIMG 10:46
PROVIDERS: PCP Nurse Practitioner Family; Visit Provider Nurse Practitioner Family
DX: R22.32 Localized swelling, mass and lump, left upper limb (principal)
CPT/HCPCS: 76882

== ENCOUNTER 2024-12-14 07:55 | Outpatient (CLI) | payer BC, SELFPAY ==
--- NOTE | ~2024-12-14 | CT_ITS ---
Clinical Indication: Chest pain CT Scan of the Chest with Contrast: Technique: Contiguous sections were acquired throughout the chest after intravenous administration of 100 cc of Omnipaque 350. Dose reduction technique was used on this scan by utilizing automated expos ure control and iterative reconstruction technique. The dose-length product (DLP) was 150.72 mGy-cm. Findings: There is no evidence of any significant mediastinal, hilar or axillary lymphadenopathy. There is no f illing defect in the pulmonary arterial tree to suggest pulmonary embolus. There is no evidence of ao rtic dissection or aneurysm. There is no evidence of pleural or pericardial effusion. The lungs are clear. No pulmonary nodules or infiltrates are noted. Images through the upper abdomen reveal no abnormalities. Impression: No evidence of pulmonary embolus, aortic dissection, or aortic aneurysm. Clear lungs. Reviewed, dictated and finalized at [facility]. Impression: No evidence of pulmonary embolus, aortic dissection, or aortic aneurysm. Clear lungs.
--- OUTSIDE RECORDS SUMMARY | 2024-12-14 08:09 | XMS_ITS | Clinical Summary ---
Author Organization [facility] [employer] Address [address] [place] [address] Care Team Providers Care Automotive Worker Name Role Phone Mitzy Hudson KATY-SUPERVISOR SHOW OPERATIONS Primary Care Provider [phone]- [phone] Source Comments [facility] [employer],non-owned Affiliates and Associated Physician Practices is amultiple site organization consisting of ambulatory clinics and hospital sitesin [place], [place], [place] and [place]. This disclosure is being madepursuant to the Care Everywhere program and may not contain all information available regarding this patient. Last updated 18.[facility] [employer] Allergies Active Allergy Reactions Criticality Noted Date [...] sprayIndications:S easonal allergic rhinitis due to pollen,Rhinorrhea [place] 2 (two) sprays into each nostril once daily 16 g 07/18/2024 Active Active Problems Problem Noted Date Diagnosed Date Supervision of normal first , antepartu m 11/16/2019 Echogenic intracardiac focus of fetus on ultrasound 11/16/2019 Overview (11/16/2019): Noted in LV on outside scan Encounter for ultrasound 11/16/2019 Poor growth affecting management of mother, antepartum 11/16/2019 Anxiety 11/16/2019 Asthma 11/16/2019 Bipolar depression 11/16/2019 Family History Medical History Relation Name Comments [...] Comments Blood Pressure 111/75 07/18/2024 3:13 PM CLOTHING WORKER Pulse 67 07/18/2024 3:13 PM CLOTHING WORKER Temperature 37 C (98.6 F) 07/18/2024 3:13 PM CLOTHING WORKER Respiratory Rate 18 07/18/2024 3:13 PM CLOTHING WORKER Oxygen Saturation 98% 07/18/2024 3:13 PM CLOTHING WORKER Inhaled Oxygen Concentration - - Weight 67.6 kg (149 lb) 07/18/2024 3:13 PM CLOTHING WORKER Height 165.1 cm (5' 5 ) 07/18/2024 3:13 PM CLOTHING WORKER Body Mass Index 24.79 07/18/2024 3:13 PM CLOTHING WORKER Plan of Treatment Health Maintenance Due Date Last Done Comments PAP SMEAR 1998 HIV SCREENING 2013 HPV VACCINE (1 - 3-dose series) 2013 HEPATITIS C SCREENING 06/22/2016 DTAP/TDAP/TD VACCINES (1 - Tdap) 2017 HEPATITIS B VACCINE (1 of 3 - 19+ 3-dose series) 2017 PNEUMOCOCCAL VACCINE (1 of 2 - PCV) 2017 COVID-19 VACCINE (1 - season) 2024 INFLUENZA VACCINE (Season Ended) 2025 06/08/2013, 10/14/2012, 06/10/2011, Additional history exists ZOSTER VACCINE (1 of 2) 2048 HIB VACCINE Aged Out No longer eligi ble based on patient's age to complete this topic MENINGOCOCCAL (Group B) VACCINE SHARED DECISION-MAKING Aged Out No longer eligible based on patient's age to complete this topic MENINGOCOCCAL GROUPS A/C/Y/W VACCINE Aged Out No longer eligible based on patient's age to complete this topic Care Teams Automotive Worker Relationship Specialty Start Date End Date Mitzy Hudson APRN-PALOMO [address] [place] [id number] PCP - General Nurse Practitioner Family 07/18/24
--- OUTSIDE RECORDS SUMMARY | 2024-12-14 08:09 | XMS_ITS | Referral Summary ---
Author Organization [facility] Address [address] [place] [address] Care Team Providers Care Instructor Programmable Controllers Name Role Phone TristanBethelMitzymaria ines Alexander NP Primary Care Provider [phone] Encounters Date Type Department Care Team Description 12/12/2024 4:00 PM CDT Lab [address] [address] Arrived 11/16/2024 3:10 PM CDT - 11/16/2024 11:59 PM CDT Hospital Encounter [facility] [address] [place] [address] Right knee pain, unspecified chronicity; Left knee pain, unspecified chronicity Discharge Disposition: Discharge to home or self care 11/16/2024 2:30 PM CDT Office Visit [facility] Sleep Medicine at [address] [phone] Naheed Mcleod MD Snoring (Primary Dx); Hypersomnia; Restless leg syndrome; Overweight 09/29/2024 9:00 AM PRECISION MILLWRIGHT - 09/29/2024 11:59 PM PRECISION MILLWRIGHT Hospital Encounter [facility] [address] [place] [address] Obstructive sleep apnea Discharge Disposition: Discharge to home or self care 09/23/2024 Telephone [facility] [address] [place] [phone] Mel Chi MA 09/20/2024 2:20 PM PRECISION MILLWRIGHT Lab [address] Restless leg syndrome; Iron deficiency 09/20/2024 1:15 PM PRECISION MILLWRIGHT Office Visit [facility] Sleep Medicine at [address] [phone] Naheed Mcleod MD Obstructive sleep apnea (Primary Dx); Pulmonary hypertension (HCC); Hypersomnia; Overweight; Restless leg syndrome; Iron deficiency from Last 3 Months Allergies No known active allergies Medications lamoTRIgine (LaMICtal) 100 mg tablet Take 1 tablet (100 mg total) by mouth daily Active metoprolol XL (TOPROL-XL) 25 mg extended release tablet Take 1 tablet (25 mg total) by mouth daily 30 tablet 11 06/29/2023 Active Vyvanse 10 mg capsule Take 1 capsule (10 mg total) by mouth every morning 09/29/2024 Active Active Problems Problem Noted Date Diagnosed Date POTS (postural orthostatic tachycardia syndrome) 07/02/2023 Syncope and collapse 05/26/2023 Orthostatic dizziness 05/26/2023 Chest tightness 05/26/2023 Depressive disorder 02/16/2021 Asthma 11/16/2019 Anxiety 11/16/2019 Resolved Problems Problem Noted Date Diagnosed Date Resolved Date Obstructive sleep apnea 10/04/202411/05 Social History Tobacco Use Types Packs/Day Years Used Date Smoking Tobacco: Former Cigarettes Smokeless Tobacco: Never Tobacco Cessation:Counseling Given: Not Answered Comments:09/09 ppd Comments No Sex and Gender Information Value Date Recorded Sex Assigned at Not on file Legal Sex Female 7:55 AM PRECISION MILLWRIGHT Gender Identity Not on file Sexual Orientation Not on file Last Filed Vital Signs Vital Sign Reading Time Taken Comments Blood Pressure 123/71 11/16/2024 2:28 PM CDT Pulse 76 11/16/2024 2:28 PM CDT Temperature 36.4 C (97.5 F) 06/18/2022 2:17 PM CDT Respiratory Rate 18 06/29/2023 2:27 PM CDT Oxygen Saturation 97% 11/16/2024 2:28 PM CDT Inhaled Oxygen Concentration - - Weight 69.4 kg (153 lb) 11/16/2024 2:28 PM CDT Height 165.1 cm (5' 5 ) 11/16/2024 2:28 PM CDT Body Mass Index 25.46 11/16/2024 2:28 PM CDT Plan of Treatment Not on file Procedures Procedure Name Priority Date/Time Associated Diagnosis Comments D-DIMER, QUANTITATIVE Routine 12/12/2024 4:12 PM CDT XR KNEE LEFT 3 VIEWS Schedule Routine, Read Routine (OP Routine) 11/16/2024 3:20 PM CDT Left knee pain, unspecified chronicity XR KNEE RIGHT 3 VIEWS Schedule Routine, Read Routine (OP Routine) 11/16/2024 3:20 PM CDT Right knee pain, unspecified chronicity PORTABLE/HOME SLEEP STUDY Routine 10/03/2024 Obstructive sleep apnea FERRITIN Routine 09/20/2024 2:19 PM PRECISION MILLWRIGHT Restless leg syndrome Iron deficiency from Last 3 Months Results * D-dimer, quantitative (12/12/2024 4:12 PM CDT) D-Dimer <215 <=499 ng/mL FEU [facility] ([place]) Comment: Interpretive data FDA approved the D-dimer, in conjunction with a low or moderate pretest probability score, to exclude venous thromboembolic events (VTE) (PE and DVT) in outpatients when the D-dimer result is < 500 ng/ml FEU. Evidence supports using an age-adjusted D-dimer cut-off for outpatients older than 50 (age x 10) to improve specificity without sacrificing sensitivity. Example: age 68, VTE cut-off 680 ng/ml FEU. References; Schouten HT et al. Brit Med J. 2013;346:f2492. Belem et al. Annals Int Med. 2015;163:701-11. Current interpretive data was last revised on 2019. Blood 12/12/2024 4:12 PM CDT 12/12/2024 4:24 PM CDT us Ilir Uriarte MD LAB BLOOD ORDERABLES Final Result [facility] ([place]) 1 [facility] Department [place] [address] * XR Knee Right 3 Views (11/16/2024 3:20 PM CDT) Anatomical Region Laterality Modality Lower Extremities, Knee Right Computed Radiography 11/18/2024 4:19 PM CDT Narrative 11/18/2024 4:21 PM CDT EXAM DESCRIPTION: XR KNEE RIGHT 3 VIEWS; XR KNEE LEFT 3 VIEWS REASON FOR STUDY: pain Chronic bilateral knee pain Worsening pain x 2023 Left knee hurts worse No prior fx or surgeries on bilateral knees FINDINGS: Three views each knee submitted without comparison. No acute fracture. Alignment is normal. The joint spaces are normal. No effusions. IMPRESSION: Normal bilateral knee evaluation. THIS IS AN ELECTRONICALLY VERIFIED FINAL REPORT 11/18/2024 4:21 PM - Electronically signed by Ricardo Gonzalez M.D. MF: GEORGE Report ID: [id number] Reading Location: [id number] Procedure Note Ricardo Gonzalez MD - 11/18/2024 EXAM DESCRIPTION: XR KNEE RIGHT 3 VIEWS; XR KNEE LEFT 3 VIEWS REASON FOR STUDY: pain Chronic bilateral knee pain Worsening pain x Nov. 2023 Left knee hurts worse No prior fx or surgeries on bilateral knees FINDINGS: Three views each knee submitted without comparison. No acute fracture. Alignment is normal. The joint spaces are normal. No effusions. IMPRESSION: Normal bilateral knee evaluation. THIS IS AN ELECTRONICALLY VERIFIED FINAL REPORT 11/18/2024 4:21 PM - Electronically signed by Ricardo Gonzalez M.D. MF: GEORGE Report ID: [id number] Reading Location: [id number] us Mitzy Hudson NP IMG XR PROCEDURES Final Resu lt * XR Knee Left 3 Views (11/16/2024 3:20 PM CDT) Anatomical Region Laterality Modality Lower Extremities, Knee Left Computed Radiography 11/18/2024 4:19 PM CDT Narrative 11/18/2024 4:21 PM CDT EXAM DESCRIPTION: XR KNEE RIGHT 3 VIEWS; XR KNEE LEFT 3 VIEWS REASON FOR STUDY: pain Chronic bilateral knee pain Worsening pain x 2023 Left knee hurts worse No prior fx or surgeries on bilateral knees FINDINGS: Three views each knee submitted without comparison. No acute fracture. Alignment is normal. The joint spaces are normal. No effusions. IMPRESSION: Normal bilateral knee evaluation. THIS IS AN ELECTRONICALLY VERIFIED FINAL REPORT 11/18/2024 4:21 PM - Electronically signed by Ricardo Gonzalez M.D. MF: GEORGE Report ID: [id number] Reading Location: [id number] Procedure Note Ricardo Gonzalez MD - 11/18/2024 EXAM DESCRIPTION: XR KNEE RIGHT 3 VIEWS; XR KNEE LEFT 3 VIEWS REASON FOR STUDY: pain Chronic bilateral knee pain Worsening pain x 2023 Left knee hurts worse No prior fx or surgeries on bilateral knees FINDINGS: Three views each knee submitted without comparison. No acute fracture. Alignment is normal. The joint spaces are normal. No effusions. IMPRESSION: Normal bilateral knee evaluation. THIS IS AN ELECTRONICALLY VERIFIED FINAL REPORT 11/18/2024 4:21 PM - Electronically signed by Ricardo Gonzalez M.D. MF: GEORGE Report ID: [id number] Reading Location: [id number] Mitzy Catherine Hudson MILL SUPERVISOR IMG XR PROCEDURES Final Resu lt * Portable/Home Sleep Study (10/03/2024) Impressions Naheed Mcleod MD - 10/03/2024 HOME SLEEP APNEA TEST HISTORY: Anna Dang is a 24 y.o. female who presents for Home sleep apnea test. (HSAT). Reason for sleep study: Snoring, excessive daytime sleepiness, pulmonary hypertension [place] Sleepiness Score: 4 Weight: 151 lbs BMI: 25.13 PROCEDURE: This is a single night diagnostic study. This Home Sleep apnea Test (HSAT) utilized an unattended FDA approved RedMed apnea link home air portable monitoring device investigating for obstructive sleep apnea. The patient was provided instructions of the device and application by the registered electroencephalograph technologist at the [facility]. This test was performed without a medical technologist clinical in attendance. In this study, the following parameters were monitored: Kait-nasal airflow, snoring, chest respiratory effort, abdominal respiratory effort, body position, movement, oxygen saturation, and heart rate. Respiratory events are scored according to the criteria from The [place] Academy of Sleep Medicine (AASM) Manual for [...] be taken into consideration. Naheed Mcleod MD [facility] Sleep Medicine Narrative Naheed Mcleod MD - 10/03/2024 Ocst is ready for review us Naheed Mcleod MD SLEEP CENTER ORDERABLES Final Re sult * Ferritin (09/20/2024 2:19 PM PRECISION MILLWRIGHT) Ferritin 50 15 - 150 ng/mL Blood 09/20/2024 2:19 PM PRECISION MILLWRIGHT 09/20/2024 4:08 PM PRECISION MILLWRIGHT us Naheed Mcleod MD LAB BLOOD ORDERABLES Final Resul t [facility] ([place]) 1 [facility] [place] [address] from Last 3 Months Insurance [facility] Care Teams Instructor Programmable Controllers Relationship Specialty Start Date End Date Mitzy Hudson NP [address] [place] [address] PCP - General Nurse Practitioner 06/23/22
--- OUTSIDE RECORDS SUMMARY | 2024-12-14 08:09 | XMS_ITS | Clinical Summary ---
Author Organization [facility] Address [address] [place] [address] Phone Care Team Providers Care Logging Engineer Name Role Phone Provider, None Primary Care Provider Unavailabl e Immunizations Immunization Administration Dates Next Due [id number] nay MCV4, Unspecif ied Formulation 04/24/2010 DTAP VACCINE 06/01/2003, 0,1998,11/05,1998 Hepatitis A Vaccine, [...] Injecta ble, Undefined 06/10/2011 MMR Vaccine 10/26/2002,07/02/1999 TDAP Vaccine 04/24/2010 Varicella Vaccine Live 12/28/2006,07/02/1999 [...] history exists Influenza Immunization (#1) 05/08/202410/2012, 10/14/2012, 06/10/2011, Additional history exists SARS-COV-2 Immunization ( season) [...] to complete this topic Insurance MEDICAID [facility] Care Teams Logging Engineer Relationship Specialty Start Date End Date Provider, None ID PCP - General 08/08/18
--- OUTSIDE RECORDS SUMMARY | 2024-12-14 08:09 | XMS_ITS | Encounter Summary ---
Author Organization [facility] Address [address] [facility] [place] [address] Care Team Providers Care Rv Servicer Name Role Phone Bethel Hudsonmaria ines BURNS-DOCTOR OF NATUROPATHIC MEDICINE Primary Care Provider [phone] Encounter Details Date Type Department Care Team (Late st Contact Info) Description 07/27/2024 Telephone [facility] [address] [facility] [place] [address] Tatiana Aguilar, [address] [facility] DIV [place] [address] Social History Tobacco Use Types [...] MG tablet which they did not receive. [id number] [address] [facility] [address] [facility] [address] Patient Call Back Number: [phone] [employer] SCHO[employer] INSTRUCTOR documented in this encounter Plan of Treatment Not on file documented as of this encounter Visit Diagnoses Not on filedocumented in this encounter Care Teams Rv Servicer Relationship Specialty Start Date End Date Hudson, KATY Forrester-PALOMO [address] [place] [address] PCP - General Nurse Practitioner Family 07/18/24 documented as of this encounter
--- OUTSIDE RECORDS SUMMARY | 2024-12-14 08:09 | XMS_ITS | CONTINUITY OF CARE DOCUMENT ---
Author Name katharine nattyclaudette Address Unknown Organization [facility] Address [address] [place] [address] [address] [place] [address] Phone [phone] Care Team Providers Care Paper Hanger Name Role Phone Ilir Uriarte MD Unavailable [phone] NESS BOAT FUELER-C, SHERRIE Unavailable [phone] NESS BOAT FUELER-C, SHERRIE Unavailable PROBLEMS Condition Status Date Provider Notes Varicose veins active Ilir Uriarte MD Cardiology examination active Ilir gandara MD Postural orthostatic tachycardia syndrome active 06/20 Ilir Uriarte MD Leg edema active Ilir Uriarte MD Chest pain active Ilir Uriarte MD Sinus tachycardia - positive s1, q3, t3 active Ilir Uriarte MD Venous insufficiency, BLE active Ilir laws MD ENCOUNTERS Date Type Provider Location Encounter Diag nosis - In-person encounter Office Visit Ilir Uriarte MD [facility] Chest painSinus tachycardia - positive s1, q3, o6Xcenos insufficiency, BLE - In-person encounter Office Visit Ilir Uriarte MD [facility] Varicose veinsCardiology examinationPostural orthostatic tachycardia syndromeLeg edema VITAL SIGNS Date Observation Value Provider Body Mass Index (Ratio) 25.12 kg/m2 Alexander Uriarte MD pulse rate 88 /min Radha yang oxygen saturation, oximetry 97 % Radha Aguayo blood pressure, diastolic 85 mm[Hg] Ti kasandra Aguayo blood pressure, systolic 123 mm[Hg] Neville Aguayo weight E&M 151 [lb_av] Radha Haneyer s blood pressure, cuff size regular Ti kasandra Aguayo height E&M 65 [in_i] Radha Khanna s oxygen saturation, oximetry 99 % [facility] [place] blood pressure, cuff size regular Guy kenrick [place] blood pressure, diastolic 83 mm[Hg] Guy kenrick [place] blood pressure, systolic 115 mm[Hg] Daina garrett [place] pulse rate 96 /min [facility] [place] respiratory rate E&M 18 /min [facility] [place] Body Mass Index (Ratio) 25.19 kg/m2 [facility] [place] height in centimeters E&M 165.10 cm [facility] [place] height E&M 65 [in_i] [facility] [place] weight in kilograms E&M 68.67 kg [facility] [place] weight E&M 151.4 [lb_av] [facility] [place] ALLERGIES No Known Drug Allergies HISTORY OF MEDICATION USE Medication Status Instructions Dates Provider Indications Com ments Allergy Relief (fexofenadine) 180 mg tablet active TAKE 1 TABLET BY MOUTH DAILY Radha Aguayo metoprolol succinate 25 mg tablet extended release 24 hr active TAKE 1/2 TABLET BY MOUTH EVERY DAY Radha Aguayo Vyvanse 20 mg capsule active TAKE 1 CAPSULE BY MOUTH EVERY DAY IN THE MORNING Radha Aguayo Lamictal 100 mg tablet active [facility] [place] SOCIAL HISTORY Date Observation Value Provider number of grandchildren Ilir Uriarte MD INSURANCE PROVIDERS Payer name Policy type / Coverage type [place] red libertarian ID [facility] [id number] ADVANCE DIRECTIVES Name Date DISCUSSED - NO DECISION MADE TREATMENT PLAN Date Name Performer Cardiology Ilir Oconnell Cardiology Ilir Oconnell Cardiology Ilir Oconnell Cardiology Ilir Oconnell Cardiology Ilir Oconnell Cardiology Ilir Oconnell Cardiology Ilir Oconnell Cardiology Ilir Oconnell Cardiology Ilir Oconnell Date Name D-DIMER, QUANTITATIV E CT Angio Chest (PE P rotocol) Venous Doppler Bilat eral LE Venous Doppler Bilat eral LE - Reflux HISTORY OF PROCEDURES Procedure Date Procedure Name Provider Procedure Notes S tatus Complex e/m visit add on Ilir Uriarte MD completed EKG Ilir Uriarte MD complet ed
--- OUTSIDE RECORDS SUMMARY | 2024-12-14 08:09 | XMS_ITS | Clinical Summary ---
Author Organization [facility] Address [address] [place] [address] Care Team Providers Care Chief Medical Physicist Name Role Phone Mitzy Hudson NP Primary [...] Date Resolved Date Obstructive sleep apnea 10/04/202411/05 Encounters Date Type Department Care Team Description 12/12/2024 4:00 PM CDT Lab [address] [phone] Arrived 11/16/2024 3:10 PM CDT - 11/16/2024 11:59 PM CDT Hospital Encounter [facility] [address] [place] [address] Right knee pain, unspecified chronicity; Left knee pain, unspecified chronicity Discharge Disposition: Discharge to home or self care 11/16/2024 2:30 PM CDT Office Visit [facility] Sleep Medicine at [address] [place] [address] Naheed Mcleod MD Snoring (Primary Dx); Hypersomnia; Restless leg syndrome; Overweight 09/29/2024 9:00 AM IMPLEMENTATION PROJECT MANAGER - 09/29/2024 11:59 PM IMPLEMENTATION PROJECT MANAGER Hospital Encounter [facility] [address] [place] [address] Obstructive sleep apnea Discharge Disposition: Discharge to home or self care 09/23/2024 Telephone [facility] [address] [place] [address] [address] [place] [address] Mel Chi MA 09/20/2024 2:20 PM IMPLEMENTATION PROJECT MANAGER Lab [address] Restless leg syndrome; Iron deficiency 09/20/2024 1:15 PM IMPLEMENTATION PROJECT MANAGER Office Visit [facility] Sleep Medicine at [address] [place] [address] Naheed Mcleod MD Obstructive sleep apnea (Primary Dx); Pulmonary hypertension (HCC); Hypersomnia; Overweight; Restless leg syndrome; Iron deficiency from Last 3 Months Family History Relation Name Status Comments Father Alive Mother Alive Social History Tobacco Use Types Packs/Day Years Used Date Smoking Tobacco: Former Cigarettes Smokeless Tobacco: Never Tobacco Cessation:Counseling Given: Not Answered Comments:09/09 ppd Comments No Sex and Gender Information Value Date Recorded Sex Assigned at Not on file Legal Sex Female 7:55 AM IMPLEMENTATION PROJECT MANAGER Gender Identity Not on file Sexual Orientation [...] 11/16/2024 2:28 PM CDT Plan of Treatment Health Maintenance Due Date Last Done Comments Cervical Cancer Screening 1998 Depression Screening 1998 Hepatitis C Screening 1998 Regular Well Visit/Exam 18-64 2016 Pneumococcal vaccine <65 (1 of 2 - PCV) 2017 DTaP/Tdap/Td Vaccine (7 - Td or Tdap) 04/24/2020 04/24/2010, 06/01/2003, 09/26/1999, Additional history exists Influenza Vaccine (Season Ended) 2025 06/08/2013, 10/14/2012, 06/10/2011, Additional history exists Hepatitis B Screening Completed 1998 , 1998, 1998 Varicella Vaccines Completed 12/28/2006, 07/02/1999 HPV Vaccines [...] sleep apnea FERRITIN Routine 09/20/2024 2:19 PM IMPLEMENTATION PROJECT MANAGER Restless leg syndrome Iron deficiency from Last 3 Months Results * D-dimer, quantitative (12/12/2024 4:12 PM CDT) D-Dimer <215 <=499 ng/mL FEU [facility] ([place]) Comment: Interpretive data FDA approved the D-dimer, [...] 4:12 PM CDT 12/12/2024 4:24 PM CDT Ilir Uriarte MD LAB BLOOD ORDERABLES Final Result [facility] [place]) [address] [facility] [place] [address] * XR Knee Right 3 Views (11/16/2024 [...] Ricardo Gonzalez M.D. MF: GEORGE Report ID: [id number] Reading Location: [id number] Procedure Note Ricardo Gonzalez MD - 11/18/2024 [...] Ricardo Gonzalez M.D. MF: GEORGE Report ID: [id number] Reading Location: [id number] Mitzy Hudson LEGAL RESEARCH ANALYST IMG XR PROCEDURES Final Resu lt * [...] Ricardo Gonzalez M.D. MF: GEORGE Report ID: [id number] Reading Location: [id number] Procedure Note Ricardo Gonzalez MD - 11/18/2024 [...] Ricardo Gonzalez M.D. MF: GEORGE Report ID: [id number] Reading Location: [place] [address] [facility] Catherine Hudson LEGAL RESEARCH ANALYST IMG XR PROCEDURES Final Resu lt * Portable/Home Sleep Study (10/03/2024) Impressions Naheed Mcleod MD - 10/03/2024 HOME SLEEP APNEA TEST HISTORY: Anna Dang is a 24 y.o. female who presents for Home sleep apnea test. (HSAT). Reason for sleep study: Snoring, excessive daytime sleepiness, pulmonary hypertension [place] Sleepiness Score: 4 Weight: 151 lbs BMI: 25.13 PROCEDURE: This is a single night diagnostic study. This Home Sleep apnea Test (HSAT) utilized an unattended FDA approved KelBillet apnea link home air portable monitoring device investigating for obstructive sleep apnea. The patient was provided instructions of the device and application by the registered certified neurodiagnostic technologist at the [facility]. This test was performed without a manufacturing technologist in attendance. In this study, the following parameters were monitored: Kait-nasal airflow, snoring, chest respiratory effort, abdominal respiratory effort, body position, movement, oxygen saturation, and heart rate. Respiratory events are scored according to the criteria from The [place] Academy of Sleep Medicine (AASM) Manual for [...] be taken into consideration. Naheed Mcleod MD [facility] Sleep Medicine Narrative Naheed Mcleod MD - 10/03/2024 Ocst is ready for review Naheed Mcleod MD SLEEP CENTER ORDERABLES Final Re sult * Ferritin (09/20/2024 2:19 PM IMPLEMENTATION PROJECT MANAGER) Ferritin 50 15 - 150 ng/mL Blood 09/20/2024 2:19 PM IMPLEMENTATION PROJECT MANAGER 09/20/2024 4:08 PM IMPLEMENTATION PROJECT MANAGER Naheed Mcleod MD LAB BLOOD ORDERABLES Final Resul t Performing Organization Address City/State/[facility] Co de Phone Number [facility] [place] [address] [facility] [place] [address] from Last 3 Months Insurance [facility] Care Teams Chief Medical Physicist Relationship Specialty Start Date End Date Mitzy Hudson NP [address] [place] [address] PCP - General Nurse Practitioner 06/23/22
[2024-12-14 08:22] LABS: Estimated Glomerular Filt Rate > 60
== END 2024-12-14 07:56 | disposition home or self-care (01) ==
PROVIDERS: PCP Nurse Practitioner Family; Visit Provider Internal Medicine Cardiovascular Disease
DX: I87.2 Venous insufficiency (chronic) (peripheral) (principal); R00.0 Tachycardia, unspecified; R07.9 Chest pain, unspecified; R60.0 Localized edema; I49.8 Other specified cardiac arrhythmias; Z13.6 Encounter for screening for cardiovascular disorders; I83.90 Asymptomatic varicose veins of unspecified lower extremity
CPT/HCPCS: 71275; Q9967